=== PATIENT | female | born 1950 | race Hispanic/Latino ===

== ENCOUNTER 2020-12-23 22:35 | Observation (INO) | payer MEDICARE ==
[2020-12-23 23:44] LABS: Basophils # (Auto) 0.1 K/mm3 (0.0-0.1); Basophils % (Auto) 1.2 % (0.0-1.8); Eosinophils # (Auto) 0.1 K/mm3 (0.0-0.4); Eosinophils % (Auto) 1.9 % (0.0-4.3); Hematocrit 35.6 % (30.3-42.9); Hemoglobin 11.7 gm/dl (10.1-14.3); Lymphocytes # (Auto) 1.4 K/mm3 (1.2-5.4); Lymphocytes % (Auto) 19.4 % (13.4-35.0); Mean Corpuscular HGB Conc 33 % (30-34); Mean Corpuscular Volume 90 fl (79-97); Monocytes # (Auto) 0.5 K/mm3 (0.0-0.8); Platelet Count 315 K/mm3 (140-440); Red Blood Count 3.96 M/mm3 (3.65-5.03); Red Cell Distribution Width 13.8 % (13.2-15.2)
[2020-12-23 23:56] LABS: INR 0.99 (0.87-1.13)
[2020-12-23 23:57] LABS: Partial Thromboplastin Time 24.7 Sec. (24.2-36.6)
[2020-12-24 00:06] LABS: Alanine Aminotransferase 14 units/L (7-56); Albumin 3.8 g/dL (3.9-5); BUN/Creatinine Ratio 21; Blood Urea Nitrogen 19 mg/dL (7-17); Calcium 8.1 mg/dL (8.4-10.2); Hemolysis Index 1
[2020-12-24 00:08] LABS: Bilirubin,Direct < 0.2 mg/dL (0-0.2)
[2020-12-24] MEDS ORDERED: INSULIN REGULAR, HUMAN 100 UNITS/1 ML IV ONE (00:13)
[2020-12-24] MEDS ORDERED: ONDANSETRON 4 MG/2 ML INJ IV PRN (00:29)
[2020-12-24] MEDS ORDERED: DEXTROSE 50% IN WATER (25GM) 50 ML SYRINGE IV PRN (00:29)
[2020-12-24] MEDS ORDERED: traMADol 50 MG TAB PO PRN (00:29)
[2020-12-24] MEDS ORDERED: ACETAMINOPHEN 325 MG TAB PO PRN ×2 (00:29)
[2020-12-24] MEDS ORDERED: ALBUTEROL 2.5 MG/3 ML NEBU IH PRN (00:29)
[2020-12-24] MEDS ORDERED: NITROGLYCERIN 0.4 MG TAB SUBL SL PRN (00:29)
[2020-12-24] MEDS ORDERED: MORPHINE 2 MG/1 ML INJ IV PRN (00:29)
[2020-12-24] MEDS ORDERED: hydrALAZINE 20 MG/1 ML INJ IV PRN (00:33)
[2020-12-24] MEDS ORDERED: ASPIRIN 81 MG TAB CHEW PO ONE (00:41)
[2020-12-24] MEDS ORDERED: CLOPIDOGREL 75 MG TAB PO ONE (00:42)
[2020-12-24] MEDS ORDERED: FUROSEMIDE 40 MG/4 ML INJ IV ONE ×2 (00:44→15:47)
[2020-12-24] MEDS: HEPARIN 5,000 UNIT/1 ML VIAL SUB-Q SCH ×3 (05:40→22:38)
[2020-12-24 06:10] LABS: Basophils # (Auto) 0.1 K/mm3 (0.0-0.1); Basophils % (Auto) 1.1 % (0.0-1.8); Eosinophils # (Auto) 0.3 K/mm3 (0.0-0.4); Eosinophils % (Auto) 3.8 % (0.0-4.3); Hematocrit 32.6 % (30.3-42.9); Hemoglobin 11.2 gm/dl (10.1-14.3); Lymphocytes # (Auto) 2.5 K/mm3 (1.2-5.4); Lymphocytes % (Auto) 32.3 % (13.4-35.0); Mean Corpuscular HGB Conc 35 % (30-34); Mean Corpuscular Volume 89 fl (79-97); Monocytes # (Auto) 0.7 K/mm3 (0.0-0.8); Monocytes % (Auto) 9.5 % (0.0-7.3); Platelet Count 253 K/mm3 (140-440); Red Blood Count 3.66 M/mm3 (3.65-5.03); Red Cell Distribution Width 13.5 % (13.2-15.2)
[2020-12-24 06:27] LABS: BUN/Creatinine Ratio 21; Blood Urea Nitrogen 19 mg/dL (7-17); Calcium 8.1 mg/dL (8.4-10.2); Hemolysis Index 14
[2020-12-24] MEDS: INSULIN LISPRO 100 UNIT/ML SUB-Q SCH ×4 (08:10→22:39)
[2020-12-24] MEDS: FAMOTIDINE 20 MG TAB PO SCH ×2 (09:51→22:38)
[2020-12-24] MEDS: hydrALAZINE 25 MG TAB PO SCH ×2 (14:40→22:38)
[2020-12-24] MEDS ORDERED: FUROSEMIDE 20 MG/2 ML INJ IV ONE (16:00)
[2020-12-24] MEDS ORDERED: POTASSIUM CHLORIDE ER 20 MEQ TAB PO ONE (16:32)
[2020-12-25] MEDS: LEVOTHYROXINE 50 MCG TAB PO SCH (06:00)
[2020-12-25] MEDS: hydrALAZINE 25 MG TAB PO SCH ×3 (06:00→22:46)
[2020-12-25] MEDS: HEPARIN 5,000 UNIT/1 ML VIAL SUB-Q SCH ×3 (06:00→22:47)
[2020-12-25 06:21] LABS: Basophils # (Auto) 0.1 K/mm3 (0.0-0.1); Basophils % (Auto) 1.4 % (0.0-1.8); Eosinophils # (Auto) 0.5 K/mm3 (0.0-0.4); Eosinophils % (Auto) 5.6 % (0.0-4.3); Hematocrit 37.7 % (30.3-42.9); Hemoglobin 12.7 gm/dl (10.1-14.3); Lymphocytes # (Auto) 2.5 K/mm3 (1.2-5.4); Lymphocytes % (Auto) 30.3 % (13.4-35.0); Mean Corpuscular HGB Conc 34 % (30-34); Mean Corpuscular Volume 91 fl (79-97); Monocytes # (Auto) 0.6 K/mm3 (0.0-0.8); Monocytes % (Auto) 6.8 % (0.0-7.3); Platelet Count 304 K/mm3 (140-440); Red Blood Count 4.16 M/mm3 (3.65-5.03); Red Cell Distribution Width 13.7 % (13.2-15.2)
[2020-12-25 06:45] LABS: Calcium 8.7 mg/dL (8.4-10.2)
[2020-12-25] MEDS ORDERED: INSULIN GLARGINE 100 UNITS/ML SUB-Q ONE (08:10)
[2020-12-25] MEDS: INSULIN LISPRO 100 UNIT/ML SUB-Q SCH ×4 (08:57→22:47)
[2020-12-25] MEDS ORDERED: METOPROLOL SUCCINATE XL 25 MG TAB PO SCH (10:00)
[2020-12-25] MEDS ORDERED: ASPIRIN EC 325 MG TAB PO SCH (10:00)
[2020-12-25] MEDS: ASPIRIN 81 MG TAB CHEW PO SCH (11:32)
[2020-12-25] MEDS: amLODIPine 5 MG TAB PO SCH (11:32)
[2020-12-25] MEDS: FAMOTIDINE 20 MG TAB PO SCH ×2 (11:35→22:46)
[2020-12-25] MEDS: CLOPIDOGREL 75 MG TAB PO SCH (11:36)
[2020-12-25] MEDS: NICOTINE 21 MG/24 HR PATCH TD SCH (14:39)
[2020-12-25] MEDS ORDERED: INSULIN GLARGINE 100 UNITS/ML SUB-Q SCH (22:00)
[2020-12-26] MEDS: HEPARIN 5,000 UNIT/1 ML VIAL SUB-Q SCH ×3 (06:15→22:58)
[2020-12-26] MEDS: hydrALAZINE 25 MG TAB PO SCH ×3 (06:16→23:00)
[2020-12-26] MEDS: LEVOTHYROXINE 50 MCG TAB PO SCH (06:16)
[2020-12-26] MEDS ORDERED: REGADENOSON 0.4 MG/5 ML INJ IV ONE (08:24)
[2020-12-26] MEDS: INSULIN LISPRO 100 UNIT/ML SUB-Q SCH ×4 (08:57→22:59)
[2020-12-26] MEDS: INSULIN GLARGINE 100 UNITS/ML SUB-Q SCH ×3 (09:45→22:59)
[2020-12-26] MEDS: busPIRone 5 MG TAB PO SCH ×3 (09:57→23:05)
[2020-12-26] MEDS: GABAPENTIN 300 MG CAP PO SCH ×3 (09:57→23:05)
[2020-12-26] MEDS ORDERED: METOPROLOL SUCCINATE XL 25 MG TAB PO SCH (10:00)
[2020-12-26] MEDS: NICOTINE 21 MG/24 HR PATCH TD SCH (12:47)
[2020-12-26] MEDS: CLOPIDOGREL 75 MG TAB PO SCH (15:39)
[2020-12-26] MEDS: METOPROLOL SUCCINATE XL 50 MG TAB PO SCH (15:39)
[2020-12-26] MEDS: ASPIRIN 81 MG TAB CHEW PO SCH (15:39)
[2020-12-26] MEDS: amLODIPine 5 MG TAB PO SCH (15:40)
[2020-12-26] MEDS: FAMOTIDINE 20 MG TAB PO SCH ×2 (15:41→23:00)
[2020-12-26] MEDS ORDERED: traZODone 50 MG TAB PO SCH (22:00)
[2020-12-27] MEDS: HEPARIN 5,000 UNIT/1 ML VIAL SUB-Q SCH ×2 (05:05→13:14)
[2020-12-27] MEDS: hydrALAZINE 25 MG TAB PO SCH ×2 (05:05→13:14)
[2020-12-27] MEDS: LEVOTHYROXINE 50 MCG TAB PO SCH (05:06)
[2020-12-27] MEDS: INSULIN LISPRO 100 UNIT/ML SUB-Q SCH ×2 (08:19→12:42)
[2020-12-27] MEDS: GABAPENTIN 300 MG CAP PO SCH ×3 (08:28→13:14)
[2020-12-27] MEDS: busPIRone 5 MG TAB PO SCH ×3 (08:28→13:15)
[2020-12-27] MEDS: NICOTINE 21 MG/24 HR PATCH TD SCH (11:12)
[2020-12-27] MEDS: CLOPIDOGREL 75 MG TAB PO SCH (11:12)
[2020-12-27] MEDS: ASPIRIN 81 MG TAB CHEW PO SCH (11:12)
[2020-12-27] MEDS: FAMOTIDINE 20 MG TAB PO SCH (11:12)
[2020-12-27] MEDS: amLODIPine 5 MG TAB PO SCH (11:13)
[2020-12-27] MEDS: INSULIN GLARGINE 100 UNITS/ML SUB-Q SCH (11:14)
[2020-12-27] MEDS: METOPROLOL SUCCINATE XL 50 MG TAB PO SCH (13:13)
[2020-12-27 13:17] VITALS: BP 120/59
== END 2020-12-27 13:22 | disposition home or self-care (01) ==
LOC: ED 22:35 → 4A 12-24 00:32
PROVIDERS: ADMIT Hospitalist; ATTEND Internal Medicine
DX: I24.9 Acute ischemic heart disease, unspecified (principal); I25.10 Atherosclerotic heart disease of native coronary artery without angina pectoris; E11.9 Type 2 diabetes mellitus without complications; E11.65 Type 2 diabetes mellitus with hyperglycemia; F41.9 Anxiety disorder, unspecified; G62.9 Polyneuropathy, unspecified; K21.9 Gastro-esophageal reflux disease without esophagitis; M25.59 Pain in other specified joint; R53.81 Other malaise; R77.8 Other specified abnormalities of plasma proteins; Z85.850 Personal history of malignant neoplasm of thyroid; Z79.82 Long term (current) use of aspirin; Z79.02 Long term (current) use of antithrombotics/antiplatelets; Z95.1 Presence of aortocoronary bypass graft; Z59.0 Homelessness
CPT/HCPCS: 36415; 71045; 73521; 78452; 80048; 80076; 82962; 83036; 83880; 84443; 84484; 85025; 85610; 85730; 87641; 93005; 93017; 93306; 96372; 96374; 96375; 96376; 97110; 97161; 97165; 97530; 99285; A9270; A9502; G0378; J0360; J1644; J1940; J2785; J1815

== ENCOUNTER 2020-12-28 00:54 | Emergency (ER) | payer MEDICARE ==
--- NOTE | 2020-12-28 01:15 | Emergency Department Report ---
ED Fall HPI - General Stated Complaint: HEMATOMA Time Seen by Provider: 12/28/20 01:00 - History of Present Illness Initial Comments: Chief complaint: "I keep getting dizzy. I hit my head." HPI: Is a 70-year-old female with history of coronary artery disease status post cardiac stents, anxiety, hypertension, thyroid cancer in remission who presents with dizziness for the past several months. She fell and struck her head on the bedpost. She also has hematoma and skin tear on right upper extremity. She takes clopidogrel. She was recently discharged today from this hospital after evaluation for chest pain. According to electronic medical record review she had normal perfusion myocardial scan performed on 12/26/2020. Patient had 2 coronary stents placed 2 weeks ago at [facility]. Patient explains that she has had dizziness for several months. Previous physician explained that her medications may be causing the dizziness. MD Complaint: fall -: Sudden, This evening Fall From: standing When Fall Occurred: [address] Fall Occurred: home Loss of Consciousness: none, yes Symptoms Prior to Fall: dizziness Severity: mild Context: tripped/slipped Associated Symptoms: other (Mild headache) - Related Data Previous Rx's Medication Instructions Recorded Last Taken Type Aspirin [Adult Aspirin] 81 mg PO QDAY #30 12/26/20 Unknown Rx AtorvaSTATin [Lipitor] 40 mg PO QHS #30 12/26/20 Unknown Rx Clopidogrel [Plavix] 75 mg PO QDAY #30 12/26/20 Unknown Rx Diabetic Supplies,Miscell [Cequr 1 each MC BID #1 miscell 12/26/20 Unknown Rx Simplicity [employer] Supervisor] Gabapentin 600 mg PO TID #90 cap 12/26/20 Unknown Rx Insulin NPH/Regular [Novolin 70/30] 100 unit SQ BIDDIAB #1 vial 12/26/20 Unknown Rx Levothyroxine [Synthroid] 50 mcg PO QDAY #30 12/26/20 Unknown Rx Metoprolol [Lopressor TAB] 25 mg PO QDAY #30 12/26/20 Unknown Rx Nicotine [Habitrol] 21 mg TD QDAY #14 patch 12/26/20 Unknown Rx amLODIPine 5 mg PO DAILY #30 12/26/20 Unknown Rx busPIRone [Buspar] 5 mg PO TID #90 12/26/20 Unknown Rx hydrALAZINE [Apresoline TAB] 25 mg PO TID #90 12/26/20 Unknown Rx traZODone [Desyrel] 150 mg PO QHS #90 12/26/20 Unknown Rx Allergies Allergy/AdvReac Type Severity Reaction Status Date / Time codeine Allergy Unknown Verified 12/23/20 22:44 Penicillins Allergy Unknown Verified 12/23/20 22:44 ED Review of Systems ROS: Stated complaint: HEMATOMA Other details as noted in HPI Comment: All other systems reviewed and negative Constitutional: denies: fever, malaise Respiratory: denies: cough, shortness of breath Cardiovascular: denies: chest pain Gastrointestinal: denies: abdominal pain, nausea, vomiting Neurological: headache. denies: numbness, paresthesias, abnormal gait ED Past Medical Hx - Past Medical History Previous Medical History?: Yes Hx Hypertension: Yes Hx Heart Attack/AMI: (stent x2) Hx Congestive Heart Failure: No Hx Diabetes: Yes Hx Asthma: Yes Hx COPD: Yes Additional medical history: Coronary artery disease, thyroid cancer - Surgical History Past Surgical History?: Yes Hx Coronary Stent: Yes - Social History Smoking Status: Never Smoker Substance Use Type: None - Medications Home Medications: Home Medications Medication Instructions Recorded Confirmed Last Taken Type Aspirin [Adult Aspirin] 81 mg PO QDAY #30 12/26/20 Unknown Rx AtorvaSTATin [Lipitor] 40 mg PO QHS #30 12/26/20 Unknown Rx Clopidogrel [Plavix] 75 mg PO QDAY #30 12/26/20 Unknown Rx Diabetic Supplies,Miscell [Cequr 1 each MC BID #1 miscell 12/26/20 Unknown Rx [employer] Supervisor] Gabapentin 600 mg PO TID #90 cap 12/26/20 Unknown Rx Insulin NPH/Regular [Novolin 70/30] 100 unit SQ BIDDIAB #1 vial 12/26/20 Unknown Rx Levothyroxine [Synthroid] 50 mcg PO QDAY #30 12/26/20 Unknown Rx Metoprolol [Lopressor TAB] 25 mg PO QDAY #30 12/26/20 Unknown Rx Nicotine [Habitrol] 21 mg TD QDAY #14 patch 12/26/20 Unknown Rx amLODIPine 5 mg PO DAILY #30 12/26/20 Unknown Rx busPIRone [Buspar] 5 mg PO TID #90 12/26/20 Unknown Rx hydrALAZINE [Apresoline TAB] 25 mg PO TID #90 12/26/20 Unknown Rx traZODone [Desyrel] 150 mg PO QHS #90 12/26/20 Unknown Rx ED Physical Exam - General Limitations: No Limitations General appearance: alert, in no apparent distress - Head Head exam: Present: atraumatic, normocephalic, other (No hematoma no laceration) - Eye Eye exam: Present: normal appearance - ENT ENT exam: Present: mucous membranes moist - Neck Neck exam: Present: normal inspection, full ROM - Respiratory Respiratory exam: Present: normal lung sounds bilaterally. Absent: respiratory distress, wheezes, rales, rhonchi - Cardiovascular Cardiovascular Exam: Present: regular rate, normal rhythm, normal heart sounds. Absent: systolic murmur, diastolic murmur, rubs, gallop - GI/Abdominal GI/Abdominal exam: Present: soft, normal bowel sounds. Absent: distended, tenderness, guarding, rebound - Extremities Exam Extremities exam: Present: other (Right elbow: Skin avulsion no active bleeding, right hand hematoma at dorsal aspect) - Neurological Exam Neurological exam: Present: alert, oriented X3, normal gait - Psychiatric Psychiatric exam: Present: normal mood, flat affect - Skin Skin exam: Present: warm, dry, intact, normal color. Absent: rash ED Medical Decision Making - Radiology Data Radiology results: report reviewed Patient Name: FABIENNE ARMENDARIZ Gender: Female Date of : 1950 Referring Provider: JONELLE MARI Organization: [facility] Accession Number: [id number] Requested Date: December 28, 2020 01:31 Report Status: Final Requested Procedure: 1 Procedure Description: CT head/brain wo con Modality: CT Findings Reporting MD: Noris Canales Dictation Time: December 28, 2020 00:40 Furniture Decals Inspector: Not available Journal Box Inspector Date: CT head/brain wo con INDICATION / CLINICAL INFORMATION: Head trauma, elderly, anticoagulation. TECHNIQUE: Axial CT imaging of the brain was obtained without contrast. Coronal and sagittal reformatted imaging obtained and reviewed. All CT scans at this location are performed using CT dose reduction for ALARA by means of automated exposure control. COMPARISON: None available. FINDINGS: No intracranial hemorrhage, mass, or midline shift is noted. No extra-axial fluid collection or suggestion of acute territorial infarction. Ventricular system and basilar cisterns are unremarkable. There is evidence for old lacunar infarction within the left posterior limb of the internal capsule and in the head of the left caudate lobe.. There is moderate hypoattenuation throughout the cerebral white matter bilaterally consistent with microvascular angiopathy. Visualized paranasal sinuses show mild mucosal thickening within the bilateral ethmoid air cells. The remainder the sinuses are clear. No calvarial fracture noted. IMPRESSION: 1. No acute intracranial abnormality. 2. Age-related changes. 3. Small lacunar infarcts within the left basal ganglia are old. 4. Mucosal thickening within the ethmoid air cells bilaterally. Signer Name: Noris Canales MD Signed: 12/28/2020 12:40 AM Workstation Name: [id number] - Medical Decision Making One. Closed head injury on dual antiplatelet therapy including clopidogrel. CT head indicated due to age and medication. CT head ruled out acute traumatic injury. Two. Skin avulsion improperly treated by EMS with bandage. Three. Right hand hematoma no indication of fracture Four. History of dizziness. Has steady gait. No evidence of acute process. Patient is discharged back to her current place of residence. She will be staying at the [facility] until next month. She plans to move to [place] with her fianc. Critical care attestation.: If time is entered above; I have spent that time in minutes in the direct care of this critically ill patient, excluding procedure time. ED Disposition Clinical Impression: Closed head injury, Avulsion of skin of elbow, Contusion of right hand Disposition: DC-01 TO HOME OR SELFCARE Is pt being admited?: No Does the pt Need Aspirin: No Condition: Stable
--- NOTE | 2020-12-28 01:44 | Cat Scan Report ---
CT head/brain wo con INDICATION / CLINICAL INFORMATION: Head trauma, elderly, anticoagulation. TECHNIQUE: Axial CT imaging of the brain was obtained without contrast. Coronal and sagittal reformatted imaging obtained and reviewed. All CT scans at this location are performed using CT dose reduction for ALAR A by means of automated exposure control. COMPARISON: None available. FINDINGS: No intracranial hemorrhage, mass, or midline shift is noted. No extra-axial fluid collection or sugge stion of acute territorial infarction. Ventricular system and basilar cisterns are unremarkable. Ther e is evidence for old lacunar infarction within the left posterior limb of the internal capsule and i n the head of the left caudate lobe.. There is moderate hypoattenuation throughout the cerebral white matter bilaterally consistent with microvascular angiopathy. Visualized paranasal sinuses show mild mucosal thickening within the bilateral ethmoid air cells. The remainder the sinuses are clear. No calvarial fracture noted. IMPRESSION: 1. No acute intracranial abnormality. 2. Age-related changes. 3. Small lacunar infarcts within the left basal ganglia are old. 4. Mucosal thickening within the ethmoid air cells bilaterally. Signer Name: Noris Canales MD Signed: 12/28/2020 1:40 AM Workstation Name: [id number]
[2020-12-28] MEDS ORDERED: ACETAMINOPHEN 500 MG TAB PO ONE (02:02)
[2020-12-28 03:37] VITALS: BP 160/92
== END 2020-12-28 03:37 | disposition home or self-care (01) ==
LOC: ED 00:54
DX: S09.90XA Unspecified injury of head, initial encounter (principal); S60.221A Contusion of right hand, initial encounter; I10 Essential (primary) hypertension; E11.9 Type 2 diabetes mellitus without complications; J44.9 Chronic obstructive pulmonary disease, unspecified; Z98.890 Other specified postprocedural states; Z79.899 Other long term (current) drug therapy; Z79.4 Long term (current) use of insulin; Z88.0 Allergy status to penicillin; Z88.8 Allergy status to other drugs, medicaments and biological substances; W18.09XA Striking against other object with subsequent fall, initial encounter; Y93.89 Activity, other specified; Y92.009 Unspecified place in unspecified non-institutional (private) residence as the place of occurrence of the external cause; Y99.8 Other external cause status
CPT/HCPCS: 70450

== ENCOUNTER 2021-01-05 16:59 | Emergency (ER) | payer MEDICARE ==
[2021-01-05] MEDS ORDERED: IPRATROPIUM/ALBUTEROL SULFATE 3 ML AMPUL.NEB IH ONE (17:05)
--- NOTE | 2021-01-05 17:11 | Emergency Department Report ---
HPI - General Time Seen by Provider: 01/05/21 17:03 - HPI HPI: This is a 70-year-old female presents to the emergency department via EMS from a nearby street with a complaint of shortness of breath. The patient was walking towards a convenient store when she began having shortness of breath that worsened with exertion. She sat down to rest and someone called for EMS. When EMS arrived the patient said that she wanted to be brought to her home because otherwise she would not have a way to get home. An Accu-Chek was done and the patient was found to have a blood sugar of about 270. Otherwise the vitals reported by EMS appear reassuring including being afebrile. The patient has a past medical history of COPD, but is not oxygen dependent, hypertension, diabetes, previous thyroid cancer, and coronary artery disease with a recent cardiac stent placed about 1 month ago. She does not have a primary care physician. 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 She denies any tobacco or illicit drug use. No recent travel or sick contacts at home. ED Past Medical Hx - Past Medical History Hx Hypertension: Yes Hx Heart Attack/AMI: (stent x2) Hx Congestive Heart Failure: No Hx Diabetes: Yes Hx Asthma: Yes Hx COPD: Yes Additional medical history: Coronary artery disease, thyroid cancer - Surgical History Hx Coronary Stent: Yes - Social History Smoking Status: Never Smoker Substance Use Type: None - Medications Home Medications: Home Medications Medication Instructions Recorded Confirmed Last Taken Type Aspirin [Adult Aspirin] 81 mg PO QDAY #30 12/26/20 Unknown Rx AtorvaSTATin [Lipitor] 40 mg PO QHS #30 12/26/20 Unknown Rx Clopidogrel [Plavix] 75 mg PO QDAY #30 12/26/20 Unknown Rx Diabetic Supplies,Miscell [Cequr 1 each MC BID #1 miscell 12/26/20 Unknown Rx Simplicity Construction 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] Gabapentin 600 mg PO TID #90 cap 12/26/20 Unknown Rx Insulin NPH/Regular [Novolin 70/30] 100 unit SQ BIDDIAB #1 vial 12/26/20 Unknown Rx Levothyroxine [Synthroid] 50 mcg PO QDAY #30 12/26/20 Unknown Rx Metoprolol [Lopressor TAB] 25 mg PO QDAY #30 12/26/20 Unknown Rx Nicotine [Habitrol] 21 mg TD QDAY #14 patch 12/26/20 Unknown Rx amLODIPine 5 mg PO DAILY #30 12/26/20 Unknown Rx busPIRone [Buspar] 5 mg PO TID #90 12/26/20 Unknown Rx hydrALAZINE [Apresoline TAB] 25 mg PO TID #90 12/26/20 Unknown Rx traZODone [Desyrel] 150 mg PO QHS #90 12/26/20 Unknown Rx Albuterol Mdi (or & Nicu Only) 2 puff IH QID PRN #8.5 gram 01/05/21 Unknown Rx [ProAir HFA Inhaler] ED Review of Systems ROS: Stated complaint: SOB WITH EXERTION Other details as noted in HPI Comment: All other systems reviewed and negative Constitutional: denies: chills, fever Eyes: denies: eye pain, vision change ENT: denies: ear pain, throat pain Respiratory: shortness of breath, SOB with exertion Cardiovascular: denies: palpitations, edema Gastrointestinal: denies: abdominal pain, vomiting Genitourinary: denies: dysuria, discharge Musculoskeletal: denies: back pain, arthralgia Skin: denies: rash, lesions Neurological: denies: headache, weakness Physical Exam - Physical Exam Physical Exam: GENERAL: The patient is well-developed well-nourished. HENT: Normocephalic. Atraumatic. Patient has moist mucous membranes. EYES: Extraocular motions are intact. NECK: Supple. Trachea is midline. CHEST/LUNGS: Clear to auscultation. No tachypnea or accessory muscle use. There is no respiratory distress noted. HEART/CARDIOVASCULAR: Regular. There is no tachycardia. There is no murmur. ABDOMEN: Abdomen is soft, nontender. Patient has normal bowel sounds. There is no abdominal distention. SKIN: Skin is warm and dry. NEURO: The patient is awake, alert, and oriented. The patient is cooperative. The patient has no focal neurologic deficits. Normal speech. MUSCULOSKELETAL: There is no tenderness or deformity. There is no limitation range of motion. ED Medical Decision Making - Lab Data Result diagrams: 01/05/21 17:17 01/05/21 17:17 - EKG Data -: EKG Interpreted by Me EKG shows normal: sinus rhythm, axis (Left axis deviation), intervals (Prolonged SC interval), QRS complexes (Q waves to the anterior leads, LVH, left anterior fascicular block), ST-T waves Rate: normal - EKG Data When compared to previous EKG there are: no significant change Interpretation: unchanged when compared t (12/23/20) - Radiology Data Radiology results: report reviewed, image reviewed interpreted by me: Chest x-ray does not show any acute process. There are no pleural effusions, obvious pneumonia and there is no pneumothorax. VQ scan is low probability for a pulmonary embolism. - Medical Decision Making This patient presents to the emergency department with a complaint of some shortness of breath that worsens with exertion that started just prior to presentation. On examination she has normal heart and lung sounds auscultation. She does not appear in any respiratory or acute distress. Chest x-ray does not show any pneumonia, pleural effusions, pneumothorax, focal consolidation, widened mediastinum, or any other acute process. EKG does not have any morphology consistent with ST elevation myocardial infarction or any dysrhythmia. It is unchanged from her previous EKG about 2 weeks ago. During her last admission the patient also had a negative stress test. The patient's labs show mild renal insufficiency with a GFR of 41. First troponin negative. No leukocytosis. Slight elevation in the D-dimer level. The patient is due to have a ventilation/perfusion scan to rule out a PE. The patient will also have a second troponin drawn. The patient's blood sugar came back at about 370. She was given a dose of IV insulin and some mild IV fluid resuscitation. There is no elevation in the anion gap and she does not appear to be in diabetic ketoacidosis. This case will be signed out to my colleague, Dr. Hermosillo, to follow-up results of the VQ scan, the second troponin, improvement in the hyperglycemia, and make sure that the patient is able to ambulate without any significant oxygen desaturation or increased work of breathing. Critical Care Time: No Critical care attestation.: If time is entered above; I have spent that time in minutes in the direct care of this critically ill patient, excluding procedure time. ED Disposition Clinical Impression: Hyperglycemia, Shortness of breath Disposition: DC-01 TO HOME OR SELFCARE Is pt being admited?: No Condition: Stable Instructions: Shortness of Breath, Adult, [id number], Hyperglycemia Additional Instructions: I have given you a referral for a few different local primary care physicians, as well as a primary care clinic. Please follow-up with a primary care physician in the next few days. Take your diabetes medications as previously prescribed. Try to stay away from foods that are high in sugar, carbohydrates and starches. Keep a blood sugar log. Return to the emergency department with any worsening of your symptoms, new or concerning symptoms not addressed during this current emergency department visit, or with any acute distress. Prescriptions: Albuterol Mdi (or & Nicu Only) [ProAir HFA Inhaler] 2 puff IH QID PRN #8.5 gram PRN Reason: Shortness Of Breath Referrals: PRIMARY CAREMD [Primary Care Provider] - 2-3 Days LETTY ZHAO MD [Staff Physician] - 2-3 Days ALISON KAISER MD [Staff Physician] - 2-3 Days [facility] [Provider Group] - 2-3 Days Time of Disposition: 19:37
[2021-01-05 17:32] LABS: Basophils # (Auto) 0.1 K/mm3 (0.0-0.1); Basophils % (Auto) 0.8 % (0.0-1.8); Eosinophils # (Auto) 0.3 K/mm3 (0.0-0.4); Eosinophils % (Auto) 4.1 % (0.0-4.3); Hematocrit 37.6 % (30.3-42.9); Hemoglobin 12.8 gm/dl (10.1-14.3); Lymphocytes # (Auto) 1.4 K/mm3 (1.2-5.4); Lymphocytes % (Auto) 17.2 % (13.4-35.0); Mean Corpuscular HGB Conc 34 % (30-34); Mean Corpuscular Volume 91 fl (79-97); Monocytes # (Auto) 0.7 K/mm3 (0.0-0.8); Monocytes % (Auto) 8.6 % (0.0-7.3); Platelet Count 308 K/mm3 (140-440); Red Blood Count 4.15 M/mm3 (3.65-5.03)
[2021-01-05 17:34] VITALS: BP 143/80
[2021-01-05 17:42] LABS: INR 0.94 (0.87-1.13)
[2021-01-05 17:57] LABS: Albumin 3.6 g/dL (3.9-5); Calcium 8.4 mg/dL (8.4-10.2)
[2021-01-05] MEDS ORDERED: SODIUM CHLORIDE 0.9% 500 ML 500 ML IV ONE (18:03)
[2021-01-05] MEDS ORDERED: INSULIN REGULAR, HUMAN 100 UNITS/1 ML IV ONE (18:03)
--- NOTE | 2021-01-05 18:18 | XRay Report ---
CHEST 1 VIEW INDICATION / CLINICAL INFORMATION: SOB. Dyspnea FINDINGS: SUPPORT DEVICES: None. HEART / MEDIASTINUM: No significant abnormality. LUNGS / PLEURA: No significant pulmonary or pleural abnormality. No pneumothorax. ADDITIONAL FINDINGS: No significant additional findings. IMPRESSION: 1. No acute findings. Signer Name: Sha Flood MD Signed: 01/05/2021 6:14 PM Workstation Name: [id number]
--- NOTE | 2021-01-05 20:13 | Nuclear Medicine Report ---
NUCLEAR MEDICINE PERFUSION LUNG SCAN INDICATION / CLINICAL INFORMATION: Shortness of breath and elevated d-dimer. TECHNIQUE: 5.0 mCi of Tc-99m MAA were given by IV. COMPARISON: Chest radiograph dated today at 5:11 PM. FINDINGS: PERFUSION: Small perfusion defect in the lingula with associated subsegmental parenchymal disease on the current chest radiograph. No other perfusion abnormality. ADDITIONAL FINDINGS: None. IMPRESSION: Low probability for pulmonary embolism. Signer Name: Ede Montes MD Signed: 01/05/2021 8:08 PM Workstation Name: [id number]
--- NOTE | 2021-01-06 19:43 | Electrocardiograph Report ---
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 Electronically Signed On 01-06-2021 19:43:02 EDT by Dante Sapp
== END 2021-01-05 22:00 | disposition home or self-care (01) ==
LOC: ED 16:59
DX: E11.65 Type 2 diabetes mellitus with hyperglycemia (principal); R06.02 Shortness of breath; I10 Essential (primary) hypertension; J44.9 Chronic obstructive pulmonary disease, unspecified; Z98.890 Other specified postprocedural states; Z79.4 Long term (current) use of insulin; Z79.899 Other long term (current) drug therapy; Z88.0 Allergy status to penicillin; Z88.8 Allergy status to other drugs, medicaments and biological substances
CPT/HCPCS: 36415; 71045; 78580; 80053; 82962; 83880; 84484; 85025; 85379; 85610; 93005; 96374; 99284; A9540; J7040; J1815

== ENCOUNTER 2021-01-11 20:08 | Emergency (ER) | payer MEDICARE ==
--- NOTE | 2021-01-12 01:27 | XRay Report ---
CHEST 2 VIEWS INDICATION / CLINICAL INFORMATION: Chest Pain with SOB. COMPARISON: None available. FINDINGS: SUPPORT DEVICES: None. HEART / MEDIASTINUM: No significant abnormality. LUNGS / PLEURA: Mild atelectasis in the left lower lung No pneumothorax. ADDITIONAL FINDINGS: No significant additional findings. IMPRESSION: Mild atelectasis in left lower lung. Signer Name: Lenard Oden MD Signed: 01/12/2021 1:22 AM Workstation Name: [id number]
[2021-01-12] MEDS ORDERED: ALBUTEROL 8.5 GM MDI INHALATION IH PRN (01:52)
[2021-01-12] MEDS ORDERED: CLOPIDOGREL 75 MG TAB PO STA (01:52)
[2021-01-12] MEDS ORDERED: ASPIRIN EC 81 MG TAB PO STA (01:52)
[2021-01-12] MEDS ORDERED: ACETAMINOPHEN 325 MG TAB PO ONE (01:53)
[2021-01-12] MEDS ORDERED: FAMOTIDINE 20 MG TAB PO ONE (01:53)
--- NOTE | 2021-01-12 02:00 | Emergency Department Report ---
ED General Adult HPI - General Chief complaint: Chest Pain Stated complaint: CHEST PAIN PUI?: No Time Seen by Provider: 01/12/21 01:46 Source: patient, EMS ( EMS documentation not available at time of chart dictation ), RN notes reviewed, old records reviewed Mode of arrival: Wheelchair Limitations: No Limitations - History of Present Illness Initial comments: The patient is a 70-year-old female. She recently relocated here from [facility]. She has a past medical history of heart disease with stent, thyroid cancer, partial thyroidectomy, mobility issues, currently with a wheelchair, and is currently undomiciled living in a [facility] house. She was recently admitted to this hospital for chest pain, had a nuclear stress test which was negative for ischemic findings, echocardiogram which was unremarkable, and a nuclear medicine study which was low probability for pulmonary embolism. She has had multiple repeat ER visits for multiple issues over the past few weeks. She is also had a fairly extensive evaluation and intervention courtesy of the case management team. Today, the patient presents to the ER with a complaint of chest pain that is central and left-sided, that moves to her left arm. There is no vomiting. There is no diaphoresis. There is chronic shortness of breath. There is no fever. No ocular crusting. Questionable loss of taste and smell. No abdominal pain. No urinary symptoms. No focal extremity weakness/numbness. No anxiety. No homicidality or suicidality. During the history and physical examination, I am chaperoned by Salome Alvarez The patient tells me that she is not here because of her underlying social issues. Her pain started approximately 7 hours ago. Of note, this is the patient's fifth visit to this emergency room since recently relocating to this area, from [facility]. She was admitted on December 24, had a cardiac nuclear stress test and echocardiogram which were fairly unremarkable, seen in consultation with cardiology, who did not recommend ischemic work-up after the aforementioned. She has also had a nuclear medicine study, which has been low probability for pulmonary embolism. The patient has also been seen multiple times by case management to set her up for outpatient living arrangements. Recent visits include December 24, December 28, January 05, January 09, and most recently yesterday, January 11, into today. -: Gradual Location: chest Severity scale (0 -10): 8 Consistency: intermittent Improves with: none Worsens with: none - Related Data Previous Rx's Medication Instructions Recorded Last Taken Type Aspirin [Adult Aspirin] 81 mg PO QDAY #30 12/26/20 Unknown Rx AtorvaSTATin [Lipitor] 40 mg PO QHS #30 12/26/20 Unknown Rx Clopidogrel [Plavix] 75 mg PO QDAY #30 12/26/20 Unknown Rx Diabetic Supplies,Miscell [Cequr 1 each MC BID #1 miscell 12/26/20 Unknown Rx Simplicity Childhood Development Teacher] Gabapentin 600 mg PO TID #90 cap 12/26/20 Unknown Rx Insulin NPH/Regular [Novolin 70/30] 100 unit SQ BIDDIAB #1 vial 12/26/20 Unknown Rx Levothyroxine [Synthroid] 50 mcg PO QDAY #30 12/26/20 Unknown Rx Metoprolol [Lopressor TAB] 25 mg PO QDAY #30 12/26/20 Unknown Rx Nicotine [Habitrol] 21 mg TD QDAY #14 patch 12/26/20 Unknown Rx amLODIPine 5 mg PO DAILY #30 12/26/20 Unknown Rx busPIRone [Buspar] 5 mg PO TID #90 12/26/20 Unknown Rx hydrALAZINE [Apresoline TAB] 25 mg PO TID #90 12/26/20 Unknown Rx traZODone [Desyrel] 150 mg PO QHS #90 12/26/20 Unknown Rx Albuterol Mdi (or & Nicu Only) 2 puff IH QID PRN #8.5 gram 01/05/21 Unknown Rx [ProAir HFA Inhaler] Allergies Allergy/AdvReac Type Severity Reaction Status Date / Time codeine Allergy Unknown Verified 12/23/20 22:44 Penicillins Allergy Unknown Verified 12/23/20 22:44 ED Review of Systems ROS: Stated complaint: CHEST PAIN Other details as noted in HPI Constitutional: denies: fever Eyes: denies: eye discharge ENT: denies: epistaxis Respiratory: denies: cough Cardiovascular: chest pain Gastrointestinal: nausea. denies: abdominal pain, vomiting Musculoskeletal: myalgia Neurological: weakness Psychiatric: denies: homicidal thoughts, suicidal thoughts 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 - Social History Smoking Status: Never Smoker - Medications Home Medications: Home Medications Medication Instructions Recorded Confirmed Last Taken Type Aspirin [Adult Aspirin] 81 mg PO QDAY #30 12/26/20 Unknown Rx AtorvaSTATin [Lipitor] 40 mg PO QHS #30 12/26/20 Unknown Rx Clopidogrel [Plavix] 75 mg PO QDAY #30 12/26/20 Unknown Rx Diabetic Supplies,Miscell [Cequr 1 each MC BID #1 miscell 12/26/20 Unknown Rx Sim[employer] Childhood Development Teacher] Gabapentin 600 mg PO TID #90 cap 12/26/20 Unknown Rx Insulin NPH/Regular [Novolin 70/30] 100 unit SQ BIDDIAB #1 vial 12/26/20 Unknown Rx Levothyroxine [Synthroid] 50 mcg PO QDAY #30 12/26/20 Unknown Rx Metoprolol [Lopressor TAB] 25 mg PO QDAY #30 12/26/20 Unknown Rx Nicotine [Habitrol] 21 mg TD QDAY #14 patch 12/26/20 Unknown Rx amLODIPine 5 mg PO DAILY #30 12/26/20 Unknown Rx busPIRone [Buspar] 5 mg PO TID #90 12/26/20 Unknown Rx hydrALAZINE [Apresoline TAB] 25 mg PO TID #90 12/26/20 Unknown Rx traZODone [Desyrel] 150 mg PO QHS #90 12/26/20 Unknown Rx Albuterol Mdi (or & Nicu Only) 2 puff IH QID PRN #8.5 gram 01/05/21 Unknown Rx [ProAir HFA Inhaler] ED Physical Exam - General Limitations: No Limitations General appearance: alert, in no apparent distress - Head Head exam: Present: atraumatic, normocephalic - Eye Eye exam: Present: normal appearance, EOMI. Absent: nystagmus - ENT ENT exam: Present: normal exam, normal orophraynx, mucous membranes moist, normal external ear exam - Neck Neck exam: Present: normal inspection, full ROM. Absent: tenderness, meningismus - Respiratory Respiratory exam: Present: normal lung sounds bilaterally. Absent: respiratory distress, wheezes, rales, rhonchi, stridor, decreased breath sounds - Cardiovascular Cardiovascular Exam: Present: regular rate, normal rhythm, normal heart sounds. Absent: bradycardia, tachycardia, irregular rhythm, systolic murmur, diastolic murmur, rubs, gallop - GI/Abdominal GI/Abdominal exam: Present: soft, normal bowel sounds. Absent: distended, tenderness, guarding, rebound, rigid, pulsatile mass - Extremities Exam Extremities exam: Present: normal inspection, full ROM, other (2+ pulses noted in the bilateral upper and lower extremities. There is no palpable cord. negative Homans sign. Muscular compartments are soft. The pelvis is stable.). Absent: calf tenderness - Back Exam Back exam: Present: normal inspection, full ROM. Absent: tenderness, CVA tenderness (R), CVA tenderness (L), paraspinal tenderness, vertebral tenderness - Neurological Exam Neurological exam: Present: alert, oriented X3, other (No facial droop. Tongue midline. Extraocular movements intact bilaterally. Facial sensation intact to light touch in V1, V2, V3 distribution bilaterally. 5 and a 5 strength in 4 extremities. Sensation intact to light touch in 4 extremities.). Absent: motor sensory deficit - Psychiatric Psychiatric exam: Present: normal affect, normal mood. Absent: homicidal ideation, suicidal ideation - Skin Skin exam: Present: warm, dry, intact, normal color. Absent: rash ED Course Vital Signs 01/12/21 01/12/21 01/12/21 01:18 02:58 03:26 Temperature 99.4 F Pulse Rate 77 68 Respiratory 20 16 16 Rate Blood Pressure 167/89 175/86 [Right] O2 Sat by Pulse 98 99 Oximetry - Reevaluation(s) Reevaluation #1: 01/12/21 02:06 Differential diagnosis, including but not limited to: Chronic chest pain, c hronic coronary artery disease, chronic stable angina, secondary gain, GERD, gastritis, hiatal hernia, reflux Assessment and plan: 70-year-old female, who is afebrile, with reassuring vital signs, presenting on her fifth hospital visit within the past month, with recurrent complaint of chest pain. EKG unchanged from prior. Recently had a low probability nuclear medicine study for pulmonary embolism, and she is not currently tachycardic, tachypneic or hypoxic, and I find her to be low risk by Wells criteria. Her cardiovascular risk factor profile are reviewed and appreciated, however, recently seen by cardiology, has recently had multiple negative troponins, and unremarkable nuclear cardiac stress test. While the patient tells me that she is not here for the purposes of seeking intermediate, I do suspect that the patient is not being honest with me, and much of the motivation behind her presentation is for the purposes of secondary gain. However, she is not homicidal, not suicidal, she exhibits decision-making capacity, she is calm and cooperative, does not meet criteria for 1013 hold or involuntary hold. On my initial evaluation, she is saturating 100% on room air, she is quite engaged with her cellular phone, noted to be texting. She does not appear to be in any acute distress at this time. We will treat symptoms, obtain EKG x2, troponin x2, continue current outpatient medications. Patient may follow-up with her outpatient air cargo specialist for further evaluation and management if laboratory studies otherwise unremarkable, which we anticipate. The patient has recently been risk stratified for pulmonary embolism as well as for coronary artery disease, and she does not appear to be clinically or acutely decompensated at this time. 01/12/21 02:43 Patient watching TV. Her second EKG is unchanged from prior. Her initial laboratory studies are unremarkable. She is resting comfortably, not actively vomiting, not sweating, does not appear to be in any acute distress. 01/12/21 04:53 EKG unchanged x2. Troponin negative x2. Patient in no acute distress. Suitable for discharge with outpatient follow-up. ED Medical Decision Making - Lab Data Result diagrams: 01/12/21 01:39 01/12/21 01:39 Vital Signs 01/12/21 01:18 Temperature 99.4 F Pulse Rate 77 Respiratory 20 Rate Blood Pressure 167/89 [Right] O2 Sat by Pulse 98 Oximetry - EKG Data -: EKG Interpreted by Me EKG shows normal: sinus rhythm Rate: normal - EKG Data Interpretation: unchanged when compared t 01/12/21 02:03 EKG interpreted at 01: 35 Then, 78 bpm. First-degree AV block, left axis deviation, left anterior fascicular block, and poor R wave progression. There is motion artifact. This is an abnormal EKG. This is not a STEMI. This appears to be unchanged from prior EKG from 01/05/2021 - Radiology Data Radiology results: pending, report reviewed, image reviewed CHEST 2 VIEWS INDICATION / CLINICAL INFORMATION: Chest Pain with SOB. COMPARISON: None available. FINDINGS: SUPPORT DEVICES: None. HEART / MEDIASTINUM: No significant abnormality. LUNGS / PLEURA: Mild atelectasis in the left lower lung No pneumothorax. ADDITIONAL FINDINGS: No significant additional findings. IMPRESSION: Mild atelectasis in left lower lung. Signer Name: Lenard Oden MD Signed: 01/12/2021 12:22 AM Workstation Name: [id number] CHEST 1 VIEW 01/08/2021 10:49 PM INDICATION / CLINICAL INFORMATION: weakness, dizziness. COMPARISON: 01/05/2021 FINDINGS: SUPPORT DEVICES: None. HEART / MEDIASTINUM: No significant abnormality. LUNGS / PLEURA: Mild atelectasis in the left lower lung No pneumothorax. ADDITIONAL FINDINGS: No significant additional findings. IMPRESSION: 1. No acute findings. Signer Name: Lenard Oden MD Signed: 01/08/2021 10:06 PM NUCLEAR MEDICINE PERFUSION LUNG SCAN INDICATION / CLINICAL INFORMATION: Shortness of breath and elevated d-dimer. TECHNIQUE: 5.0 mCi of Tc-99m MAA were given by IV. COMPARISON: Chest radiograph dated today at 5:11 PM. FINDINGS: PERFUSION: Small perfusion defect in the lingula with associated subsegmental parenchymal disease on the current chest radiograph. No other perfusion abnormality. ADDITIONAL FINDINGS: None. IMPRESSION: Low probability for pulmonary embolism. Signer Name: Ede Montes MD Signed: 01/05/2021 7:08 PM Workstation Name: [id number] Critical care attestation.: If time is entered above; I have spent that time in minutes in the direct care of this critically ill patient, excluding procedure time. ED Disposition Clinical Impression: Chest pain Disposition: DC-01 TO HOME OR SELFCARE Is pt being admited?: No Does the pt Need Aspirin: No Condition: Good Instructions: Nonspecific Chest Pain, Adult Additional Instructions: Please continue current outpatient medications. Please follow-up with a primary care doctor or air cargo specialist within the next 3 to 5 days. Please return to the emergency room right away with new pain, worsened pain, migration of pain, projectile vomiting, change in mental status, confusion, inability to tolerate liquid feeds, new, worsened or different symptoms not present on the initial emergency room evaluation. Referrals: TRIXIE BRIGGS MD [Staff Physician] - 3-5 Days ALISON KAISER MD [Staff Physician] - 3-5 Days
[2021-01-12 02:08] LABS: Basophils # (Auto) 0.1 K/mm3 (0.0-0.1); Basophils % (Auto) 0.7 % (0.0-1.8); Eosinophils # (Auto) 0.4 K/mm3 (0.0-0.4); Eosinophils % (Auto) 3.3 % (0.0-4.3); Hematocrit 40.4 % (30.3-42.9); Hemoglobin 13.6 gm/dl (10.1-14.3); Lymphocytes # (Auto) 2.9 K/mm3 (1.2-5.4); Lymphocytes % (Auto) 26.2 % (13.4-35.0); Mean Corpuscular HGB Conc 34 % (30-34); Mean Corpuscular Volume 90 fl (79-97); Monocytes # (Auto) 0.9 K/mm3 (0.0-0.8); Monocytes % (Auto) 8.4 % (0.0-7.3); Platelet Count 266 K/mm3 (140-440); Red Blood Count 4.51 M/mm3 (3.65-5.03); Red Cell Distribution Width 13.9 % (13.2-15.2)
[2021-01-12 02:32] LABS: Alanine Aminotransferase 8 units/L (7-56); Albumin 4.2 g/dL (3.9-5); BUN/Creatinine Ratio 18; Blood Urea Nitrogen 21 mg/dL (7-17); Hemolysis Index 3
[2021-01-12] MEDS ORDERED: LEVOTHYROXINE 50 MCG TAB PO SCH (06:00)
[2021-01-12] MEDS ORDERED: GABAPENTIN 300 MG CAP PO SCH (08:00)
[2021-01-12] MEDS ORDERED: GABAPENTIN 300 MG PO SCH (08:00)
[2021-01-12] MEDS ORDERED: hydrALAZINE 25 MG TAB PO SCH (08:00)
[2021-01-12] MEDS ORDERED: INSULIN NPH SQ SCH (08:00)
[2021-01-12 09:00] VITALS: BP 133/66
[2021-01-12] MEDS ORDERED: NICOTINE 21 MG/24 HR PATCH TD SCH (10:00)
[2021-01-12] MEDS ORDERED: [UNRECOGNIZED DRUG - OTHER] MC SCH (10:00)
[2021-01-12] MEDS ORDERED: METOPROLOL TARTRATE 25 MG TAB PO SCH (10:00)
[2021-01-12] MEDS ORDERED: amLODIPine 5 MG TAB PO SCH (10:00)
[2021-01-12] MEDS ORDERED: LEVOTHYROXINE 50 MCG PO SCH (10:00)
--- NOTE | 2021-01-12 14:22 | Electrocardiograph Report ---
[facility] Test Date: 2021-01-12 Test Time: 01:35:40 Pat Name: FABIENNE ARMENDARIZ Department: Room: Gender: F Senior Lead Software Engineer: VOLODYMYR : 1950 Requested By: MARIA DE JESUS JOYCE Order Number: [id number] Reading MD: Marisa Paredes Measurements Intervals [place] Rate: 78 P: -37 NC: 231 QRS: -33 QRSD: 90 T: 70 QT: 413 QTc: 470 Interpretive Statements Sinus rhythm Prolonged NC interval LVH with secondary repolarization abnormality Anterior infarct, old Compared to ECG 01/08/2021 22:31:39 No significant change Electronically Signed On 01-12-2021 14:22:00 EDT by Marisa Paredes
--- NOTE | 2021-01-12 14:23 | Electrocardiograph Report ---
[facility] Test Date: 2021-01-12 Test Time: 02:38:36 Pat Name: FABIENNE ARMENDARIZ Department: Room: Gender: F Celluloid Trimmer: BAUDILIO : 1950 Requested By: MARIA DE JESUS JOYCE Order Number: [id number] Reading MD: Marisa Paredes Measurements Intervals [place] Rate: 69 P: 0 [place]: 200 QRS: -32 QRSD: 102 T: 46 QT: 456 QTc: 488 Interpretive Statements Sinus rhythm Probable left atrial enlargement Left ventricular hypertrophy Poor R wave progress Compared to ECG 01/08/2021 22:31:39 No significant change Electronically Signed On 01-12-2021 14:22:41 EDT by Marisa Paredes
[2021-01-12] MEDS ORDERED: TRAZODONE 50 MG PO SCH (22:00)
[2021-01-12] MEDS ORDERED: traZODone 50 MG TAB PO SCH (22:00)
== END 2021-01-12 08:58 | disposition home or self-care (01) ==
LOC: ED 20:08
DX: R07.89 Other chest pain (principal); M79.602 Pain in left arm; I10 Essential (primary) hypertension; E11.9 Type 2 diabetes mellitus without complications; J44.9 Chronic obstructive pulmonary disease, unspecified; Z98.890 Other specified postprocedural states; Z79.4 Long term (current) use of insulin; Z79.899 Other long term (current) drug therapy; Z88.0 Allergy status to penicillin; Z88.8 Allergy status to other drugs, medicaments and biological substances
CPT/HCPCS: 36415; 71046; 80053; 84484; 85025; 93005

== ENCOUNTER 2021-01-15 20:44 | Emergency (ER) | payer MEDICARE ==
--- NOTE | 2021-01-16 01:33 | Emergency Department Report ---
ED General Adult HPI - General Chief complaint: Hyperglycemia Stated complaint: HIGH BLOOD SUGAR Time Seen by Provider: 01/16/21 01:21 Source: patient, EMS Mode of arrival: Wheelchair Limitations: No Limitations - History of Present Illness Initial comments: Patient is 70 years old female with history of coronary artery disease, hypertension and diabetes. Patient presented to the ER stated that her blood sugar was high. Patient stated that he was checked approximately 6 hours ago and it was more than 500. Patient stated that she did not took her insulin because she does not have anything to eat. Patient stated that she is living in a boardinghouse and did not have any food to eat. Patient stated that she asked her son to borrow her $40 to get some food but he refused. She stated that she is waiting for her check to come on Saturday so she can buy food. Patient currently denying any chest pain, shortness of breath, abdominal pain, nausea or vomiting or diarrhea. No fevers or chills. - Related Data Previous Rx's Medication Instructions Recorded Last Taken Type Aspirin [Adult Aspirin] 81 mg PO QDAY #30 12/26/20 Unknown Rx AtorvaSTATin [Lipitor] 40 mg PO QHS #30 12/26/20 Unknown Rx Clopidogrel [Plavix] 75 mg PO QDAY #30 12/26/20 Unknown Rx Diabetic Supplies,Miscell [Cequr 1 each MC BID #1 miscell 12/26/20 Unknown Rx Simplicity Homebirth Midwife] Gabapentin 600 mg PO TID #90 cap 12/26/20 Unknown Rx Insulin NPH/Regular [Novolin 70/30] 100 unit SQ BIDDIAB #1 vial 12/26/20 Unknown Rx Levothyroxine [Synthroid] 50 mcg PO QDAY #30 12/26/20 Unknown Rx Metoprolol [Lopressor TAB] 25 mg PO QDAY #30 12/26/20 Unknown Rx Nicotine [Habitrol] 21 mg TD QDAY #14 patch 12/26/20 Unknown Rx amLODIPine 5 mg PO DAILY #30 12/26/20 Unknown Rx busPIRone [Buspar] 5 mg PO TID #90 12/26/20 Unknown Rx hydrALAZINE [Apresoline TAB] 25 mg PO TID #90 12/26/20 Unknown Rx traZODone [Desyrel] 150 mg PO QHS #90 12/26/20 Unknown Rx Albuterol Mdi (or & Nicu Only) 2 puff IH QID PRN #8.5 gram 01/05/21 Unknown Rx [ProAir HFA Inhaler] Allergies Allergy/AdvReac Type Severity Reaction Status Date / Time codeine Allergy Unknown Verified 01/12/21 07:38 Penicillins Allergy Unknown Verified 01/12/21 07:38 ED Review of Systems ROS: Stated complaint: HIGH BLOOD SUGAR Other details as noted in HPI Comment: All other systems reviewed and negative Constitutional: denies: chills, fever Respiratory: denies: cough, shortness of breath, SOB with exertion Cardiovascular: denies: chest pain Gastrointestinal: denies: abdominal pain, nausea, vomiting Musculoskeletal: denies: back pain Neurological: denies: headache, weakness, numbness, paresthesias, confusion ED Past Medical Hx - Past Medical History Previous Medical History?: Yes Hx Hypertension: Yes Hx Heart Attack/AMI: (stent x2) Hx Congestive Heart Failure: No Hx Diabetes: Yes Hx Asthma: Yes Hx COPD: Yes Additional medical history: Coronary artery disease, thyroid cancer - Surgical History Past Surgical History?: No Hx Coronary Stent: Yes (Stents x 2) Additional Surgical History: Partial Thyroid Removal due to Cancer - Social History Smoking Status: Never Smoker - Medications Home Medications: Home Medications Medication Instructions Recorded Confirmed Last Taken Type Aspirin [Adult Aspirin] 81 mg PO QDAY #30 12/26/20 Unknown Rx AtorvaSTATin [Lipitor] 40 mg PO QHS #30 12/26/20 Unknown Rx Clopidogrel [Plavix] 75 mg PO QDAY #30 12/26/20 Unknown Rx Diabetic Supplies,Miscell [Cequr 1 each MC BID #1 miscell 12/26/20 Unknown Rx Simplicity Homebirth Midwife] Gabapentin 600 mg PO TID #90 cap 12/26/20 Unknown Rx Insulin NPH/Regular [Novolin 70/30] 100 unit SQ BIDDIAB #1 vial 12/26/20 Unknown Rx Levothyroxine [Synthroid] 50 mcg PO QDAY #30 12/26/20 Unknown Rx Metoprolol [Lopressor TAB] 25 mg PO QDAY #30 12/26/20 Unknown Rx Nicotine [Habitrol] 21 mg TD QDAY #14 patch 12/26/20 Unknown Rx amLODIPine 5 mg PO DAILY #30 12/26/20 Unknown Rx busPIRone [Buspar] 5 mg PO TID #90 12/26/20 Unknown Rx hydrALAZINE [Apresoline TAB] 25 mg PO TID #90 12/26/20 Unknown Rx traZODone [Desyrel] 150 mg PO QHS #90 12/26/20 Unknown Rx Albuterol Mdi (or & Nicu Only) 2 puff IH QID PRN #8.5 gram 01/05/21 Unknown Rx [ProAir HFA Inhaler] ED Physical Exam - General Limitations: No Limitations General appearance: alert, in no apparent distress - Head Head exam: Present: atraumatic, normocephalic, normal inspection - Eye Eye exam: Present: normal appearance - Neck Neck exam: Present: normal inspection, full ROM. Absent: tenderness, meningismus - Respiratory Respiratory exam: Present: normal lung sounds bilaterally - Cardiovascular Cardiovascular Exam: Present: regular rate, normal rhythm, normal heart sounds - GI/Abdominal GI/Abdominal exam: Present: soft, normal bowel sounds. Absent: distended, tenderness, guarding, rebound, rigid, organomegaly, mass, bruit, pulsatile mass, hernia - Extremities Exam Extremities exam: Present: normal inspection, full ROM, normal capillary refill - Neurological Exam Neurological exam: Present: alert, oriented X3, CN II-XII intact. Absent: motor sensory deficit - Psychiatric Psychiatric exam: Present: normal mood. Absent: homicidal ideation, suicidal ideation - Skin Skin exam: Present: warm, dry, intact ED Course Vital Signs 01/15/21 01/16/21 01/16/21 21:12 02:24 04:00 Temperature 97.0 F L Pulse Rate 90 79 89 Respiratory 17 14 17 Rate Blood Pressure 175/77 Blood Pressure 175/76 150/72 [Left] O2 Sat by Pulse 97 100 98 Oximetry ED Medical Decision Making - Medical Decision Making Patient is 70 years old female with history of coronary artery disease, hypertension and diabetes. Patient presented to the ER stated that her blood sugar was high. Patient stated that he was checked approximately 6 hours ago and it was more than 500. Patient stated that she did not took her insulin because she does not have anything to eat. Patient stated that she is living in a boardinghouse and did not have any food to eat. Patient stated that she asked her son to borrow her $40 to get some food but he refused. She stated that she is waiting for her check to come on Saturday so she can buy food. Patient currently denying any chest pain, shortness of breath, abdominal pain, nausea or vomiting or diarrhea. No fevers or chills. Patient remained stable in the ER. Patient received insulin 7units blood glucose now is 230. I order sliding scale. Patient is a case management. Critical care attestation.: If time is entered above; I have spent that time in minutes in the direct care of this critically ill patient, excluding procedure time. ED Disposition Clinical Impression: Acute hyperglycemia, Lack of food in environment Disposition: DC-01 TO HOME OR SELFCARE Is pt being admited?: No Condition: Stable Instructions: Hyperglycemia, [id number] Referrals: PRIMARY CARE, [Primary Care Provider] - 3-5 Days
[2021-01-16] MEDS ORDERED: INSULIN REGULAR, HUMAN 100 UNITS/1 ML SUB-Q ONE (01:42)
[2021-01-16] MEDS ORDERED: DEXTROSE 50% IN WATER (25GM) 50 ML SYRINGE IV PRN (05:35)
[2021-01-16] MEDS ORDERED: INSULIN REGULAR, HUMAN 100 UNITS/1 ML SUB-Q SCH (07:30)
[2021-01-16 08:16] VITALS: BP 170/72
--- NOTE | 2021-01-16 10:22 | Event Note ---
Date: 01/16/21 Patient presented for hyperglycemia and lack of food. Patient's blood sugar is controlled. Case management has seen the patient and provided resources.
== END 2021-01-16 11:00 | disposition home or self-care (01) ==
LOC: ED 20:44
DX: E11.65 Type 2 diabetes mellitus with hyperglycemia (principal); I25.10 Atherosclerotic heart disease of native coronary artery without angina pectoris; I10 Essential (primary) hypertension; I25.2 Old myocardial infarction; J44.9 Chronic obstructive pulmonary disease, unspecified; Z59.4 Lack of adequate food; Z98.890 Other specified postprocedural states; Z79.899 Other long term (current) drug therapy; Z88.6 Allergy status to analgesic agent; Z88.0 Allergy status to penicillin
CPT/HCPCS: 71046; 82962; 94644; 96372; J1815

== ENCOUNTER 2021-01-22 08:20 | Emergency (ER) | payer MEDICARE ==
--- NOTE | 2021-01-22 08:36 | Emergency Department Report ---
HPI - General Chief Complaint: Fall Time Seen by Provider: 01/22/21 08:26 - HPI HPI: This is a 70-year-old female presents to the emergency department via EMS from home with complaint of a headache, back pain, right forearm pain after a fall yesterday around 1 PM. The patient says that she was trying to step up onto a porch when she fell backwards onto cement. She hit her head and her back. She denies any problems with bowel or bladder, numbness or paresthesias, focal weakness, vision change, slurred speech or any other neurological deficits. Patient has a past medical history of coronary artery disease with coronary stents, hypertension, diabetes, and previous thyroid cancer. She did not take anything or receive anything for symptoms prior to presentation. 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 - Social History Smoking Status: Never Smoker - Medications Home Medications: Home Medications Medication Instructions Recorded Confirmed Last Taken Type Aspirin [Adult Aspirin] 81 mg PO QDAY #30 12/26/20 Unknown Rx AtorvaSTATin [Lipitor] 40 mg PO QHS #30 12/26/20 Unknown Rx Clopidogrel [Plavix] 75 mg PO QDAY #30 12/26/20 Unknown Rx Diabetic Supplies,Miscell [Cequr 1 each MC BID #1 miscell 12/26/20 Unknown Rx Simplicity Exchange Teller] Gabapentin 600 mg PO TID #90 cap 12/26/20 Unknown Rx Insulin NPH/Regular [Novolin 70/30] 100 unit SQ BIDDIAB #1 vial 12/26/20 Unknown Rx Levothyroxine [Synthroid] 50 mcg PO QDAY #30 12/26/20 Unknown Rx Metoprolol [Lopressor TAB] 25 mg PO QDAY #30 12/26/20 Unknown Rx Nicotine [Habitrol] 21 mg TD QDAY #14 patch 12/26/20 Unknown Rx amLODIPine 5 mg PO DAILY #30 12/26/20 Unknown Rx busPIRone [Buspar] 5 mg PO TID #90 12/26/20 Unknown Rx hydrALAZINE [Apresoline TAB] 25 mg PO TID #90 12/26/20 Unknown Rx traZODone [Desyrel] 150 mg PO QHS #90 12/26/20 Unknown Rx Albuterol Mdi (or & Nicu Only) 2 puff IH QID PRN #8.5 gram 01/05/21 Unknown Rx [ProAir HFA Inhaler] ED Review of Systems ROS: Stated complaint: FALL Other details as noted in HPI Comment: All other systems reviewed and negative Constitutional: denies: chills, fever Eyes: denies: eye pain, vision change ENT: denies: ear pain, throat pain Respiratory: denies: cough, shortness of breath Cardiovascular: denies: chest pain, palpitations Gastrointestinal: denies: abdominal pain, vomiting Genitourinary: denies: dysuria, discharge Musculoskeletal: back pain, arthralgia, myalgia Skin: denies: rash, lesions Neurological: headache. denies: weakness, numbness, paresthesias Physical Exam - Physical Exam Physical Exam: GENERAL: The patient is well-developed well-nourished. HENT: Normocephalic. Atraumatic. Patient has moist mucous membranes. EYES: Extraocular motions are intact. NECK: Supple. Trachea is midline. There is both midline and bilateral paraspinal tenderness to palpation. CHEST/LUNGS: Clear to auscultation. There is no respiratory distress noted. HEART/CARDIOVASCULAR: Regular. There is no tachycardia. There is no murmur. ABDOMEN: Abdomen is soft, nontender. Patient has normal bowel sounds. There is no abdominal distention. SKIN: Skin is warm and dry. There is a skin tear to the distal dorsal right forearm. NEURO: The patient is awake, alert, and oriented. The patient is cooperative. The patient has no focal neurologic deficits. Normal speech. Cranial nerves II through XII grossly intact. MUSCULOSKELETAL: There is no tenderness or deformity. There is no limitation range of motion. BACK: There is both midline and bilateral paraspinal thoracic and lumbar tenderness to palpation. ED Medical Decision Making - EKG Data -: EKG Interpreted by Me EKG shows normal: sinus rhythm, axis (Left axis deviation), intervals (Prolonged WI interval), QRS complexes (Q waves to the anteroseptal and inferior leads, LVH), ST-T waves Rate: normal - EKG Data When compared to previous EKG there are: no significant change Interpretation: unchanged when compared t (01/12/21) - Radiology Data Radiology results: report reviewed, image reviewed interpreted by me: X-ray of the cervical, lumbar and thoracic spine do not show any fracture, subluxation, or any acute process. X-ray of the right forearm does not show any fracture, dislocation, or any acute process. X-ray of the pelvis does not show any fracture, dislocation, or any acute process. CT HEAD WITHOUT CONTRAST INDICATION / CLINICAL INFORMATION: Trauma, fall no LOC. TECHNIQUE: All CT scans at this location are performed using CT dose reduction for ALARA by means of automated exposure control. COMPARISON: CT dated 01/08/21 FINDINGS: HEMORRHAGE: None. EXTRA-AXIAL SPACES: Normal in size and morphology for the patient's age. VENTRICULAR SYSTEM: Normal in size and morphology for the patient's age. CEREBRAL PARENCHYMA: Scattered white matter hypodensities likely represent microangiopathy, unchanged. MIDLINE SHIFT / HERNIATION: None. CEREBELLUM / BRAINSTEM: No significant abnormality. ORBITS: Normal as visualized. SOFT TISSUES: Mild soft tissue swelling of the posterior left scalp. SKULL: No significant abnormality. PARANASAL SINUSES / MASTOID AIR CELLS: Normal as visualized. ADDITIONAL FINDINGS: None. IMPRESSION: 1. No acute intracranial abnormality. 2. Mild posterior left scalp soft tissue swelling. - Medical Decision Making This patient presents to the emergency department after having a fall while trying to step up on a curb. The patient fell backwards onto her back and hit her head. No loss of consciousness. On examination there is no focal, motor or sensory deficits and her cranial nerves are intact. The patient had a CT scan of the head without contrast that did not show any skull fracture, hemorrhage, or any other acute process. Patient had x-rays done of the cervical, thoracic and lumbar spine, pelvis, and the right forearm, and none of these imaging studies showed any fracture, dislocation, subluxation, or any acute processes. Patient has a history of diabetes and an Accu-Chek was done. Blood sugar came back at about 320. Low suspicion for diabetic ketoacidosis and the patient says that she has medication at home to take. Vital signs have been reassuring throughout her ED course including being afebrile. Patient be discharged home to follow-up with primary care and has also been given a referral for a local neurosurgeon, Dr. Moon, to follow-up regarding her back and her neck pains. She will return to the emergency department with any worsening of her symptoms or with any acute distress. Critical Care Time: No Critical care attestation.: If time is entered above; I have spent that time in minutes in the direct care of this critically ill patient, excluding procedure time. ED Disposition Clinical Impression: Hyperglycemia Fall Qualifiers: Encounter type: initial encounter Qualified Code(s): W19.XXXA - Unspecified fall, initial encounter Contusion of scalp Qualifiers: Encounter type: initial encounter Qualified Code(s): S00.03XA - Contusion of scalp, initial encounter Closed head injury Qualifiers: Encounter type: initial encounter Qualified Code(s): S09.90XA - Unspecified injury of head, initial encounter Skin tear of forearm without complication Qualifiers: Encounter type: initial encounter Laterality: right Qualified Code(s): S51.811A - Laceration without foreign body of right forearm, initial encounter Back pain Qualifiers: Back pain location: back pain in unspecified location Chronicity: unspecified Back pain laterality: bilateral Qualified Code(s): M54.9 - Dorsalgia, unspecified Disposition: DC-01 TO HOME OR SELFCARE Is pt being admited?: No Condition: Stable Instructions: Head Injury, Adult, Facial or Scalp Contusion, Acute Back Pain, Adult, Hyperglycemia, Fall Prevention in the Home, Adult Additional Instructions: Please follow-up with a primary care physician in the next few days. I have given you a referral for a local primary care physician, Dr. Oro, and a primary care clinic, [facility]. I have given you a referral for a local neurosurgeon, Dr. Moon, to follow-up regarding your neck and/or back pain after your fall. Take all medications as prescribed, especially your diabetes medications. Try to stay away from foods that are high in sugar, carbohydrates and starches. Keep a blood sugar log. Return to the emergency department with any worsening of your symptoms, new or concerning symptoms not addressed during this current emergency department visit, or with any acute distress. Referrals: MATI MOON II, MD [Staff Physician] - 2-3 Days ALISON ORO MD [Staff Physician] - 2-3 Days [facility] [Provider Group] - 2-3 Days Time of Disposition: 10:14
[2021-01-22] MEDS ORDERED: TETANUS,DIPH,PERTUSS(ACELL) VACCINE 0.5 ML SYRINGE IM ONE (10:08)
[2021-01-22] MEDS ORDERED: ACETAMINOPHEN 325 MG TAB PO ONE (10:09)
[2021-01-22 10:16] VITALS: BP 161/78
--- NOTE | 2021-01-26 10:59 | Electrocardiograph Report ---
[facility] Test Date: 2021-01-22 Test Time: 09:16:32 Pat Name: FABIENNE ARMENDARIZ Department: Room: Gender: F Sequins Slinger: VICTOR MANUEL : 1950 Requested By: CARYN TERRELL Order Number: [id number] Reading MD: Dante Sapp Measurements Intervals [place] Rate: 69 P: -7 MI: 245 QRS: -45 QRSD: 90 T: 40 QT: 436 QTc: 467 Interpretive Statements Sinus rhythm Prolonged MI interval Left anterior fascicular block Left ventricular hypertrophy Anterior infarct, old Compared to ECG 01/12/2021 02:38:36 First degree AV block now present No significant change noted. Electronically Signed On 01-26-2021 10:59:06 EDT by Dante Sapp
== END 2021-01-22 13:30 | disposition home or self-care (01) ==
LOC: ED 08:20
DX: S51.811A Laceration without foreign body of right forearm, initial encounter (principal); S09.90XA Unspecified injury of head, initial encounter; S00.03XA Contusion of scalp, initial encounter; E11.65 Type 2 diabetes mellitus with hyperglycemia; M54.9 Dorsalgia, unspecified; I10 Essential (primary) hypertension; I25.10 Atherosclerotic heart disease of native coronary artery without angina pectoris; J44.9 Chronic obstructive pulmonary disease, unspecified; Z98.890 Other specified postprocedural states; Z79.899 Other long term (current) drug therapy; Z88.6 Allergy status to analgesic agent; Z88.0 Allergy status to penicillin; W18.39XA Other fall on same level, initial encounter; Y93.89 Activity, other specified; Y92.89 Other specified places as the place of occurrence of the external cause; Y99.8 Other external cause status
CPT/HCPCS: 70450; 72040; 72070; 72100; 72170; 82962; 90471; 90715; 93005

== ENCOUNTER 2021-01-25 09:57 | Emergency (ER) | payer MEDICARE ==
[2021-01-25 10:55] VITALS: BP 128/108
[2021-01-25] MEDS ORDERED: HYDROcodone/ACETAMINOPHEN 5-325 MG TAB PO ONE (12:02)
--- NOTE | 2021-01-25 12:05 | XRay Report ---
BILATERAL HIPS WITH PELVIS 3 VIEWS INDICATION: hip pain after fall. COMPARISON: None. IMPRESSION: No acute osseous or soft tissue abnormality. Mild osteoarthritic changes are noted at the SI joints and hips bilaterally. Signer Name: Edu Antunez Jr, MD Signed: 01/25/2021 12:00 PM Workstation Name: [id number]
--- NOTE | 2021-01-25 12:06 | Emergency Department Report ---
HPI - General Chief Complaint: Fall Time Seen by Provider: 01/25/21 11:40 - HPI HPI: Room 34 Patient is a 70-year-old female present with a chief complaint of left hip pain after fall. Patient states yesterday while washing dishes when she lost her bal ance and fell backwards striking her left hip. Patient complains of pain left hip with movement. Patient denies loss of consciousness. 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 - Social History Smoking Status: Never Smoker Substance Use Type: None - Medications Home Medications: Home Medications Medication Instructions Recorded Confirmed Last Taken Type Aspirin [Adult Aspirin] 81 mg PO QDAY #30 12/26/20 Unknown Rx AtorvaSTATin [Lipitor] 40 mg PO QHS #30 12/26/20 Unknown Rx Clopidogrel [Plavix] 75 mg PO QDAY #30 12/26/20 Unknown Rx Diabetic Supplies,Miscell [Cequr 1 each MC BID #1 miscell 12/26/20 Unknown Rx Simplicity Pet Walker] Gabapentin 600 mg PO TID #90 cap 12/26/20 Unknown Rx Insulin NPH/Regular [Novolin 70/30] 100 unit SQ BIDDIAB #1 vial 12/26/20 Unknown Rx Levothyroxine [Synthroid] 50 mcg PO QDAY #30 12/26/20 Unknown Rx Metoprolol [Lopressor TAB] 25 mg PO QDAY #30 12/26/20 Unknown Rx Nicotine [Habitrol] 21 mg TD QDAY #14 patch 12/26/20 Unknown Rx amLODIPine 5 mg PO DAILY #30 12/26/20 Unknown Rx busPIRone [Buspar] 5 mg PO TID #90 12/26/20 Unknown Rx hydrALAZINE [Apresoline TAB] 25 mg PO TID #90 12/26/20 Unknown Rx traZODone [Desyrel] 150 mg PO QHS #90 12/26/20 Unknown Rx Albuterol Mdi (or & Nicu Only) 2 puff IH QID PRN #8.5 gram 01/05/21 Unknown Rx [ProAir HFA Inhaler] HYDROcodone/APAP 5-325 [[place] 1 - 2 each PO Q6HR PRN #10 tablet 01/25/21 Unknown Rx 5/325] Ibuprofen [Motrin 800 MG tab] 800 mg PO Q8HR PRN #20 tablet 01/25/21 Unknown Rx ED Review of Systems ROS: Stated complaint: LEFT HIP PAIN Other details as noted in HPI Constitutional: no symptoms reported Eyes: denies: eye pain ENT: denies: throat pain Respiratory: no symptoms reported Cardiovascular: denies: chest pain Endocrine: no symptoms reported Gastrointestinal: denies: abdominal pain Genitourinary: denies: dysuria Musculoskeletal: arthralgia. denies: back pain Neurological: denies: headache Physical Exam - Physical Exam Vital Signs: Vital Signs 01/25/21 10:50 Temperature 97.6 F Pulse Rate 71 Respiratory 16 Rate Blood Pressure 128/108 O2 Sat by Pulse 98 Oximetry Physical Exam: GENERAL: The patient is well-developed well-nourished female lying on stretcher not appearing to be in acute distress. [] HEENT: Normocephalic. Atraumatic. Extraocular motions are intact. Patient has moist mucous membranes. NECK: Supple. Trachea midline CHEST/LUNGS: There is no respiratory distress noted. HEART/CARDIOVASCULAR: Regular. There is no tachycardia. 2+ left DP SKIN: There is no diaphoresis. NEURO: The patient is awake, alert, and oriented. The patient is cooperative. The patient has no focal neurologic deficits. The patient has normal speech. GCS 15 MUSCULOSKELETAL: There is tenderness to palpation of the left hip ED Course Vital Signs 01/25/21 10:50 Temperature 97.6 F Pulse Rate 71 Respiratory 16 Rate Blood Pressure 128/108 O2 Sat by Pulse 98 Oximetry ED Medical Decision Making - Lab Data Result diagrams: 01/25/21 12:05 01/25/21 12:05 Laboratory Tests 01/25/21 01/25/21 12:05 12:05 WBC 7.9 RBC 4.30 Hgb 13.3 Hct 37.9 MCV 88 MCH 31 MCHC 35 H RDW 13.9 Plt Count 221 Lymph % (Auto) 16.2 [place] % (Auto) 6.4 Eos % (Auto) 3.4 Baso % (Auto) 0.8 Lymph # (Auto) 1.3 [place] # (Auto) 0.5 Eos # (Auto) 0.3 Baso # (Auto) 0.1 Seg Neutrophils % 73.2 H Seg Neutrophils # 5.8 Sodium 137 Potassium 4.4 Chloride 98.8 Carbon Dioxide 29 Anion Gap 14 BUN 18 H Creatinine 1.1 Estimated GFR 49 BUN/Creatinine Ratio 16 Glucose 347 H Calcium 9.2 - Radiology Data Radiology results: report reviewed (Left hip x-ray, CT left hip), image reviewed (Left hip x-ray, CT left hip) interpreted by me: Left hip x-ray-no acute fracture, no dislocation [facility] [address] [id number] Cat Scan Report Signed Patient: FABIENNE ARMENDARIZ MR#: [id number] 6 : 1950 Acct:[id number] Age/Sex: 70 / F ADM Date: 01/25/21 Loc: ED Attending Dr: Ordering Physician: ILEANA DENIS MD Date of Service: 01/25/21 Procedure(s): CT lower extremity LT wo con Accession Number(s): [id number] cc: ILEANA DENIS MD CT lower extremity LT wo con INDICATION: Left hip pain after fall. TECHNIQUE: All CT scans at this location are performed using CT dose reduction for ALARA by means of automated exposure control. COMPARISON: Left hip x-ray 01/25/2021 FINDINGS: Moderate chondrocalcinosis is seen within the left hip with moderate CPPD arthropathy. No fracture or dislocation is seen within the left hip or hemipelvis. Chondrocalcinosis is seen within both proximal hamstring tendons. IMPRESSION: 1. Moderate CPPD arthropathy left hip. No fracture Signer Name: Jem Khanna MD Signed: 01/25/2021 12:41 PM Workstation Name: [id number] Transcribed By: TL Dictated By: Jem Khanna MD Electronically Authenticated By: Jem Khanna MD Signed Date/Time: 01/25/21 1241 DD/ 1239 TD/TT: Print Cancel - Differential Diagnosis Hip contusion, hip fracture, rami fracture, Critical care attestation.: If time is entered above; I have spent that time in minutes in the direct care of this critically ill patient, excluding procedure time. ED Disposition Clinical Impression: Contusion of left hip Disposition: DC-01 TO HOME OR SELFCARE Is pt being admited?: No Does the pt Need Aspirin: No Condition: Stable Instructions: Contusion, [id number] Additional Instructions: Return to the emergency department should you develop worsening symptoms, inab ility to tolerate food or liquids, high fever or any other concerns Prescriptions: Ibuprofen [Motrin 800 MG tab] 800 mg PO Q8HR PRN #20 tablet PRN Reason: Pain, Moderate (4-6) HYDROcodone/APAP 5-325 [[place] 5/325] 1 - 2 each PO Q6HR PRN #10 tablet PRN Reason: Pain Referrals: PRIMARY CAREMD [Primary Care Provider] - 3-5 Days MELLISSA BRITT MD [Staff Physician] - 3-5 Days (Dr. Britt is an orthopedic surgeon. Please follow-up with him for further evaluation) Time of Disposition: 12:56
[2021-01-25 12:23] LABS: Basophils # (Auto) 0.1 K/mm3 (0.0-0.1); Basophils % (Auto) 0.8 % (0.0-1.8); Eosinophils # (Auto) 0.3 K/mm3 (0.0-0.4); Eosinophils % (Auto) 3.4 % (0.0-4.3); Hematocrit 37.9 % (30.3-42.9); Hemoglobin 13.3 gm/dl (10.1-14.3); Lymphocytes # (Auto) 1.3 K/mm3 (1.2-5.4); Lymphocytes % (Auto) 16.2 % (13.4-35.0); Mean Corpuscular HGB Conc 35 % (30-34); Mean Corpuscular Volume 88 fl (79-97); Monocytes # (Auto) 0.5 K/mm3 (0.0-0.8); Monocytes % (Auto) 6.4 % (0.0-7.3); Platelet Count 221 K/mm3 (140-440); Red Cell Distribution Width 13.9 % (13.2-15.2)
[2021-01-25 12:44] LABS: Calcium 9.2 mg/dL (8.4-10.2)
--- NOTE | 2021-01-25 12:45 | Cat Scan Report ---
CT lower extremity LT wo con INDICATION: Left hip pain after fall. TECHNIQUE: All CT scans at this location are performed using CT dose reduction for ALARA by means of automated e xposure control. COMPARISON: Left hip x-ray 01/25/2021 FINDINGS: Moderate chondrocalcinosis is seen within the left hip with moderate CPPD arthropathy. No fracture or dislocation is seen within the left hip or hemipelvis. Chondrocalcinosis is seen within both proximal hamstring tendons. IMPRESSION: 1. Moderate CPPD arthropathy left hip. No fracture Signer Name: Jem Khanna MD Signed: 01/25/2021 12:41 PM Workstation Name: [id number]
== END 2021-01-25 14:18 | disposition home or self-care (01) ==
LOC: ED 09:57
DX: S70.02XA Contusion of left hip, initial encounter (principal); I10 Essential (primary) hypertension; I25.2 Old myocardial infarction; E11.9 Type 2 diabetes mellitus without complications; J44.9 Chronic obstructive pulmonary disease, unspecified; Z98.890 Other specified postprocedural states; Z79.4 Long term (current) use of insulin; Z79.899 Other long term (current) drug therapy; Z88.0 Allergy status to penicillin; Z88.8 Allergy status to other drugs, medicaments and biological substances; W01.0XXA Fall on same level from slipping, tripping and stumbling without subsequent striking against object, initial encounter; Y93.89 Activity, other specified; Y92.89 Other specified places as the place of occurrence of the external cause; Y99.8 Other external cause status
CPT/HCPCS: 36415; 73521; 80048; 85025

== ENCOUNTER 2021-01-27 15:30 | Emergency (ER) | payer MEDICARE ==
[2021-01-27 16:47] LABS: Basophils % (Auto) 0.5 % (0.0-1.8); Eosinophils # (Auto) 0.2 K/mm3 (0.0-0.4); Eosinophils % (Auto) 3.3 % (0.0-4.3); Hematocrit 38.5 % (30.3-42.9); Hemoglobin 12.9 gm/dl (10.1-14.3); Lymphocytes # (Auto) 1.5 K/mm3 (1.2-5.4); Lymphocytes % (Auto) 20.4 % (13.4-35.0); Mean Corpuscular HGB Conc 33 % (30-34); Mean Corpuscular Volume 89 fl (79-97); Monocytes # (Auto) 0.5 K/mm3 (0.0-0.8); Monocytes % (Auto) 6.5 % (0.0-7.3); Platelet Count 246 K/mm3 (140-440); Red Blood Count 4.33 M/mm3 (3.65-5.03); Red Cell Distribution Width 13.8 % (13.2-15.2)
[2021-01-27 16:59] LABS: Albumin 3.4 g/dL (3.9-5); Calcium 8.6 mg/dL (8.4-10.2)
[2021-01-27] MEDS ORDERED: MORPHINE 4 MG/1 ML INJ IV ONE (17:23)
[2021-01-27] MEDS ORDERED: ONDANSETRON 4 MG/2 ML INJ IV ONE (17:23)
--- NOTE | 2021-01-27 17:34 | Emergency Department Report ---
ED General Adult HPI - General Chief complaint: Abdominal Pain Stated complaint: ABDOMINAL PAIN Time Seen by Provider: 01/27/21 17:11 Source: patient Mode of arrival: Wheelchair Limitations: No Limitations - History of Present Illness Initial comments: Patient presents to the emergency department the chief complaint of left lower quadrant and left flank pain that started 3 days ago. Patient states she has a history of kidney stones and this feels very similar to prior episodes. Patient states she has a history of a lithotripsy approximately 15 years ago. Patient also states she has had appendectomy hysterectomy. Patient also complains that she has not had a real bowel movement in 3 weeks. Patient does endorse passing gas. She denies any vomiting. -: Sudden, days(s) (3) Location: abdomen Radiation: non-radiation Severity scale (0 -10): 5 Quality: aching Consistency: constant Improves with: none Worsens with: none Associated Symptoms: denies other symptoms Treatments Prior to Arrival: none - Related Data Previous Rx's Medication Instructions Recorded Last Taken Type Aspirin [Adult Aspirin] 81 mg PO QDAY #30 12/26/20 Unknown Rx AtorvaSTATin [Lipitor] 40 mg PO QHS #30 12/26/20 Unknown Rx Clopidogrel [Plavix] 75 mg PO QDAY #30 12/26/20 Unknown Rx Diabetic Supplies,Miscell [Cequr 1 each MC BID #1 miscell 12/26/20 Unknown Rx Sim[employer]] Gabapentin 600 mg PO TID #90 cap 12/26/20 Unknown Rx Insulin NPH/Regular [Novolin 70/30] 100 unit SQ BIDDIAB #1 vial 12/26/20 Unknown Rx Levothyroxine [Synthroid] 50 mcg PO QDAY #30 12/26/20 Unknown Rx Metoprolol [Lopressor TAB] 25 mg PO QDAY #30 12/26/20 Unknown Rx Nicotine [Habitrol] 21 mg TD QDAY #14 patch 12/26/20 Unknown Rx amLODIPine 5 mg PO DAILY #30 12/26/20 Unknown Rx busPIRone [Buspar] 5 mg PO TID #90 12/26/20 Unknown Rx hydrALAZINE [Apresoline TAB] 25 mg PO TID #90 12/26/20 Unknown Rx traZODone [Desyrel] 150 mg PO QHS #90 12/26/20 Unknown Rx Albuterol Mdi (or & Nicu Only) 2 puff IH QID PRN #8.5 gram 01/05/21 Unknown Rx [ProAir HFA Inhaler] HYDROcodone/APAP 5-325 [[place] 1 - 2 each PO Q6HR PRN #10 tablet 01/25/21 Unknown Rx 5/325] Ibuprofen [Motrin 800 MG tab] 800 mg PO Q8HR PRN #20 tablet 01/25/21 Unknown Rx HYDROcodone/APAP 7.5-325 [[place] 1 each PO Q6HR PRN #15 tablet 01/27/21 Unknown Rx 7.5/325] Ondansetron [Zofran Odt] 4 mg PO Q6HR PRN #20 tab.rapdis 01/27/21 Unknown Rx Sennosides/Docusate Sodium [Senna 1 each PO QHS #12 tablet 01/27/21 Unknown Rx Plus 8.6-50 mg Tablet] Allergies Allergy/AdvReac Type Severity Reaction Status Date / Time codeine Allergy Unknown Verified 01/27/21 15:36 Penicillins Allergy Unknown Verified 01/27/21 15:36 ED Review of Systems ROS: Stated complaint: ABDOMINAL PAIN Other details as noted in HPI Comment: All other systems reviewed and negative Constitutional: denies: chills, fever Eyes: denies: eye pain, eye discharge, vision change ENT: denies: ear pain, throat pain Respiratory: denies: cough, shortness of breath, wheezing Cardiovascular: denies: chest pain, palpitations Endocrine: no symptoms reported Gastrointestinal: abdominal pain. denies: nausea, diarrhea Genitourinary: denies: urgency, dysuria, discharge Musculoskeletal: denies: back pain, joint swelling, arthralgia Skin: denies: rash, lesions Neurological: denies: headache, weakness, paresthesias Psychiatric: denies: anxiety, depression Hematological/Lymphatic: denies: easy bleeding, easy bruising ED Past Medical Hx - Past Medical History Hx Hypertension: Yes Hx Heart Attack/AMI: (stent x2) Hx Congestive Heart Failure: No Hx Diabetes: Yes Hx Asthma: Yes Hx COPD: Yes Additional medical history: Coronary artery disease, thyroid cancer - Surgical History Hx Coronary Stent: Yes (Stents x 2) Additional Surgical History: Partial Thyroid Removal due to Cancer - Social History Smoking Status: Never Smoker Substance Use Type: None - Medications Home Medications: Home Medications Medication Instructions Recorded Confirmed Last Taken Type Aspirin [Adult Aspirin] 81 mg PO QDAY #30 12/26/20 Unknown Rx AtorvaSTATin [Lipitor] 40 mg PO QHS #30 12/26/20 Unknown Rx Clopidogrel [Plavix] 75 mg PO QDAY #30 12/26/20 Unknown Rx Diabetic Supplies,Miscell [Cequr 1 each MC BID #1 miscell 12/26/20 Unknown Rx [employer]] Gabapentin 600 mg PO TID #90 cap 12/26/20 Unknown Rx Insulin NPH/Regular [Novolin 70/30] 100 unit SQ BIDDIAB #1 vial 12/26/20 Unknown Rx Levothyroxine [Synthroid] 50 mcg PO QDAY #30 12/26/20 Unknown Rx Metoprolol [Lopressor TAB] 25 mg PO QDAY #30 12/26/20 Unknown Rx Nicotine [Habitrol] 21 mg TD QDAY #14 patch 12/26/20 Unknown Rx amLODIPine 5 mg PO DAILY #30 12/26/20 Unknown Rx busPIRone [Buspar] 5 mg PO TID #90 12/26/20 Unknown Rx hydrALAZINE [Apresoline TAB] 25 mg PO TID #90 12/26/20 Unknown Rx traZODone [Desyrel] 150 mg PO QHS #90 12/26/20 Unknown Rx Albuterol Mdi (or & Nicu Only) 2 puff IH QID PRN #8.5 gram 01/05/21 Unknown Rx [ProAir HFA Inhaler] HYDROcodone/APAP 5-325 [[place] 1 - 2 each PO Q6HR PRN #10 tablet 01/25/21 Unknown Rx 5/325] Ibuprofen [Motrin 800 MG tab] 800 mg PO Q8HR PRN #20 tablet 01/25/21 Unknown Rx HYDROcodone/APAP 7.5-325 [[place] 1 each PO Q6HR PRN #15 tablet 01/27/21 Unknown Rx 7.5/325] Ondansetron [Zofran Odt] 4 mg PO Q6HR PRN #20 tab.rapdis 01/27/21 Unknown Rx Sennosides/Docusate Sodium [Senna 1 each PO QHS #12 tablet 01/27/21 Unknown Rx Plus 8.6-50 mg Tablet] ED Physical Exam - General Limitations: No Limitations General appearance: alert, in no apparent distress - Head Head exam: Present: atraumatic, normocephalic - Eye Eye exam: Present: normal appearance, PERRL, EOMI - ENT ENT exam: Present: mucous membranes moist - Neck Neck exam: Present: normal inspection - Respiratory Respiratory exam: Present: normal lung sounds bilaterally. Absent: respiratory distress - Cardiovascular Cardiovascular Exam: Present: regular rate, normal rhythm. Absent: systolic murmur, diastolic murmur, rubs, gallop - GI/Abdominal GI/Abdominal exam: Present: soft, normal bowel sounds. Absent: distended, tenderness - Extremities Exam Extremities exam: Present: normal inspection - Back Exam Back exam: Present: normal inspection - Neurological Exam Neurological exam: Present: alert, oriented X3, CN II-XII intact. Absent: motor sensory deficit - Psychiatric Psychiatric exam: Present: normal affect, normal mood - Skin Skin exam: Present: warm, dry, intact, normal color. Absent: rash ED Course Vital Signs 01/27/21 01/27/21 01/27/21 15:40 17:57 19:30 Pulse Rate 77 76 84 Respiratory 15 12 Rate Blood Pressure 152/72 [Left] O2 Sat by Pulse 99 96 98 Oximetry 01/27/21 21:00 Pulse Rate 87 Respiratory 16 Rate Blood Pressure 120/61 [Left] O2 Sat by Pulse 98 Oximetry ED Medical Decision Making - Lab Data Result diagrams: 01/27/21 15:48 01/27/21 15:48 Lab Results 01/27/21 01/27/21 01/27/21 Range/Units 15:48 15:48 15:48 WBC 7.5 (4.5-11.0) K/mm3 RBC 4.33 (3.65-5.03) M/mm3 Hgb 12.9 (10.1-14.3) gm/dl Hct 38.5 (30.3-42.9) % MCV 89 (79-97) fl MCH 30 (28-32) pg MCHC 33 (30-34) % RDW 13.8 (13.2-15.2) % Plt Count 246 (140-440) K/mm3 Lymph % (Auto) 20.4 (13.4-35.0) % Will % (Auto) 6.5 (0.0-7.3) % Eos % (Auto) 3.3 (0.0-4.3) % Baso % (Auto) 0.5 (0.0-1.8) % Lymph # (Auto) 1.5 (1.2-5.4) K/mm3 Will # (Auto) 0.5 (0.0-0.8) K/mm3 Eos # (Auto) 0.2 (0.0-0.4) K/mm3 Baso # (Auto) 0.0 (0.0-0.1) K/mm3 Seg Neutrophils % 69.3 (40.0-70.0) % Seg Neutrophils # 5.2 (1.8-7.7) K/mm3 Sodium 134 L (137-145) mmol/L Potassium 4.9 (3.6-5.0) mmol/L Chloride 97.2 L (98-107) mmol/L Carbon Dioxide 26 (22-30) mmol/L Anion Gap 16 mmol/L BUN 16 (7-17) mg/dL Creatinine 1.2 (0.6-1.2) mg/dL Estimated GFR 45 ml/min BUN/Creatinine Ratio 13 % Glucose 461 H (65-100) mg/dL POC Glucose (70-105) mg/dL Calcium 8.6 (8.4-10.2) mg/dL Total Bilirubin 0.30 (0.1-1.2) mg/dL AST 10 (5-40) units/L ALT 5 L (7-56) units/L Alkaline Phosphatase 108 (35-129) units/L Total Protein 6.1 L (6.3-8.2) g/dL Albumin 3.4 L (3.9-5) g/dL Albumin/Globulin Ratio 1.3 % Lipase 23 (13-60) units/L Urine Color (Yellow) Urine Turbidity (Clear) Urine pH (5.0-7.0) Ur Specific [place] (1.003-1.030) Urine Protein (Negative) mg/dL Urine Glucose (UA) (Negative) mg/dL Urine Ketones (Negative) mg/dL Urine Blood (Negative) Urine Nitrite (Negative) Urine Bilirubin (Negative) Urine Urobilinogen (<2.0) mg/dL Ur Leukocyte Esterase (Negative) Urine WBC (Auto) (0.0-6.0) /HPF Urine RBC (Auto) (0.0-6.0) /HPF U Epithel Cells (Auto) (0-13.0) /HPF Urine Bacteria (Auto) (Negative) /HPF Urine Mucus /HPF Urine Yeast (Budding) /HPF 01/27/21 01/27/21 01/27/21 Range/Units 19:49 21:08 Unknown WBC (4.5-11.0) K/mm3 RBC (3.65-5.03) M/mm3 Hgb (10.1-14.3) gm/dl Hct (30.3-42.9) % MCV (79-97) fl MCH (28-32) pg MCHC (30-34) % RDW (13.2-15.2) % Plt Count (140-440) K/mm3 Lymph % (Auto) (13.4-35.0) % Will % (Auto) (0.0-7.3) % Eos % (Auto) (0.0-4.3) % Baso % (Auto) (0.0-1.8) % Lymph # (Auto) (1.2-5.4) K/mm3 Will # (Auto) (0.0-0.8) K/mm3 Eos # (Auto) (0.0-0.4) K/mm3 Baso # (Auto) (0.0-0.1) K/mm3 Seg Neutrophils % (40.0-70.0) % Seg Neutrophils # (1.8-7.7) K/mm3 Sodium (137-145) mmol/L Potassium (3.6-5.0) mmol/L Chloride (98-107) mmol/L Carbon Dioxide (22-30) mmol/L Anion Gap mmol/L BUN (7-17) mg/dL Creatinine (0.6-1.2) mg/dL Estimated GFR ml/min BUN/Creatinine Ratio % Glucose (65-100) mg/dL POC Glucose 495 H 300 H (70-105) mg/dL Calcium (8.4-10.2) mg/dL Total Bilirubin (0.1-1.2) mg/dL AST (5-40) units/L ALT (7-56) units/L Alkaline Phosphatase (35-129) units/L Total Protein (6.3-8.2) g/dL Albumin (3.9-5) g/dL Albumin/Globulin Ratio % Lipase (13-60) units/L Urine Color Yellow (Yellow) Urine Turbidity Slightly-cloudy (Clear) Urine pH 5.0 (5.0-7.0) Ur Specific [place] 1.021 (1.003-1.030) Urine Protein 100 mg/dl (Negative) mg/dL Urine Glucose (UA) >=500 (Negative) mg/dL Urine Ketones Neg (Negative) mg/dL Urine Blood Sm (Negative) Urine Nitrite Pos (Negative) Urine Bilirubin Neg (Negative) Urine Urobilinogen < 2.0 (<2.0) mg/dL Ur Leukocyte Esterase Mod (Negative) Urine WBC (Auto) 170.0 H (0.0-6.0) /HPF Urine RBC (Auto) 6.0 (0.0-6.0) /HPF U Epithel Cells (Auto) 2.0 (0-13.0) /HPF Urine Bacteria (Auto) 1+ (Negative) /HPF Urine Mucus Few /HPF Urine Yeast (Budding) Few /HPF - Radiology Data Radiology results: report reviewed - Medical Decision Making Patient given IV insulin for her elevated glucose levels Discussed results with patient Critical Care Time: Yes Critical care time in (mins) excluding proc time.: 35 Critical care attestation.: If time is entered above; I have spent that time in minutes in the direct care of this critically ill patient, excluding procedure time. ED Disposition Clinical Impression: Hyperglycemia, Hyperglycemia due to diabetes mellitus, Ureterolithiasis Disposition: DC-01 TO HOME OR SELFCARE Is pt being admited?: No Does the pt Need Aspirin: No Condition: Stable Instructions: Abdominal Pain (ED), Diabetes Mellitus Type 2 in Adults (ED), Hyperglycemia, Type 2 Diabetes Mellitus, Self Care, Adult, [id number], Type 2 Diabetes Mellitus, Self Care, Adult Additional Instructions: return if worse Prescriptions: Sennosides/Docusate Sodium [Senna Plus 8.6-50 mg Tablet] 1 each PO QHS #12 tablet HYDROcodone/APAP 7.5-325 [[place] 7.5/325] 1 each PO Q6HR PRN #15 tablet PRN Reason: Pain Ondansetron [Zofran Odt] 4 mg PO Q6HR PRN #20 tab.rapdis PRN Reason: Nausea Referrals: PRIMARY CARE, [Primary Care Provider] - 3-5 Days HERACLIO HARRIS MD [Staff Physician] - 3-5 Days Time of Disposition: 21:55
[2021-01-27 18:53] LABS: Bacteria,Urine 1+ /HPF (Negative); Bilirubin,Urine NEG (Negative); Blood,Urine SM (Negative); Color,Urine Yellow (Yellow); Mucus,Urine FEW /HPF; Urobilinogen,Urine < 2.0 mg/dL (<2.0)
--- NOTE | 2021-01-27 18:55 | Cat Scan Report ---
CT OF THE ABDOMEN AND PELVIS WITHOUT CONTRAST INDICATION / CLINICAL INFORMATION: Left flank pain and history of stones. TECHNIQUE: All CT scans at this location are performed using CT dose reduction for ALARA by means of automated exposure control. COMPARISON: None available. FINDINGS: ABDOMEN: There is a 2 mm nonobstructive calculus in the right mid kidney. No other renal calculi are seen. There is no evidence of hydronephrosis, perinephric soft tissue stranding or renal mass. The gallbladder is surgically absent. There are multiple small calcified granulomata scattered throug hout the liver and spleen. The bile ducts, pancreas, adrenal glands and bowel demonstrate no signific ant abnormality. No adenopathy is present. The lung bases are unremarkable. There is moderate coronar y artery calcification. PELVIS: The distal ureters and urinary bladder are normal. The uterus is not identified. There is no evidence of adnexal mass or free fluid. The appendix is not seen and there is no evidence of divertic ulitis. I do not identify a hernia. There is mild spondylosis. IMPRESSION: 1. Tiny nonobstructive right renal calculus. No evidence of ureteral calculus or hydronephrosis. 2. No acute intra-abdominal disease is identified. Signer Name: Ede Montes MD Signed: 01/27/2021 6:50 PM Workstation Name: [id number]
[2021-01-27] MEDS ORDERED: INSULIN REGULAR, HUMAN 100 UNITS/1 ML IV ONE (19:59)
[2021-01-27] MEDS ORDERED: HYDROcodone/ACETAMINOPHEN 10-325MG TAB PO ONE (21:09)
[2021-01-27 21:21] VITALS: BP 120/61
== END 2021-01-27 22:17 | disposition home or self-care (01) ==
LOC: ED 15:30
DX: E11.65 Type 2 diabetes mellitus with hyperglycemia (principal); N20.1 Calculus of ureter; I10 Essential (primary) hypertension; J44.9 Chronic obstructive pulmonary disease, unspecified; Z98.890 Other specified postprocedural states; Z79.1 Long term (current) use of non-steroidal anti-inflammatories (NSAID); Z79.899 Other long term (current) drug therapy; Z88.0 Allergy status to penicillin; Z88.8 Allergy status to other drugs, medicaments and biological substances
CPT/HCPCS: 36415; 74176; 80053; 81001; 82962; 83690; 85025; 96374; 96375; 99284; J2270; J2405; J1815

== ENCOUNTER 2021-01-29 12:47 | Emergency (ER) | payer MEDICARE ==
[2021-01-29 13:15] VITALS: BP 159/79
[2021-01-29] MEDS ORDERED: MORPHINE 4 MG/1 ML INJ IV ONE (14:38)
[2021-01-29] MEDS ORDERED: ONDANSETRON 4 MG/2 ML INJ IV ONE (14:38)
[2021-01-29] MEDS ORDERED: SODIUM CHLORIDE 0.9% 1000 ML 1,000 ML IV ONE (14:38)
[2021-01-29 15:34] LABS: Basophils # (Auto) 0.1 K/mm3 (0.0-0.1); Eosinophils # (Auto) 0.1 K/mm3 (0.0-0.4); Eosinophils % (Auto) 2.2 % (0.0-4.3); Hemoglobin 13.3 gm/dl (10.1-14.3); Lymphocytes # (Auto) 1.4 K/mm3 (1.2-5.4); Lymphocytes % (Auto) 20.6 % (13.4-35.0); Mean Corpuscular HGB Conc 33 % (30-34); Mean Corpuscular Volume 89 fl (79-97); Monocytes # (Auto) 0.4 K/mm3 (0.0-0.8); Monocytes % (Auto) 6.3 % (0.0-7.3); Platelet Count 271 K/mm3 (140-440); Red Blood Count 4.48 M/mm3 (3.65-5.03); Red Cell Distribution Width 13.6 % (13.2-15.2)
[2021-01-29 15:53] LABS: Albumin 3.7 g/dL (3.9-5)
[2021-01-29] MEDS ORDERED: INSULIN REGULAR, HUMAN 100 UNITS/1 ML IV ONE (16:21)
[2021-01-29 16:46] LABS: Bacteria,Urine 1+ /HPF (Negative); Bilirubin,Urine NEG (Negative); Blood,Urine SM (Negative); Color,Urine Yellow (Yellow); Urobilinogen,Urine < 2.0 mg/dL (<2.0)
--- NOTE | 2021-01-29 17:21 | Emergency Department Report ---
ED Female HPI - General Chief complaint: Urogenital-Female Stated complaint: KIDNEY STONES/SEEN HERE YESTERDAY Time Seen by Provider: 01/29/21 14:22 Source: patient Mode of arrival: Wheelchair Limitations: No Limitations - History of Present Illness Initial comments: This is a 70-year-old female nontoxic, well nourished in appearance, no acute signs of distress presents to the ED with c/o of left flank pain x2 days. Patient stated she was seen yesterday and was diagnosed with kidney stone and UTI. Patient stated did not take her antibiotics or medication because she was not able to fill them. Patient otherwise denies any other symptoms or co nditions. Denies any bladder or bowel instability. Patient denies any urinary symptoms. Denies any fever, chills, nausea, vomiting, headache, stiff neck, chest pain or shortness of breath. Patient denies any numbness or tingling. Patient stated allergies to codeine and penicillin. -: days(s) Severity: mild Severity scale (0 -10): 8 Quality: aching Consistency: constant Improves with: none Worsens with: urination Associated Symptoms: other (Left flank pain). denies: vaginal discharge, vagin al bleeding, abdominal pain, nausea/vomiting, fever/chills, headaches, loss of appetite, dysuria, hematuria, rash, seizure, shortness of breath, syncope, weakness - Related Data Previous Rx's Medication Instructions Recorded Last Taken Type Aspirin [Adult Aspirin] 81 mg PO QDAY #30 12/26/20 Unknown Rx AtorvaSTATin [Lipitor] 40 mg PO QHS #30 12/26/20 Unknown Rx Clopidogrel [Plavix] 75 mg PO QDAY #30 12/26/20 Unknown Rx Diabetic Supplies,Miscell [Cequr 1 each MC BID #1 miscell 12/26/20 Unknown Rx Simplicity President] Gabapentin 600 mg PO TID #90 cap 12/26/20 Unknown Rx Insulin NPH/Regular [Novolin 70/30] 100 unit SQ BIDDIAB #1 vial 12/26/20 Unknown Rx Levothyroxine [Synthroid] 50 mcg PO QDAY #30 12/26/20 Unknown Rx Metoprolol [Lopressor TAB] 25 mg PO QDAY #30 12/26/20 Unknown Rx Nicotine [Habitrol] 21 mg TD QDAY #14 patch 12/26/20 Unknown Rx amLODIPine 5 mg PO DAILY #30 12/26/20 Unknown Rx busPIRone [Buspar] 5 mg PO TID #90 12/26/20 Unknown Rx hydrALAZINE [Apresoline TAB] 25 mg PO TID #90 12/26/20 Unknown Rx traZODone [Desyrel] 150 mg PO QHS #90 12/26/20 Unknown Rx Albuterol Mdi (or & Nicu Only) 2 puff IH QID PRN #8.5 gram 01/05/21 Unknown Rx [ProAir HFA Inhaler] HYDROcodone/APAP 5-325 [[place] 1 - 2 each PO Q6HR PRN #10 tablet 01/25/21 Unknown Rx 5/325] Ibuprofen [Motrin 800 MG tab] 800 mg PO Q8HR PRN #20 tablet 01/25/21 Unknown Rx HYDROcodone/APAP 7.5-325 [[place] 1 each PO Q6HR PRN #15 tablet 01/27/21 Unknown Rx 7.5/325] Ondansetron [Zofran Odt] 4 mg PO Q6HR PRN #20 tab.rapdis 01/27/21 Unknown Rx Sennosides/Docusate Sodium [Senna 1 each PO QHS #12 tablet 01/27/21 Unknown Rx Plus 8.6-50 mg Tablet] Ciprofloxacin HCl 500 mg PO Q12H #14 tablet 01/29/21 Unknown Rx Allergies Allergy/AdvReac Type Severity Reaction Status Date / Time codeine Allergy Unknown Verified 01/29/21 13:10 Penicillins Allergy Unknown Verified 01/29/21 13:10 ED Review of Systems ROS: Stated complaint: KIDNEY STONES/SEEN HERE YESTERDAY Other details as noted in HPI Comment: All other systems reviewed and negative Constitutional: denies: chills, fever Eyes: denies: eye pain, eye discharge, vision change ENT: denies: ear pain, throat pain Respiratory: denies: cough, shortness of breath, wheezing Cardiovascular: denies: chest pain, palpitations Endocrine: no symptoms reported Gastrointestinal: denies: abdominal pain, nausea, diarrhea Genitourinary: denies: urgency, dysuria, discharge Musculoskeletal: denies: back pain, joint swelling, arthralgia Skin: denies: rash, lesions Neurological: denies: headache, weakness, paresthesias Psychiatric: denies: anxiety, depression Hematological/Lymphatic: denies: easy bleeding, easy bruising ED Past Medical Hx - Past Medical History Hx Hypertension: Yes Hx Heart Attack/AMI: (stent x2) Hx Congestive Heart Failure: No Hx Diabetes: Yes Hx Asthma: Yes Hx COPD: Yes Additional medical history: Coronary artery disease, thyroid cancer - Surgical History Hx Coronary Stent: Yes (Stents x 2) Additional Surgical History: Partial Thyroid Removal due to Cancer - Social History Smoking Status: Never Smoker Substance Use Type: None - Medications Home Medications: Home Medications Medication Instructions Recorded Confirmed Last Taken Type Aspirin [Adult Aspirin] 81 mg PO QDAY #30 12/26/20 Unknown Rx AtorvaSTATin [Lipitor] 40 mg PO QHS #30 12/26/20 Unknown Rx Clopidogrel [Plavix] 75 mg PO QDAY #30 12/26/20 Unknown Rx Diabetic Supplies,Miscell [Cequr 1 each MC BID #1 miscell 12/26/20 Unknown Rx Simplicity President] Gabapentin 600 mg PO TID #90 cap 12/26/20 Unknown Rx Insulin NPH/Regular [Novolin 70/30] 100 unit SQ BIDDIAB #1 vial 12/26/20 Unknown Rx Levothyroxine [Synthroid] 50 mcg PO QDAY #30 12/26/20 Unknown Rx Metoprolol [Lopressor TAB] 25 mg PO QDAY #30 12/26/20 Unknown Rx Nicotine [Habitrol] 21 mg TD QDAY #14 patch 12/26/20 Unknown Rx amLODIPine 5 mg PO DAILY #30 12/26/20 Unknown Rx busPIRone [Buspar] 5 mg PO TID #90 12/26/20 Unknown Rx hydrALAZINE [Apresoline TAB] 25 mg PO TID #90 12/26/20 Unknown Rx traZODone [Desyrel] 150 mg PO QHS #90 12/26/20 Unknown Rx Albuterol Mdi (or & Nicu Only) 2 puff IH QID PRN #8.5 gram 01/05/21 Unknown Rx [ProAir HFA Inhaler] HYDROcodone/APAP 5-325 [[place] 1 - 2 each PO Q6HR PRN #10 tablet 01/25/21 Unknown Rx 5/325] Ibuprofen [Motrin 800 MG tab] 800 mg PO Q8HR PRN #20 tablet 01/25/21 Unknown Rx HYDROcodone/APAP 7.5-325 [[place] 1 each PO Q6HR PRN #15 tablet 01/27/21 Unknown Rx 7.5/325] Ondansetron [Zofran Odt] 4 mg PO Q6HR PRN #20 tab.rapdis 01/27/21 Unknown Rx Sennosides/Docusate Sodium [Senna 1 each PO QHS #12 tablet 01/27/21 Unknown Rx Plus 8.6-50 mg Tablet] Ciprofloxacin HCl 500 mg PO Q12H #14 tablet 01/29/21 Unknown Rx ED Physical Exam - General Limitations: No Limitations General appearance: alert, in no apparent distress - Head Head exam: Present: atraumatic, normocephalic - Eye Eye exam: Present: normal appearance - Neck Neck exam: Present: normal inspection, full ROM. Absent: lymphadenopathy - Respiratory Respiratory exam: Present: normal lung sounds bilaterally. Absent: respiratory distress, wheezes, rales, rhonchi, stridor, chest wall tenderness, accessory muscle use, decreased breath sounds, prolonged expiratory - Cardiovascular Cardiovascular Exam: Present: regular rate, normal rhythm, normal heart sounds. Absent: bradycardia, tachycardia, irregular rhythm, systolic murmur, diastolic murmur, rubs, gallop - GI/Abdominal GI/Abdominal exam: Present: soft, normal bowel sounds. Absent: distended, tenderness, guarding, rebound, rigid, diminished bowel sounds - Extremities Exam Extremities exam: Present: normal inspection, full ROM - Back Exam Back exam: Present: normal inspection, full ROM. Absent: tenderness, CVA tenderness (R), CVA tenderness (L), muscle spasm, paraspinal tenderness, vertebral tenderness, rash noted - Neurological Exam Neurological exam: Present: alert, oriented X3, normal gait - Psychiatric Psychiatric exam: Present: normal affect, normal mood - Skin Skin exam: Present: warm, dry, intact, normal color. Absent: rash ED Course Vital Signs 01/29/21 13:14 Temperature 97.3 F L Pulse Rate 72 Respiratory 20 Rate Blood Pressure 159/79 O2 Sat by Pulse 99 Oximetry - Reevaluation(s) Reevaluation #1: 01/29/21 17:23 Patient is speaking in full sentences with no signs of distress noted. ED Medical Decision Making - Lab Data Result diagrams: 01/29/21 14:48 01/29/21 14:48 Lab Results 01/29/21 01/29/21 01/29/21 Range/Units 14:48 14:48 14:48 WBC 6.8 (4.5-11.0) K/mm3 RBC 4.48 (3.65-5.03) M/mm3 Hgb 13.3 (10.1-14.3) gm/dl Hct 40.0 (30.3-42.9) % MCV 89 (79-97) fl MCH 30 (28-32) pg MCHC 33 (30-34) % RDW 13.6 (13.2-15.2) % Plt Count 271 (140-440) K/mm3 Lymph % (Auto) 20.6 (13.4-35.0) % [place] % (Auto) 6.3 (0.0-7.3) % Eos % (Auto) 2.2 (0.0-4.3) % Baso % (Auto) 1.0 (0.0-1.8) % Lymph # (Auto) 1.4 (1.2-5.4) K/mm3 [place] # (Auto) 0.4 (0.0-0.8) K/mm3 Eos # (Auto) 0.1 (0.0-0.4) K/mm3 Baso # (Auto) 0.1 (0.0-0.1) K/mm3 Seg Neutrophils % 69.9 (40.0-70.0) % Seg Neutrophils # 4.8 (1.8-7.7) K/mm3 VBG pH 7.437 H (7.320-7.420) Sodium 137 (137-145) mmol/L Potassium 5.0 (3.6-5.0) mmol/L Chloride 99.9 (98-107) mmol/L Carbon Dioxide 25 (22-30) mmol/L Anion Gap 17 mmol/L BUN 19 H (7-17) mg/dL Creatinine 1.1 (0.6-1.2) mg/dL Estimated GFR 49 ml/min BUN/Creatinine Ratio 17 % Glucose 354 H (65-100) mg/dL Calcium 9.0 (8.4-10.2) mg/dL Total Bilirubin 0.40 (0.1-1.2) mg/dL AST 11 (5-40) units/L ALT 5 L (7-56) units/L Alkaline Phosphatase 119 (35-129) units/L Total Protein 5.7 L (6.3-8.2) g/dL Albumin 3.7 L (3.9-5) g/dL Albumin/Globulin Ratio 1.9 % Urine Color (Yellow) Urine Turbidity (Clear) Urine pH (5.0-7.0) Ur Specific [place] (1.003-1.030) Urine Protein (Negative) mg/dL Urine Glucose (UA) (Negative) mg/dL Urine Ketones (Negative) mg/dL Urine Blood (Negative) Urine Nitrite (Negative) Urine Bilirubin (Negative) Urine Urobilinogen (<2.0) mg/dL Ur Leukocyte Esterase (Negative) Urine WBC (Auto) (0.0-6.0) /HPF Urine RBC (Auto) (0.0-6.0) /HPF U Epithel Cells (Auto) (0-13.0) /HPF Urine Bacteria (Auto) (Negative) /HPF Urine Yeast (Budding) /HPF 01/29/21 Range/Units 16:31 WBC (4.5-11.0) K/mm3 RBC (3.65-5.03) M/mm3 Hgb (10.1-14.3) gm/dl Hct (30.3-42.9) % MCV (79-97) fl MCH (28-32) pg MCHC (30-34) % RDW (13.2-15.2) % Plt Count (140-440) K/mm3 Lymph % (Auto) (13.4-35.0) % [place] % (Auto) (0.0-7.3) % Eos % (Auto) (0.0-4.3) % Baso % (Auto) (0.0-1.8) % Lymph # (Auto) (1.2-5.4) K/mm3 [place] # (Auto) (0.0-0.8) K/mm3 Eos # (Auto) (0.0-0.4) K/mm3 Baso # (Auto) (0.0-0.1) K/mm3 Seg Neutrophils % (40.0-70.0) % Seg Neutrophils # (1.8-7.7) K/mm3 VBG pH (7.320-7.420) Sodium (137-145) mmol/L Potassium (3.6-5.0) mmol/L Chloride (98-107) mmol/L Carbon Dioxide (22-30) mmol/L Anion Gap mmol/L BUN (7-17) mg/dL Creatinine (0.6-1.2) mg/dL Estimated GFR ml/min BUN/Creatinine Ratio % Glucose (65-100) mg/dL Calcium (8.4-10.2) mg/dL Total Bilirubin (0.1-1.2) mg/dL AST (5-40) units/L ALT (7-56) units/L Alkaline Phosphatase (35-129) units/L Total Protein (6.3-8.2) g/dL Albumin (3.9-5) g/dL Albumin/Globulin Ratio % Urine Color Yellow (Yellow) Urine Turbidity Clear (Clear) Urine pH 7.0 (5.0-7.0) Ur Specific [place] 1.015 (1.003-1.030) Urine Protein 100 mg/dl (Negative) mg/dL Urine Glucose (UA) >=500 (Negative) mg/dL Urine Ketones Tr (Negative) mg/dL Urine Blood Sm (Negative) Urine Nitrite Neg (Negative) Urine Bilirubin Neg (Negative) Urine Urobilinogen < 2.0 (<2.0) mg/dL Ur Leukocyte Esterase Sm (Negative) Urine WBC (Auto) 69.0 H (0.0-6.0) /HPF Urine RBC (Auto) 5.0 (0.0-6.0) /HPF U Epithel Cells (Auto) 1.0 (0-13.0) /HPF Urine Bacteria (Auto) 1+ (Negative) /HPF Urine Yeast (Budding) Few /HPF - Radiology Data [facility] [address] [place] [address] Cat Scan Report Signed Patient: FABIENNE ARMENDARIZ MR#: [id number] 6 : 1950 Acct:[id number] Age/Sex: 70 / F ADM Date: 01/27/21 Loc: ED Attending Dr: Ordering Physician: TENISHA CAPUTO MD Date of Service: 01/27/21 Procedure(s): CT abdomen pelvis wo con Accession Number(s): [id number] cc: TENISHA CAPUTO MD CT OF THE ABDOMEN AND PELVIS WITHOUT CONTRAST INDICATION / CLINICAL INFORMATION: Left flank pain and history of stones. TECHNIQUE: All CT scans at this location are performed using CT dose reduction for ALARA by means of automated exposure control. COMPARISON: None available. FINDINGS: ABDOMEN: There is a 2 mm nonobstructive calculus in the right mid kidney. No other renal calculi are seen. There is no evidence of hydronephrosis, perinephric soft tissue stranding or renal mass. The gallbladder is surgically absent. There are multiple small calcified granulomata scattered throughout the liver and spleen. The bile ducts, pancreas, adrenal glands and bowel demonstrate no significant abnormality. No adenopathy is present. The lung bases are unremarkable. There is moderate coronary artery calcification. PELVIS: The distal ureters and urinary bladder are normal. The uterus is not identified. There is no evidence of adnexal mass or free fluid. The appendix is not seen and there is no evidence of diverticulitis. I do not identify a hernia. There is mild spondylosis. IMPRESSION: 1. Tiny nonobstructive right renal calculus. No evidence of ureteral calculus or hydronephrosis. 2. No acute intra-abdominal disease is identified. Signer Name: Ede Montes MD Signed: 01/27/2021 6:50 PM Workstation Name: [id number] Transcribed By: RT Dictated By: Ede Motnes MD Electronically A uthenticated By: Ede Montes MD Signed Date/Time: 01/27/211849 DD/ 46 TD/TT: - Medical Decision Making This is a 70-year-old female that presents with UTI with renal stone that is nonobstructing. Patient is stable and was examined by me. I reviewed patient's CT scan that was done yesterday and discharge instructions. I will add antibi otics at discharge due to nonprescribed yesterday. Patient also received IV antibiotics as initial dose in the ER. UA obtained. Patient does not have any CVA tenderness. No signs or symptoms of pyelonephritis. Patient received levofloxacin 500 mg IV in the ED. Patient is discharged with ciprofloxacin. Patient was instructed to Follow-up with a primary care doctor in 3-5 days or if symptoms worsen and continue return to emergency room as soon as possible. At time of discharge, the patient does not seem toxic or ill in appearance. No acute signs of distress noted. Patient agrees to discharge treatment plan of care. No further questions noted by the patient. Critical care attestation.: If time is entered above; I have spent that time in minutes in the direct care of this critically ill patient, excluding procedure time. ED Disposition Clinical Impression: Ureterolithiasis UTI (urinary tract infection) Qualifiers: Urinary tract infection type: acute cystitis Hematuria presence: with hematuria Qualified Code(s): N30.01 - Acute cystitis with hematuria Disposition: TO HOME OR SELFCARE Is pt being admited?: No Does the pt Need Aspirin: No Condition: Stable Instructions: Urinary Tract Infection, Adult, [id number] Additional Instructions: Follow-up with a primary care doctor in 3-5 days or if symptoms worsen and continue return to emergency room as soon as possible. Prescriptions: Ciprofloxacin HCl 500 mg PO Q12H #14 tablet Referrals: PRIMARY MD MARBELLA [Primary Care Provider] - 3-5 Days ALISON KAISER MD [Staff Physician] - 3-5 Days Time of Disposition: 17:28
== END 2021-01-29 19:03 | disposition home or self-care (01) ==
LOC: ED 12:47
DX: N20.1 Calculus of ureter (principal); N39.0 Urinary tract infection, site not specified; I10 Essential (primary) hypertension; E11.9 Type 2 diabetes mellitus without complications; J44.9 Chronic obstructive pulmonary disease, unspecified; I25.10 Atherosclerotic heart disease of native coronary artery without angina pectoris; Z88.6 Allergy status to analgesic agent; Z88.0 Allergy status to penicillin; Z79.899 Other long term (current) drug therapy; Z98.890 Other specified postprocedural states
CPT/HCPCS: 36415; 80053; 81001; 82805; 82962; 85025; 87076; 87086; 87186; 96361; 96365; 96375; 99284; J1956; J2270; J2405; J7030; J1815

== ENCOUNTER 2021-02-02 12:49 | Emergency (ER) | payer MEDICARE ==
[2021-02-02 15:12] VITALS: BP 151/81
[2021-02-02 16:37] LABS: Bacteria,Urine 1+ /HPF (Negative); Bilirubin,Urine NEG (Negative); Blood,Urine SM (Negative); Color,Urine Yellow (Yellow); Hyaline Casts,Urine 1 /LPF; Mucus,Urine FEW /HPF
[2021-02-02] MEDS ORDERED: ONDANSETRON 4 MG/2 ML INJ IV ONE (16:59)
[2021-02-02] MEDS ORDERED: SODIUM CHLORIDE 0.9% 1000 ML 1,000 ML IV ONE ×2 (16:59→18:57)
[2021-02-02] MEDS ORDERED: KETOROLAC 30 MG/1 ML INJ IV ONE (17:00)
[2021-02-02] MEDS ORDERED: HYDROcodone/ACETAMINOPHEN 5-325 MG TAB PO ONE (17:01)
[2021-02-02 17:35] LABS: Basophils # (Auto) 0.1 K/mm3 (0.0-0.1); Eosinophils # (Auto) 0.2 K/mm3 (0.0-0.4); Eosinophils % (Auto) 2.4 % (0.0-4.3); Hematocrit 41.7 % (30.3-42.9); Hemoglobin 14.3 gm/dl (10.1-14.3); Lymphocytes % (Auto) 22.9 % (13.4-35.0); Mean Corpuscular HGB Conc 34 % (30-34); Mean Corpuscular Volume 89 fl (79-97); Monocytes # (Auto) 0.5 K/mm3 (0.0-0.8); Monocytes % (Auto) 5.9 % (0.0-7.3); Platelet Count 328 K/mm3 (140-440); Red Blood Count 4.69 M/mm3 (3.65-5.03)
--- NOTE | 2021-02-02 17:37 | Emergency Department Report ---
ED Abdominal Pain HPI - General Chief Complaint: Urogenital-Female Stated Complaint: LOWER BACK PAINS Source: patient, EMS Mode of arrival: Wheelchair Limitations: No Limitations - History of Present Illness Initial Comments: Patient is a 70-year-old white female with a history of ane-nziftuw-kcwdcgsub diabetes, hypertension, kidney stones, CAD s/p PTCA stents, thyroid cancer, asthma or COPD who presents to the ED with complaint of acute onset persistent severe right flank pain that radiates to the right-sided lumbosacral area for the last 1 week. Patient states that the pain got worse 24 hours ago after she slipped and fell in the bathtub. Patient states that the pain is constant, worse with any movement and that she also developed nausea with worsening pain. Patient states that she suspects that her pain may be from chronic kidney stones that she previously had 20 years ago and which was relieved by lithotripsy procedure. Patient denies heavy lifting, vomiting, hematuria, vaginal bleeding, dysuria, urinary frequency and urgency, diarrhea, chest pain or shortness of breath, numbness and tingling or weakness of lower extremities bilaterally, syncope, seizures or change in vision. MD Complaint: abdominal pain (Right flank pain), flank pain (Right flank pain), other (Low back pain with nausea) -: Sudden, week(s) (1) Location: R flank Radiation: R flank, back (Low back) Migration to: no migration Severity: severe Severity scale (0 -10): 8 Quality: aching, sharp Consistency: constant Improves With: nothing Worsens With: nothing Context: recent injury (S/p fall 24 hours ago, with underlying severe low back pain) Associated Symptoms: denies other symptoms, nausea. denies: vomiting, diarrhea, fever, chills, constipation, melena, hematuria, anorexia, syncope - Related Data Previous Rx's Medication Instructions Recorded Last Taken Type Aspirin [Adult Aspirin] 81 mg PO QDAY #30 12/26/20 Unknown Rx AtorvaSTATin [Lipitor] 40 mg PO QHS #30 12/26/20 Unknown Rx Clopidogrel [Plavix] 75 mg PO QDAY #30 12/26/20 Unknown Rx Diabetic Supplies,Miscell [Cequr 1 each MC BID #1 miscell 12/26/20 Unknown Rx [employer]] Gabapentin 600 mg PO TID #90 cap 12/26/20 Unknown Rx Insulin NPH/Regular [Novolin 70/30] 100 unit SQ BIDDIAB #1 vial 12/26/20 Unknown Rx Levothyroxine [Synthroid] 50 mcg PO QDAY #30 12/26/20 Unknown Rx Metoprolol [Lopressor TAB] 25 mg PO QDAY #30 12/26/20 Unknown Rx Nicotine [Habitrol] 21 mg TD QDAY #14 patch 12/26/20 Unknown Rx amLODIPine 5 mg PO DAILY #30 12/26/20 Unknown Rx busPIRone [Buspar] 5 mg PO TID #90 12/26/20 Unknown Rx hydrALAZINE [Apresoline TAB] 25 mg PO TID #90 12/26/20 Unknown Rx traZODone [Desyrel] 150 mg PO QHS #90 12/26/20 Unknown Rx Albuterol Mdi (or & Nicu Only) 2 puff IH QID PRN #8.5 gram 01/05/21 Unknown Rx [ProAir HFA Inhaler] HYDROcodone/APAP 5-325 [[place] 1 - 2 each PO Q6HR PRN #10 tablet 01/25/21 Unknown Rx 5/325] Ibuprofen [Motrin 800 MG tab] 800 mg PO Q8HR PRN #20 tablet 01/25/21 Unknown Rx HYDROcodone/APAP 7.5-325 [[place] 1 each PO Q6HR PRN #15 tablet 01/27/21 Unknown Rx 7.5/325] Ondansetron [Zofran Odt] 4 mg PO Q6HR PRN #20 tab.rapdis 01/27/21 Unknown Rx Sennosides/Docusate Sodium [Senna 1 each PO QHS #12 tablet 01/27/21 Unknown Rx Plus 8.6-50 mg Tablet] Ciprofloxacin HCl 500 mg PO Q12H #14 tablet 01/29/21 Unknown Rx Baclofen 20 mg PO Q12H PRN #20 tablet 02/02/21 Unknown Rx Naproxen 500 mg PO Q12H PRN #30 tablet 02/02/21 Unknown Rx Allergies Allergy/AdvReac Type Severity Reaction Status Date / Time codeine Allergy Unknown Verified 01/29/21 13:10 Penicillins Allergy Unknown Verified 01/29/21 13:10 ED Review of Systems ROS: Stated complaint: LOWER BACK PAINS Other details as noted in HPI Constitutional: denies: chills, fever Eyes: denies: eye pain, eye discharge, vision change ENT: denies: ear pain, throat pain Respiratory: denies: cough, shortness of breath, wheezing Cardiovascular: denies: chest pain, palpitations Endocrine: no symptoms reported Gastrointestinal: abdominal pain (Right flank pain), nausea. denies: diarrhea Genitourinary: denies: urgency, dysuria, discharge Musculoskeletal: back pain (Low back pain). denies: joint swelling, arthralgia Skin: denies: rash, lesions Neurological: denies: headache, weakness, paresthesias Psychiatric: denies: anxiety, depression Hematological/Lymphatic: denies: easy bleeding, easy bruising ED Past Medical Hx - Past Medical History Previous Medical History?: Yes Hx Hypertension: Yes Hx Heart Attack/AMI: Yes (stent x2) Hx Congestive Heart Failure: No Hx Diabetes: Yes Hx Asthma: Yes Hx COPD: Yes Additional medical history: Coronary artery disease, thyroid cancer - Surgical History Past Surgical History?: Yes Hx Coronary Stent: Yes (Stents x 2) Additional Surgical History: Partial Thyroid Removal due to Cancer - Social History Smoking Status: Never Smoker Substance Use Type: None - Medications Home Medications: Home Medications Medication Instructions Recorded Confirmed Last Taken Type Aspirin [Adult Aspirin] 81 mg PO QDAY #30 12/26/20 Unknown Rx AtorvaSTATin [Lipitor] 40 mg PO QHS #30 12/26/20 Unknown Rx Clopidogrel [Plavix] 75 mg PO QDAY #30 12/26/20 Unknown Rx Diabetic Supplies,Miscell [Cequr 1 each MC BID #1 miscell 12/26/20 Unknown Rx [employer]] Gabapentin 600 mg PO TID #90 cap 12/26/20 Unknown Rx Insulin NPH/Regular [Novolin 70/30] 100 unit SQ BIDDIAB #1 vial 12/26/20 Unknown Rx Levothyroxine [Synthroid] 50 mcg PO QDAY #30 12/26/20 Unknown Rx Metoprolol [Lopressor TAB] 25 mg PO QDAY #30 12/26/20 Unknown Rx Nicotine [Habitrol] 21 mg TD QDAY #14 patch 12/26/20 Unknown Rx amLODIPine 5 mg PO DAILY #30 12/26/20 Unknown Rx busPIRone [Buspar] 5 mg PO TID #90 12/26/20 Unknown Rx hydrALAZINE [Apresoline TAB] 25 mg PO TID #90 12/26/20 Unknown Rx traZODone [Desyrel] 150 mg PO QHS #90 12/26/20 Unknown Rx Albuterol Mdi (or & Nicu Only) 2 puff IH QID PRN #8.5 gram 01/05/21 Unknown Rx [ProAir HFA Inhaler] HYDROcodone/APAP 5-325 [[place] 1 - 2 each PO Q6HR PRN #10 tablet 01/25/21 Unknown Rx 5/325] Ibuprofen [Motrin 800 MG tab] 800 mg PO Q8HR PRN #20 tablet 01/25/21 Unknown Rx HYDROcodone/APAP 7.5-325 [[place] 1 each PO Q6HR PRN #15 tablet 01/27/21 Unknown Rx 7.5/325] Ondansetron [Zofran Odt] 4 mg PO Q6HR PRN #20 tab.rapdis 01/27/21 Unknown Rx Sennosides/Docusate Sodium [Senna 1 each PO QHS #12 tablet 01/27/21 Unknown Rx Plus 8.6-50 mg Tablet] Ciprofloxacin HCl 500 mg PO Q12H #14 tablet 01/29/21 Unknown Rx Baclofen 20 mg PO Q12H PRN #20 tablet 02/02/21 Unknown Rx Naproxen 500 mg PO Q12H PRN #30 tablet 02/02/21 Unknown Rx ED Physical Exam - General Limitations: No Limitations General appearance: alert, in no apparent distress - Head Head exam: Present: atraumatic, normocephalic, normal inspection - Eye Eye exam: Present: normal appearance, PERRL, EOMI Pupils: Present: normal accommodation - ENT ENT exam: Present: normal exam, normal orophraynx, mucous membranes moist, TM's normal bilaterally, normal external ear exam - Neck Neck exam: Present: normal inspection, full ROM - Respiratory Respiratory exam: Present: normal lung sounds bilaterally. Absent: respiratory distress, wheezes, rales, rhonchi, chest wall tenderness, accessory muscle use, decreased breath sounds - Cardiovascular Cardiovascular Exam: Present: regular rate, normal rhythm, normal heart sounds. Absent: systolic murmur, diastolic murmur, rubs, gallop - GI/Abdominal GI/Abdominal exam: Present: soft, tenderness (Palpable severe right flank tenderness reproducible), normal bowel sounds. Absent: guarding, rebound, hyperactive bowel sounds, hypoactive bowel sounds, organomegaly - Extremities Exam Extremities exam: Present: normal inspection, full ROM, tenderness (Palpable right-sided lumbosacral paraspinal musculoskeletal tenderness) - Back Exam Back exam: Present: normal inspection, full ROM, tenderness, muscle spasm, paraspinal tenderness. Absent: CVA tenderness (R), CVA tenderness (L), vertebral tenderness - Neurological Exam Neurological exam: Present: alert, oriented X3, CN II-XII intact, normal gait, reflexes normal - Psychiatric Psychiatric exam: Present: normal affect, normal mood, anxious - Skin Skin exam: Present: warm, dry, intact, normal color. Absent: rash ED Course Vital Signs 02/02/21 02/02/21 02/02/21 15:01 17:41 17:44 Temperature 98.6 F Pulse Rate 77 Respiratory 18 16 16 Rate Blood Pressure 151/81 O2 Sat by Pulse 99 Oximetry ED Medical Decision Making - Lab Data Result diagrams: 02/02/21 17:14 02/02/21 17:14 - Radiology Data Radiology results: report reviewed, [place] [address] Cat Scan Report Signed Patient: FABIENNE ARMENDARIZ MR#: [id number] : 1950 Acct:[id number] Age/Sex: 70 / F ADM Date: 02/02/21 Loc: ED Attending Dr: Ordering Physician: COURTNEY LEVINE Date of Service: 02/02/21 Procedure(s): CT abdomen pelvis wo con Accession Number(s): [id number] cc: COURTNEY LEVINE CT ABDOMEN AND PELVIS WITHOUT CONTRAST INDICATION / CLINICAL INFORMATION: Right flank pain, history of kidney stones. TECHNIQUE: Axial CT images were obtained through the abdomen and pelvis without IV c ontrast. All CT scans at this location are performed using CT dose reduction for ALARA by means of automated exposure control. COMPARISON: CT abdomen and pelvis without contrast from 01/27/2021. FINDINGS: LOWER CHEST: The lung bases are clear. Extensive coronary atherosclerosis is again seen. LIVER: Calcified granulomas are again seen without other significant abnormalities. GALLBLADDER: Surgically absent. BILE DUCTS: No significant abnormality. PANCREAS: No significant abnormality. SPLEEN: Calcified granulomas are again noted without other significant abno rmalities. ADRENALS: No significant abnormality. RIGHT KIDNEY / URETER: A 1-2 mm nonobstructive right upper renal pole stone is again seen. No other significant abnormality. LEFT KIDNEY / URETER: No significant abnormality. STOMACH / SMALL BOWEL: There is nonspecific mild distention of the stomach by previously ingested material without other significant abnormalities. COLON: No significant abnormality. APPENDIX: No significant abnormality. PERITONEUM: No free fluid. No free air. No fluid collection. LYMPH NODES: No significant adenopathy. AORTA / ARTERIES: Normal caliber of the aorta with moderate generalized atherosclerosis. IVC / VEINS: No significant abnormality. URINARY BLADDER: No significant abnormality. REPRODUCTIVE ORGANS: Uterus is absent. No significant adnexal abnormality. ADDITIONAL FINDINGS: None. SKELETAL SYSTEM: No acute abnormalities or other significant interval changes. IMPRESSION: 1. No acute abnormality to explain the patient's right flank pain. 2. No significant interval changes compared to the CT from 01/27/2021. Signer Name: Joni Dalton MD Signed: 02/02/2021 5:43 PM Workstation Name: [id number] Transcribed By: [place] Dictated By: Joni Dalton MD Electronically Authenticated By: Joni Dalton MD Signed Date/Time: 02/02/211742 DD/ 36 TD/TT: - Medical Decision Making This is a 70-year-old white female with a history of ewl-sgitfyq-pwluubelc diabetes, hypertension, kidney stones, CAD s/p PTCA stents, thyroid cancer, asthma or COPD who presents to the ED with complaint of acute onset persistent severe right flank pain that radiates to the right-sided lumbosacral area for the last 1 week. Patient states that the pain got worse 24 hours ago after she slipped and fell in the bathtub. Patient states that the pain is constant, worse with any movement and that she also developed nausea with worsening pain. Patient states that she suspects that her pain may be from chronic kidney stones that she previously had 20 years ago and which was relieved by lithotripsy procedure. In the ED, patient is alert and oriented x3 and is not in any distress but appears anxious and in pain. Patient was treated for pain in the ED and also received normal saline 1 L IV bolus x1 as well as given antiemetics. Lab test results were reviewed and are all nonactionable except for hyperglycemia of 360 mg/dL. Patient received 2 L of normal saline IV bolus and on reevaluation, hyperglycemia improved to 20 mg/dL. Abdomen pelvis CT scan without contrast showed no acute abnormalities. On reevaluation, patient's pain is well controlled medications. Patient symptoms are likely due to muscle spasm low back as well as chronic low back pain due to degenerative lumbar disc disease. Patient was discharged home on medications and advised to follow-up with her primary care physician in 7 to 10 days for reevaluation or return to the ED immediately if symptoms get worse. - Differential Diagnosis Kidney stones; muscle spasm; muscle strain; pyelonephritis; UTI; Critical care attestation.: If time is entered above; I have spent that time in minutes in the direct care of this critically ill patient, excluding procedure time. ED Disposition Clinical Impression: Acute abdominal pain in right flank, Spasm of muscle of lower back, Chronic bilateral low back pain without sciatica Disposition: TO HOME OR SELFCARE Is pt being admited?: No Does the pt Need Aspirin: No Condition: Stable Instructions: Abdominal Pain, Adult, [id number] Additional Instructions: All lab test results were reviewed and are all nonactionable. Abdomen pelvis CT scan without contrast showed no acute abnormalities including kidney stones. Your symptoms are likely due to muscle spasm of your low back. Therefore take medications with food, drink plenty fluids and follow-up with your primary care physician in 5 to 7 days for reevaluation. Return to the ED immediately if symptoms get worse. Prescriptions: Baclofen 20 mg PO Q12H PRN #20 tablet PRN Reason: Muscle Spasm Naproxen 500 mg PO Q12H PRN #30 tablet PRN Reason: Pain , Severe (7-10) Referrals: [facility] [Provider Group] - 7-10 days Time of Disposition: 23:36 Print Language: YAKUT
--- NOTE | 2021-02-02 17:47 | Cat Scan Report ---
CT ABDOMEN AND PELVIS WITHOUT CONTRAST INDICATION / CLINICAL INFORMATION: Right flank pain, history of kidney stones. TECHNIQUE: Axial CT images were obtained through the abdomen and pelvis without IV contrast. All CT scans at [facility] location are performed using CT dose reduction for ALARA by means of automated exposure control. COMPARISON: CT abdomen and pelvis without contrast from 01/27/2021. FINDINGS: LOWER CHEST: The lung bases are clear. Extensive coronary atherosclerosis is again seen. LIVER: Calcified granulomas are again seen without other significant abnormalities. GALLBLADDER: Surgically absent. BILE DUCTS: No significant abnormality. PANCREAS: No significant abnormality. SPLEEN: Calcified granulomas are again noted without other significant abnormalities. ADRENALS: No significant abnormality. RIGHT KIDNEY / URETER: A 1-2 mm nonobstructive right upper renal pole stone is again seen. No other s ignificant abnormality. LEFT KIDNEY / URETER: No significant abnormality. STOMACH / SMALL BOWEL: There is nonspecific mild distention of the stomach by previously ingested mat erial without other significant abnormalities. COLON: No significant abnormality. APPENDIX: No significant abnormality. PERITONEUM: No free fluid. No free air. No fluid collection. LYMPH NODES: No significant adenopathy. AORTA / ARTERIES: Normal caliber of the aorta with moderate generalized atherosclerosis. IVC / VEINS: No significant abnormality. URINARY BLADDER: No significant abnormality. REPRODUCTIVE ORGANS: Uterus is absent. No significant adnexal abnormality. ADDITIONAL FINDINGS: None. SKELETAL SYSTEM: No acute abnormalities or other significant interval changes. IMPRESSION: 1. No acute abnormality to explain the patient's right flank pain. 2. No significant interval changes compared to the CT from 01/27/2021. Signer Name: Joni Dalton MD Signed: 02/02/2021 5:43 PM Workstation Name: [id number]
[2021-02-02 17:52] LABS: Albumin 3.9 g/dL (3.9-5); Calcium 8.7 mg/dL (8.4-10.2)
== END 2021-02-02 23:45 | disposition home or self-care (01) ==
LOC: ED 12:49
DX: M54.5 Low back pain (principal); M62.830 Muscle spasm of back; R10.9 Unspecified abdominal pain; I10 Essential (primary) hypertension; I25.2 Old myocardial infarction; E11.9 Type 2 diabetes mellitus without complications; J44.9 Chronic obstructive pulmonary disease, unspecified; Z98.890 Other specified postprocedural states; Z79.1 Long term (current) use of non-steroidal anti-inflammatories (NSAID); Z79.4 Long term (current) use of insulin; Z79.899 Other long term (current) drug therapy; Z88.0 Allergy status to penicillin; Z88.8 Allergy status to other drugs, medicaments and biological substances
CPT/HCPCS: 36415; 74176; 80053; 81001; 82962; 85025; 96361; 96374; 96375; 99284; J1885; J2405; J7030

== ENCOUNTER 2021-02-08 15:59 | Observation (INO) | payer MEDICARE ==
--- NOTE | 2021-02-08 17:08 | Event Note ---
ED Screening Note Date of service: 02/08/21 Time: 17:06 ED Screening Note: 70-year-old female patient with history of coronary artery disease presents to the emergency department via EMS with complaints of back pain for 3 weeks. Patient states she fell approximately 2 weeks ago. She is on Plavix. States she "falls often." Patient is nonambulatory at baseline due to neuropathy. Patient has been evaluated in the emergency department multiple times this month for similar symptoms. General: Awake, appropriately interactive, no acute distress. Neck: Supple. Full range of motion intact. Cardiovascular: Normal peripheral perfusion. Pulmonary: No respiratory distress. Patient is speaking normally without use of accessory muscles. Skin: Multiple ecchymotic areas noted to the upper extremities. Neurological: No facial asymmetry. Speech is clear. Follows commands. Patient is alert and oriented. Musculoskeletal: Moves all four extremities spontaneously with normal range of motion. Psych: Cooperative. Appropriate mood and affect. Exam limited in triage. Labs ordered. Decision to obtain repeat imaging deferred to additional ED providers following full history and comprehensive physical assessment. I have greeted and performed a focused rapid initial assessment of this patient. A comprehensive ED assessment and evaluation of the patient, analysis of all test results, and completion of the medical decision-making process will be conducted by additional ED providers. This initial assessment/diagnostic orders/clinical plan/treatment(s) is/are subject to change based on patients health status, clinical progression and re-assessment. Further treatment and workup at subsequent clinical provider's discretion. Patient/guardian urged not to elope from the ED as their condition may be serious if not clinically assessed and managed.
[2021-02-08 18:46] LABS: Basophils # (Auto) 0.1 K/mm3 (0.0-0.1); Basophils % (Auto) 0.8 % (0.0-1.8); Eosinophils # (Auto) 0.2 K/mm3 (0.0-0.4); Eosinophils % (Auto) 2.7 % (0.0-4.3); Hematocrit 39.9 % (30.3-42.9); Hemoglobin 12.9 gm/dl (10.1-14.3); Lymphocytes # (Auto) 1.6 K/mm3 (1.2-5.4); Lymphocytes % (Auto) 23.7 % (13.4-35.0); Mean Corpuscular HGB Conc 32 % (30-34); Mean Corpuscular Volume 92 fl (79-97); Monocytes # (Auto) 0.4 K/mm3 (0.0-0.8); Monocytes % (Auto) 5.7 % (0.0-7.3); Platelet Count 278 K/mm3 (140-440); Red Blood Count 4.36 M/mm3 (3.65-5.03); Red Cell Distribution Width 14.2 % (13.2-15.2)
[2021-02-08 19:02] LABS: INR 0.85 (0.87-1.13)
[2021-02-08 19:03] LABS: Partial Thromboplastin Time 24.1 Sec. (24.2-36.6)
[2021-02-08 19:05] LABS: Albumin 3.5 g/dL (3.9-5)
[2021-02-08] MEDS ORDERED: ACETAMINOPHEN 325 MG TAB PO ONE (19:17)
[2021-02-08] MEDS ORDERED: diazePAM 5 MG TAB PO ONE (19:17)
[2021-02-08] MEDS ORDERED: SODIUM CHLORIDE 0.9% 1000 ML 1,000 ML IV ONE ×2 (19:18→22:35)
--- NOTE | 2021-02-08 19:19 | Emergency Department Report ---
ED Back Pain/Injury HPI - General Chief Complaint: Back Pain/Injury Stated Complaint: BACK PAIN Time Seen by Provider: 02/08/21 18:46 Source: patient Limitations: Physical Limitation - History of Present Illness Initial Comments: 70-year-old female with a past medical history of noninsulin dependent diabetic, hypertension, kidney stones, CAD status post stent placement, asthma/COPD and thyroid disease presents to the ER today with complaints of right lower back pain which she has been having for the past 3 to 4 weeks. She states has been a constant pain that waxes and wanes. She states that it is nonradiating but she sometimes have pain in her right groin with it. She states that she fell a few weeks ago but was seen here and had xrays of her spine. She has not fallen since then. She has a history of peripheral neuropathy secondary to diabetes, but since having the back pain she reports no worsening numbness tingling in her extremities. She states that she has a history of recurrent falls secondary to her neuropathy and uses a wheelchair to move around. He reports no worsening weakness in her lower legs. She has a history of chronic urinary incontinence w hich has not gotten worse since her pain no has she had any bowel incontinence constipation or urinary retention. Patient states that she has been taking Tylenol with no relief. Patient [place] that [place] and has no one to take her to her doctors visits. She is also has a history of anxiety and she is been out of her BuSpar for 1 week and she has no refills at the pharmacy but she also reports that she has nobody to take her to the pharmacy to get her prescriptions. She reports no chest pain, shortness of breath, fever, chills or any other symptoms at this time. OFF NOTE: This is patient 6th visit to this ER in January for different complaints including right flank pain, back pain, hip pain and abdominal pain and discharge home. Patient had x-ray of her lumbar spine January 22, 2021 which showed mild facet arthrosis, L4-L5, L5-S1 but otherwise nothing acute. She also has had 2 [address]s one done on 01/27/2021 and 02/02/2021 which showed intrarenal stone but otherwise nothing acute. MD Complaint: back pain -: week(s) (3-4) - Related Data Previous Rx's Medication Instructions Recorded Last Taken Type Diabetic Supplies,Miscell [Cequr 1 each MC BID #1 miscell 12/26/20 Unknown Rx [employer]] Gabapentin 600 mg PO TID #90 cap 12/26/20 Unknown Rx traZODone [Desyrel] 150 mg PO QHS #90 12/26/20 Unknown Rx Albuterol Mdi (or & Nicu Only) 2 puff IH QID PRN #8.5 gram 01/05/21 Unknown Rx [ProAir HFA Inhaler] Sennosides/Docusate Sodium [Senna 1 each PO QHS #12 tablet 01/27/21 Unknown Rx Plus 8.6-50 mg Tablet] Aspirin [Adult Aspirin] 81 mg PO QDAY #30 02/09/21 Unknown Rx AtorvaSTATin [Lipitor] 40 mg PO QHS #30 02/09/21 Unknown Rx Baclofen [Lioresal] 20 mg PO Q12HR PRN #10 tablet 02/09/21 Unknown Rx Ciprofloxacin HCl 500 mg PO Q12H #14 tablet 02/09/21 Unknown Rx Clopidogrel [Plavix] 75 mg PO QDAY #30 02/09/21 Unknown Rx Insulin NPH/Regular [Novolin 70/30] 20 unit SUB-Q BIDAC #10 ml 02/09/21 Unknown Rx Insulin Regular, Human [HumuLIN R] 0 unit SQ AC #1 vial 02/09/21 Unknown Rx Levothyroxine [Synthroid] 50 mcg PO QDAY #30 02/09/21 Unknown Rx Metoprolol [Lopressor TAB] 25 mg PO QDAY #30 02/09/21 Unknown Rx Nicotine [Habitrol] 21 mg TD QDAY #14 patch 02/09/21 Unknown Rx amLODIPine 10 mg PO DAILY #30 tablet 02/09/21 Unknown Rx busPIRone [Buspar] 5 mg PO TID #90 02/09/21 Unknown Rx hydrALAZINE [Apresoline TAB] 25 mg PO TID #90 02/09/21 Unknown Rx Allergies Allergy/AdvReac Type Severity Reaction Status Date / Time codeine Allergy Unknown Verified 02/08/21 17:00 Penicillins Allergy Unknown Verified 02/08/21 17:00 ED Review of Systems ROS: Stated complaint: BACK PAIN Other details as noted in HPI Comment: All other systems reviewed and negative Constitutional: denies: chills, fever Eyes: denies: eye pain, eye discharge, vision change ENT: denies: ear pain, throat pain, dental pain, hearing loss, congestion Respiratory: denies: cough, shortness of breath, SOB with exertion, SOB at rest, wheezing Cardiovascular: denies: chest pain, palpitations, edema, syncope, paroxysmal nocturnal dyspnea Gastrointestinal: denies: abdominal pain, nausea, vomiting, diarrhea, constipation, hematemesis, melena, hematochezia Genitourinary: denies: urgency, dysuria, frequency, hematuria, discharge, abnormal menses, dyspareunia Musculoskeletal: back pain. denies: joint swelling, arthralgia, myalgia Skin: denies: rash, lesions Neurological: numbness (Lower extremity, secondary to a peripheral neuropathy), paresthesias (chronic, can [place] to her peripheral neuropathy) Psychiatric: denies: anxiety, depression, auditory hallucinations, visual hallucinations, homicidal thoughts, suicidal thoughts Hematological/Lymphatic: denies: easy bleeding, easy bruising ED Past Medical Hx - Past Medical History Hx Hypertension: Yes Hx Heart Attack/AMI: Yes (stent x2) Hx Congestive Heart Failure: No Hx Diabetes: Yes Hx Asthma: Yes Hx COPD: Yes Additional medical history: Coronary artery disease, thyroid cancer - Surgical History Hx Coronary Stent: Yes (Stents x 2) Additional Surgical History: Partial Thyroid Removal due to Cancer - Social History Smoking Status: Never Smoker Substance Use Type: None - Medications Home Medications: Home Medications Medication Instructions Recorded Confirmed Last Taken Type Diabetic Supplies,Miscell [Cequr 1 each MC BID #1 miscell 12/26/20 02/09/21 Unknown Rx [employer]] Gabapentin 600 mg PO TID #90 cap 12/26/20 02/09/21 Unknown Rx traZODone [Desyrel] 150 mg PO QHS #90 12/26/20 02/09/21 Unknown Rx Albuterol Mdi (or & Nicu Only) 2 puff IH QID PRN #8.5 gram 01/05/21 02/09/21 Unknown Rx [ProAir HFA Inhaler] Sennosides/Docusate Sodium [Senna 1 each PO QHS #12 tablet 01/27/21 02/09/21 Unknown Rx Plus 8.6-50 mg Tablet] Aspirin [Adult Aspirin] 81 mg PO QDAY #30 02/09/21 Unknown Rx AtorvaSTATin [Lipitor] 40 mg PO QHS #30 02/09/21 Unknown Rx Baclofen [Lioresal] 20 mg PO Q12HR PRN #10 tablet 02/09/21 Unknown Rx Ciprofloxacin HCl 500 mg PO Q12H #14 tablet 02/09/21 Unknown Rx Clopidogrel [Plavix] 75 mg PO QDAY #30 02/09/21 Unknown Rx Insulin NPH/Regular [Novolin 70/30] 20 unit SUB-Q BIDAC #10 ml 02/09/21 Unknown Rx Insulin Regular, Human [HumuLIN R] 0 unit SQ AC #1 vial 02/09/21 Unknown Rx Levothyroxine [Synthroid] 50 mcg PO QDAY #30 02/09/21 Unknown Rx Metoprolol [Lopressor TAB] 25 mg PO QDAY #30 02/09/21 Unknown Rx Nicotine [Habitrol] 21 mg TD QDAY #14 patch 02/09/21 Unknown Rx amLODIPine 10 mg PO DAILY #30 tablet 02/09/21 Unknown Rx busPIRone [Buspar] 5 mg PO TID #90 02/09/21 Unknown Rx hydrALAZINE [Apresoline TAB] 25 mg PO TID #90 02/09/21 Unknown Rx ED Physical Exam - General Limitations: Physical Limitation General appearance: alert, in no apparent distress, anxious, other (Patient anxious and crying) - Head Head exam: Present: atraumatic, normocephalic, normal inspection - Eye Eye exam: Present: normal appearance, PERRL, EOMI Pupils: Present: normal accommodation - ENT ENT exam: Present: normal exam, mucous membranes moist - Neck Neck exam: Present: normal inspection - Respiratory Respiratory exam: Present: normal lung sounds bilaterally. Absent: respiratory distress, wheezes, rales, rhonchi - Cardiovascular Cardiovascular Exam: Present: regular rate, normal rhythm, normal heart sounds - GI/Abdominal GI/Abdominal exam: Present: soft. Absent: distended, tenderness, guarding, rebound - Back Exam Back exam: Present: normal inspection, paraspinal tenderness (right lumbar) - Neurological Exam Neurological exam: Present: alert, oriented X3, CN II-XII intact - Expanded Neurological Exam Expanded Patient oriented to: Present: person, place, time Motor strength exam: RLE: 5, LLE: 5 Best Eye Response (Los): (4) open spontaneously Best Motor Response (Los): (6) obeys commands Best Verbal Response (Los): (5) oriented Los Total: 15 - Psychiatric Psychiatric exam: Present: anxious, other (Patient is tearful) - Skin Skin exam: Present: intact ED Course Vital Signs 02/08/21 02/08/21 17:03 18:28 Temperature 97.8 F Pulse Rate 75 89 Respiratory 22 19 Rate Blood Pressure 153/100 134/71 [Right] O2 Sat by Pulse 98 99 Oximetry ED Medical Decision Making - Lab Data Result diagrams: 02/09/21 09:13 02/09/21 09:13 - Medical Decision Making 2230: Review all labs -- CBC unremarkable. BS was 532 but now down to 390 1:01 liter of IV fluid and 7 units of insulin. Her urinalysis does not appear to be concerning for UTI at this time. She did have positive urine culture for ecoli which from her 01/29 visit but pt admits that she didn't get the cipro she was prescribed filled. Discussed case with Dr Alfaro who also saw and evaluated patient. See his note for details. We did revieiw pt labs from today as well as previous labs and there is concerning that pt is having hyperglycemia with worsening metabolic acidosis and therefore will discuss with hospitalist for admission. Isaac Ph ordered and pending as well as repeat BMP. 224: Discussed case with hospitalist, Dr Ledbetter, he has agreed to see patient. He agreed with just doing another IV fluid bolus and another bolus of insulin and also recommend starting patient on Levaquin for her untreated UTI. Patient currently resting comfortably. She is not in any acute distress. She appears to have come down. The decision for admission and reason for admitting with patient. Patient expresses understanding of instructions and agree with plan. Patient stable. Critical care attestation.: If time is entered above; I have spent that time in minutes in the direct care of this critically ill patient, excluding procedure time. ED Disposition Clinical Impression: Metabolic acidosis, Hyperglycemia due to diabetes mellitus, E-coli UTI, Low back pain Disposition: OP ADMIT IP TO THIS HOSP Is pt being admited?: Yes Condition: Stable
[2021-02-08] MEDS ORDERED: INSULIN REGULAR, HUMAN 100 UNITS/1 ML IV ONE ×2 (19:20→22:35)
[2021-02-08] MEDS ORDERED: NAPROXEN 500 MG TAB PO ONE (20:00)
[2021-02-08 22:15] LABS: Bilirubin,Urine NEG (Negative); Blood,Urine SM (Negative); Color,Urine Straw (Yellow); Mucus,Urine FEW /HPF; Urobilinogen,Urine < 2.0 mg/dL (<2.0)
--- NOTE | 2021-02-08 22:36 | Event Note ---
Date: 02/08/21 Laboratory studies, vital signs, imaging studies, cultures are reviewed and appreciated. The patient is 70, and she came here a few months ago from [facility]. She states that she has a daughter and granddaughter down there. The [place]. She tells me that she left [place] because of "too much drama down there." She tells me that she is planning on going back there in a few days. She is not homicidal or suicidal. She complains of chronic back pain. She complains of chronic neuropathic pain. She tells me that she has her insulin. A case management consultation was placed. She did not fill her ciprofloxacin from a few days ago. She has no irritative or obstructive urinary symptoms, but urine cultures are reviewed. At the moment, she is resting comfortably in her wheelchair, and in no acute distress, and states "I think I let my anxiety get the best of me." Plan is to give patient additional fluids, additional insulin I have discussed this plan of care with the patient. The physician assistant store manager trainee did a very thorough examination on this patient, including a rectal examination, skin and joint examination, did not find any acutely infectious process. This is most likely secondary to underlying social issues. Patient does not meet criteria for 1013 hold or involuntary hold. We will give additional IV fluids, and check venous pH, and repeat basic metabolic panel. It does appear that patient's anion gap has been gradually increasing over the past few days. Given worsening metabolic acidosis, inability to follow-up as outpatient, persistent hyperglycemia, noncompliance with antibiotics, positive urine cultures, repeat ER visits, this patient would benefit from hospitalization for correction of metabolic derangements, and culture positive UTI. Vital Signs 02/08/21 02/08/21 17:03 18:28 Temperature 97.8 F Pulse Rate 75 89 Respiratory 22 19 Rate Blood Pressure 153/100 134/71 [Right] O2 Sat by Pulse 98 99 Oximetry Lab Results 02/08/21 02/08/21 02/08/21 Range/Units 18:23 18:23 18:23 WBC 6.7 (4.5-11.0) K/mm3 RBC 4.36 (3.65-5.03) M/mm3 Hgb 12.9 (10.1-14.3) gm/dl Hct 39.9 (30.3-42.9) % MCV 92 (79-97) fl MCH 30 (28-32) pg MCHC 32 (30-34) % RDW 14.2 (13.2-15.2) % Plt Count 278 (140-440) K/mm3 Lymph % (Auto) 23.7 (13.4-35.0) % [place] % (Auto) 5.7 (0.0-7.3) % Eos % (Auto) 2.7 (0.0-4.3) % Baso % (Auto) 0.8 (0.0-1.8) % Lymph # (Auto) 1.6 (1.2-5.4) K/mm3 [place] # (Auto) 0.4 (0.0-0.8) K/mm3 Eos # (Auto) 0.2 (0.0-0.4) K/mm3 Baso # (Auto) 0.1 (0.0-0.1) K/mm3 Seg Neutrophils % 67.1 (40.0-70.0) % Seg Neutrophils # 4.5 (1.8-7.7) K/mm3 PT 12.1 L (12.2-14.9) Sec. INR 0.85 L (0.87-1.13) APTT 24.1 L (24.2-36.6) Sec. Sodium 136 L (137-145) mmol/L Potassium 3.7 (3.6-5.0) mmol/L Chloride 98.9 (98-107) mmol/L Carbon Dioxide 21 L (22-30) mmol/L Anion Gap 20 mmol/L BUN 25 H (7-17) mg/dL Creatinine 1.0 (0.6-1.2) mg/dL Estimated GFR 55 ml/min BUN/Creatinine Ratio 25 % Glucose 532 H* (65-100) mg/dL Calcium 8.0 L (8.4-10.2) mg/dL Magnesium 1.80 (1.7-2.3) mg/dL Total Bilirubin 0.20 (0.1-1.2) mg/dL AST 13 (5-40) units/L ALT 7 (7-56) units/L Alkaline Phosphatase 163 H (35-129) units/L Total Protein 6.0 L (6.3-8.2) g/dL Albumin 3.5 L (3.9-5) g/dL Albumin/Globulin Ratio 1.4 % Lipase (13-60) units/L Urine Color (Yellow) Urine Turbidity (Clear) Urine pH (5.0-7.0) Ur Specific [place] (1.003-1.030) Urine Protein (Negative) mg/dL Urine Glucose (UA) (Negative) mg/dL Urine Ketones (Negative) mg/dL Urine Blood (Negative) Urine Nitrite (Negative) Urine Bilirubin (Negative) Urine Urobilinogen (<2.0) mg/dL Ur Leukocyte Esterase (Negative) Urine WBC (Auto) (0.0-6.0) /HPF Urine RBC (Auto) (0.0-6.0) /HPF U Epithel Cells (Auto) (0-13.0) /HPF Urine Mucus /HPF 02/08/21 02/08/21 Range/Units 18:23 Unknown WBC (4.5-11.0) K/mm3 RBC (3.65-5.03) M/mm3 Hgb (10.1-14.3) gm/dl Hct (30.3-42.9) % MCV (79-97) fl MCH (28-32) pg MCHC (30-34) % RDW (13.2-15.2) % Plt Count (140-440) K/mm3 Lymph % (Auto) (13.4-35.0) % [place] % (Auto) (0.0-7.3) % Eos % (Auto) (0.0-4.3) % Baso % (Auto) (0.0-1.8) % Lymph # (Auto) (1.2-5.4) K/mm3 [place] # (Auto) (0.0-0.8) K/mm3 Eos # (Auto) (0.0-0.4) K/mm3 Baso # (Auto) (0.0-0.1) K/mm3 Seg Neutrophils % (40.0-70.0) % Seg Neutrophils # (1.8-7.7) K/mm3 PT (12.2-14.9) Sec. INR (0.87-1.13) APTT (24.2-36.6) Sec. Sodium (137-145) mmol/L Potassium (3.6-5.0) mmol/L Chloride (98-107) mmol/L Carbon Dioxide (22-30) mmol/L Anion Gap mmol/L BUN (7-17) mg/dL Creatinine (0.6-1.2) mg/dL Estimated GFR ml/min BUN/Creatinine Ratio % Glucose (65-100) mg/dL Calcium (8.4-10.2) mg/dL Magnesium (1.7-2.3) mg/dL Total Bilirubin (0.1-1.2) mg/dL AST (5-40) units/L ALT (7-56) units/L Alkaline Phosphatase (35-129) units/L Total Protein (6.3-8.2) g/dL Albumin (3.9-5) g/dL Albumin/Globulin Ratio % Lipase 43 (13-60) units/L Urine Color Straw (Yellow) Urine Turbidity Clear (Clear) Urine pH 5.0 (5.0-7.0) Ur Specific [place] 1.021 (1.003-1.030) Urine Protein 30 mg/dl (Negative) mg/dL Urine Glucose (UA) >=500 (Negative) mg/dL Urine Ketones Neg (Negative) mg/dL Urine Blood Sm (Negative) Urine Nitrite Neg (Negative) Urine Bilirubin Neg (Negative) Urine Urobilinogen < 2.0 (<2.0) mg/dL Ur Leukocyte Esterase Tr (Negative) Urine WBC (Auto) 5.0 (0.0-6.0) /HPF Urine RBC (Auto) 1.0 (0.0-6.0) /HPF U Epithel Cells (Auto) 2.0 (0-13.0) /HPF Urine Mucus Few /HPF
[2021-02-08] MEDS ORDERED: ACETAMINOPHEN 325 MG TAB PO PRN ×2 (22:47→22:55)
[2021-02-08] MEDS ORDERED: DEXTROSE 50% IN WATER (25GM) 50 ML SYRINGE IV PRN (22:47)
[2021-02-08] MEDS ORDERED: MAGNESIUM HYDROXIDE (MOM) ORAL LIQD UDC PO PRN (22:47)
[2021-02-08] MEDS ORDERED: ONDANSETRON 4 MG/2 ML INJ IV PRN ×2 (22:47→22:55)
[2021-02-08] MEDS ORDERED: MORPHINE 2 MG/1 ML INJ IV PRN (22:55)
[2021-02-08] MEDS ORDERED: MORPHINE 4 MG/1 ML INJ IV PRN (22:55)
[2021-02-08] MEDS ORDERED: SODIUM CHLORIDE 0.9% 1000 ML 1,000 ML IV SCH (23:00)
--- NOTE | 2021-02-08 23:01 | History and Physical Report ---
History of Present Illness Date of examination: 02/08/21 Date of admission: 02/08/2021 Chief complaint: Lower back pain History of present illness: 70-year-old white female with known history of diabetes mellitus, hypertension, coronary artery disease status post stent placement recently, asthma/COPD, history of chronic back pain presenting to the emergency room today with right lower back pain which has been ongoing for the past 3 to 4 weeks. Pain has been waxing and waning and is nonradiating. Patient denies any fever or chills, no chest pain or shortness of breath, no nausea vomiting, no abdominal pain. Patient was recently seen here in this hospital and he had UTI with urine cultures done and was prescribed some antibiotics but indicates she has not been able to fill the antibiotics. Work-up in the emergency room today reveals hyperglycemia with blood glucose in the 500s with anion gap of 20. Patient was given some IV fluid and also given some insulin in the emergency room. Patient is being admitted with hypoglycemia and intractable back pain. Past History Past Medical History: CAD, COPD, diabetes, hypertension, other (Asthma, thyroid cancer) Past Surgical History: PTCA (X2), Other (Partial thyroid removal due to cancer) Social history: no significant social history, full code Family history: no significant family history Medications and Allergies Allergies Allergy/AdvReac Type Severity Reaction Status Date / Time codeine Allergy Unknown Verified 02/08/21 17:00 Penicillins Allergy Unknown Verified 02/08/21 17:00 Home Medications Medication Instructions Recorded Confirmed Last Taken Type Aspirin [Adult Aspirin] 81 mg PO QDAY #30 12/26/20 Unknown Rx AtorvaSTATin [Lipitor] 40 mg PO QHS #30 12/26/20 Unknown Rx Clopidogrel [Plavix] 75 mg PO QDAY #30 12/26/20 Unknown Rx Diabetic Supplies,Miscell [Cequr 1 each MC BID #1 miscell 12/26/20 Unknown Rx Simplicity [employer]er] Gabapentin 600 mg PO TID #90 cap 12/26/20 Unknown Rx Insulin NPH/Regular [Novolin 70/30] 100 unit SQ BIDDIAB #1 vial 12/26/20 Unknown Rx Levothyroxine [Synthroid] 50 mcg PO QDAY #30 12/26/20 Unknown Rx Metoprolol [Lopressor TAB] 25 mg PO QDAY #30 12/26/20 Unknown Rx Nicotine [Habitrol] 21 mg TD QDAY #14 patch 12/26/20 Unknown Rx amLODIPine 5 mg PO DAILY #30 12/26/20 Unknown Rx busPIRone [Buspar] 5 mg PO TID #90 12/26/20 Unknown Rx hydrALAZINE [Apresoline TAB] 25 mg PO TID #90 12/26/20 Unknown Rx traZODone [Desyrel] 150 mg PO QHS #90 12/26/20 Unknown Rx Albuterol Mdi (or & Nicu Only) 2 puff IH QID PRN #8.5 gram 01/05/21 Unknown Rx [ProAir HFA Inhaler] HYDROcodone/APAP 5-325 [[place] 1 - 2 each PO Q6HR PRN #10 tablet 01/25/21 Unknown Rx 5/325] Ibuprofen [Motrin 800 MG tab] 800 mg PO Q8HR PRN #20 tablet 01/25/21 Unknown Rx HYDROcodone/APAP 7.5-325 [[place] 1 each PO Q6HR PRN #15 tablet 01/27/21 Unknown Rx 7.5/325] Ondansetron [Zofran Odt] 4 mg PO Q6HR PRN #20 tab.rapdis 01/27/21 Unknown Rx Sennosides/Docusate Sodium [Senna 1 each PO QHS #12 tablet 01/27/21 Unknown Rx Plus 8.6-50 mg Tablet] Ciprofloxacin HCl 500 mg PO Q12H #14 tablet 01/29/21 Unknown Rx Baclofen 20 mg PO Q12H PRN #20 tablet 02/02/21 Unknown Rx Naproxen 500 mg PO Q12H PRN #30 tablet 02/02/21 Unknown Rx Active Meds: Active Medications Acetaminophen (Acetaminophen 325 Mg Tab) 650 mg PO Q4H PRN PRN Reason: Pain MILD(1-3)/Fever >100.5/MELCHOR Acetaminophen (Acetaminophen 325 Mg Tab) 650 mg PO Q4H PRN PRN Reason: Pain MILD(1-3)/Fever >100.5/MELCHOR Dextrose (Dextrose 50% In Water (25gm) 50 Ml Syringe) 50 ml IV Q30MIN PRN; Protocol PRN Reason: Hypoglycemia Sodium Chloride (Nacl 0.9% 1000 Ml) 1,000 mls @ 999 mls/hr IV BOLUS ONE Stop: 02/08/21 23:35 Levofloxacin/Dextrose (Levaquin 500mg/100ml) 500 mg in 100 mls @ 100 mls/hr IV ONCE ONE; Protocol Stop: 02/08/21 23:46 Sodium Chloride (Nacl 0.9% 1000 Ml) 1,000 mls @ 125 mls/hr IV DIRECT ROSALEE Insulin Human Lispro (Insulin Lispro 100 Unit/Ml) 0 unit SUB-Q ACHS ROSALEE; Protocol Magnesium Hydroxide (Magnesium Hydroxide (Mom) Oral Liqd Udc) 30 ml PO Q4H PRN PRN Reason: Constipation Morphine Sulfate (Morphine 2 Mg/1 Ml Inj) 2 mg IV Q4H PRN PRN Reason: Pain, Moderate (4-6) Morphine Sulfate (Morphine 4 Mg/1 Ml Inj) 4 mg IV Q4H PRN PRN Reason: Pain , Severe (7-10) Ondansetron HCl (Ondansetron 4 Mg/2 Ml Inj) 4 mg IV Q8H PRN PRN Reason: Nausea And Vomiting Ondansetron HCl (Ondansetron 4 Mg/2 Ml Inj) 4 mg IV Q8H PRN PRN Reason: Nausea And Vomiting Sodium Chloride (Sodium Chloride 0.9% 10 Ml Flush Syringe) 10 ml IV BID ROSALEE Sodium Chloride (Sodium Chloride 0.9% 10 Ml Flush Syringe) 10 ml IV PRN PRN PRN Reason: LINE FLUSH Sodium Chloride (Sodium Chloride 0.9% 10 Ml Flush Syringe) 10 ml IV BID ROSALEE Sodium Chloride (Sodium Chloride 0.9% 10 Ml Flush Syringe) 10 ml IV PRN PRN PRN Reason: LINE FLUSH Review of Systems Constitutional: no fever, no chills Ears, nose, mouth and throat: no nasal congestion, no sore throat Cardiovascular: no chest pain, no palpitations Respiratory: no cough, no shortness of breath Gastrointestinal: no abdominal pain, no nausea, no vomiting, no diarrhea Genitourinary Female: no pelvic pain, no flank pain, no dysuria, no hematuria Musculoskeletal: low back pain, no neck pain Integumentary: no rash, no pruritis Neurological: no headaches, no confusion Psychiatric: no anxiety, no depression Endocrine: no polyphagia, no polydipsia, no polyuria, no nocturia Exam - Constitutional Vitals: Temp Pulse Resp BP Pulse Ox 97.8 F 89 19 134/71 99 02/08/21 17:03 02/08/21 18:28 02/08/21 18:28 02/08/21 18:28 02/08/21 18:28 General appearance: Present: no acute distress, well-nourished - EENT Eyes: Present: PERRL, EOM intact. Absent: scleral icterus ENT: hearing intact, clear oral mucosa, dentition normal - Neck Neck: Present: supple, normal ROM - Respiratory Respiratory effort: normal Respiratory: right: diminished - Cardiovascular Rhythm: regular Heart Sounds: Present: S1 & S2. Absent: systolic murmur, diastolic murmur - Extremities Extremities: no ischemia, pulses intact, pulses symmetrical, No edema, normal temperature, normal color, Full ROM Peripheral Pulses: within normal limits - Abdominal General gastrointestinal: Present: soft, non-tender, non-distended, normal bowel sounds. Absent: mass - Integumentary Integumentary: Present: clear, warm, dry - Musculoskeletal Musculoskeletal: strength equal bilaterally - Psychiatric Psychiatric: appropriate mood/affect, intact judgment & insight, memory intact - Neurologic Neurologic: CNII-XII intact, no focal deficits, moves all extremities Results - Labs CBC & Chem 7: 02/08/21 18:23 02/08/21 18:23 Labs: Abnormal lab results 02/08/21 02/08/21 Range/Units 18:23 18:23 PT 12.1 L (12.2-14.9) Sec. INR 0.85 L (0.87-1.13) APTT 24.1 L (24.2-36.6) Sec. Sodium 136 L (137-145) mmol/L Carbon Dioxide 21 L (22-30) mmol/L BUN 25 H (7-17) mg/dL Glucose 532 H* (65-100) mg/dL Calcium 8.0 L (8.4-10.2) mg/dL Alkaline Phosphatase 163 H (35-129) units/L Total Protein 6.0 L (6.3-8.2) g/dL Albumin 3.5 L (3.9-5) g/dL Assessment and Plan - Patient Problems (1) Hyperglycemia due to diabetes mellitus Current Visit: Yes Status: Acute Plan to address problem: Patient placed on sliding scale insulin and IV fluid. We will monitor Accu-Cheks closely. (2) Low back pain Current Visit: Yes Status: Acute Plan to address problem: Patient placed on analgesic medication as needed. (3) Metabolic acidosis Current Visit: Yes Status: Acute Plan to address problem: Possibly secondary to the diabetes mellitus. We will continue on insulin and IV fluid and monitor chemistry. (4) UTI (urinary tract infection) Current Visit: No Status: Acute Qualifiers: Urinary tract infection type: acute cystitis Hematuria presence: with hematuria Qualified Code(s): N30.01 - Acute cystitis with hematuria Plan to address problem: Recent urine culture grew E. coli. We will place on empiric IV antibiotics. (5) DVT prophylaxis Current Visit: No Status: Acute Plan to address problem: Patient placed on subcutaneous heparin.
[2021-02-09 01:03] LABS: BUN/Creatinine Ratio 23
[2021-02-09 02:46] LABS: Blood Urea Nitrogen 23 mg/dL (7-17)
[2021-02-09] MEDS ORDERED: NON-FORMULARY EACH (Baclofen [Baclofen] 20 MG Tablet) PO PRN (06:43)
[2021-02-09] MEDS ORDERED: hydrALAZINE 25 MG TAB PO SCH (08:00)
[2021-02-09] MEDS ORDERED: BACLOFEN 10 MG TAB PO PRN (08:00)
[2021-02-09] MEDS ORDERED: INSULIN NPH/REGULAR 70/30 INJ SUB-Q SCH (08:30)
[2021-02-09] MEDS: INSULIN LISPRO 100 UNIT/ML SUB-Q SCH ×2 (08:39→12:04)
[2021-02-09] MEDS: busPIRone 5 MG TAB PO SCH ×2 (08:39→15:19)
[2021-02-09] MEDS: GABAPENTIN 300 MG CAP PO SCH ×2 (08:39→15:18)
[2021-02-09] MEDS: hydrALAZINE 25 MG TAB PO SCH ×2 (08:49→15:18)
[2021-02-09] MEDS ORDERED: amLODIPine 10 MG TAB PO SCH (10:00)
[2021-02-09] MEDS ORDERED: ASPIRIN EC 81 MG TAB PO SCH (10:00)
[2021-02-09] MEDS ORDERED: CLOPIDOGREL 75 MG TAB PO SCH (10:00)
[2021-02-09] MEDS ORDERED: METOPROLOL TARTRATE 25 MG TAB PO SCH (10:00)
[2021-02-09] MEDS ORDERED: amLODIPine 5 MG TAB PO SCH ×2 (10:00)
[2021-02-09] MEDS ORDERED: LEVOTHYROXINE 50 MCG TAB PO SCH (10:00)
[2021-02-09 10:04] LABS: Basophils # (Auto) 0.1 K/mm3 (0.0-0.1); Eosinophils # (Auto) 0.3 K/mm3 (0.0-0.4); Eosinophils % (Auto) 5.3 % (0.0-4.3); Hematocrit 34.9 % (30.3-42.9); Hemoglobin 11.7 gm/dl (10.1-14.3); Lymphocytes # (Auto) 1.7 K/mm3 (1.2-5.4); Lymphocytes % (Auto) 32.2 % (13.4-35.0); Mean Corpuscular HGB Conc 34 % (30-34); Mean Corpuscular Volume 89 fl (79-97); Monocytes # (Auto) 0.3 K/mm3 (0.0-0.8); Monocytes % (Auto) 5.3 % (0.0-7.3); Platelet Count 238 K/mm3 (140-440); Red Blood Count 3.91 M/mm3 (3.65-5.03); Red Cell Distribution Width 13.9 % (13.2-15.2)
[2021-02-09 10:17] LABS: BUN/Creatinine Ratio 29; Blood Urea Nitrogen 23 mg/dL (7-17); Calcium 8.5 mg/dL (8.4-10.2); Hemolysis Index 7
[2021-02-09 10:26] LABS: INR 1.05 (0.87-1.13)
--- NOTE | 2021-02-09 10:38 | Discharge Summary ---
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 Pain has been waxing and waning and is nonradiating. Patient denies any fever or chills, no chest pain or shortness of breath, no nausea vomiting, no abdominal pain. Patient was recently seen here in this hospital and he had UTI with urine cultures done and was prescribed some antibiotics but indicates she has not been able to fill the antibiotics. Work-up in the emergency room today reveals hyperglycemia with blood glucose in the 500s with anion gap of 20. Patient was given some IV fluid and also given some insulin in the emergency room. Patient is being admitted with hypoglycemia and intractable back pain. Patient seen and examined this morning improved. She states she ran out of her home medicines a week ago. Case management consulted to see if any assistance is available. Blood sugar was elevated and improved resumption of insulin. Prescription will be renewed. She understands the importance of compliance with her medications no new fever or leukocytosis noted at this time. Patient is stable for discharge. (1) Hyperglycemia due to diabetes mellitus (2) Low back pain (3) Metabolic acidosis (4) UTI (urinary tract infection) (5) [facility] resident (6) uses a wheelchair unknown reason why 7] CAD Disposition: DC-01 TO HOME OR SELFCARE Final Discharge Diagnosis (Prints w/discharge instructions): Metabolic acidosis with hyperglycemia Time spent for discharge: 35 minutes Core Measure Documentation - Palliative Care Palliative Care/ Comfort Measures: Not Applicable - Core Measures Any of the following diagnoses?: none Exam - Physical Exam Narrative exam: VITAL SIGNS: Reviewed. GENERAL: The patient appears normally developed, Vital signs as documented. HEAD: No signs of head trauma. EYES: Pupils are equal. Extraocular motions intact. EARS: Hearing grossly intact. MOUTH: Oropharynx is normal. NECK: No adenopathy, no JVD. CHEST: Chest with clear breath sounds bilaterally. No wheezes, rales, or rhonchi. CARDIAC: Regular rate and rhythm. S1 and S2, without murmurs, gallops, or rubs. VASCULAR: No Edema. Peripheral pulses normal and equal in all extremities. ABDOMEN: Soft, non tender and non distended. No rebound or guarding, and no masses palpated. Bowel Sounds normal. MUSCULOSKELETAL: Good range of motion of all major joints. Extremities without clubbing, cyanosis or edema. NEUROLOGIC EXAM: Alert and oriented x 3 No focal sensory or strength deficits. Speech normal. Follows commands. PSYCHIATRIC: Mood normal. SKIN: detail exam as documented in skin assessment - Constitutional Vitals: Temp Pulse Resp BP Pulse Ox 98.2 F 63 20 176/84 96 02/09/21 03:53 02/09/21 08:49 02/09/21 03:53 02/09/21 08:49 02/09/21 03:53 Plan Activity: advance as tolerated, fall precautions Diet: low fat, diabetic Special Instructions: record daily weights, record daily BP diary, record blood sugar diary Follow up with: PRIMARY CARE, [Primary Care Provider] - 3-5 Days BELIA TOURE MD [Staff Physician] - 7 Days Prescriptions: AtorvaSTATin [Lipitor] 40 mg PO QHS #30 Aspirin [Adult Aspirin] 81 mg PO QDAY #30 amLODIPine 10 mg PO DAILY #30 tablet hydrALAZINE [Apresoline TAB] 25 mg PO TID #90 busPIRone [Buspar] 5 mg PO TID #90 Ciprofloxacin HCl 500 mg PO Q12H #14 tablet Nicotine [Habitrol] 21 mg TD QDAY #14 patch Insulin Regular, Human [HumuLIN R] 0 unit SQ AC #1 vial Baclofen [Lioresal] 20 mg PO Q12HR PRN #10 tablet PRN Reason: Muscle Spasm Metoprolol [Lopressor TAB] 25 mg PO QDAY #30 Insulin NPH/Regular [NovoLIN 70/30] 35 unit SUB-Q BIDDIAB #10 ml Clopidogrel [Plavix] 75 mg PO QDAY #30 Levothyroxine [Synthroid] 50 mcg PO QDAY #30
[2021-02-09 18:51] VITALS: BP 142/61
[2021-02-09] MEDS ORDERED: traZODone 50 MG TAB PO SCH (22:00)
[2021-02-09] MEDS ORDERED: SENNOSIDES/DOCUSATE SODIUM 8.6/50 MG TAB PO SCH (22:00)
== END 2021-02-09 19:56 | disposition home or self-care (01) ==
LOC: ED 15:59 → 3A 22:55
PROVIDERS: ADMIT Internal Medicine Geriatric Medicine; ATTEND Internal Medicine
DX: E87.2 Acidosis (principal); E11.65 Type 2 diabetes mellitus with hyperglycemia; M54.5 Low back pain; N39.0 Urinary tract infection, site not specified; I25.10 Atherosclerotic heart disease of native coronary artery without angina pectoris; J44.9 Chronic obstructive pulmonary disease, unspecified; I10 Essential (primary) hypertension; B96.29 Other Escherichia coli [E. coli] as the cause of diseases classified elsewhere; Z79.899 Other long term (current) drug therapy; Z98.890 Other specified postprocedural states; Z79.82 Long term (current) use of aspirin; Z95.1 Presence of aortocoronary bypass graft; Z79.4 Long term (current) use of insulin
CPT/HCPCS: 36415; 80048; 80053; 81001; 82805; 82962; 83690; 83735; 85025; 85610; 85730; 96361; 96365; 96375; 99284; G0378; J1956; J7030; J1815

== ENCOUNTER 2021-02-21 23:47 | Emergency (ER) | payer MEDICARE ==
[2021-02-22 08:06] LABS: Basophils # (Auto) 0.1 K/mm3 (0.0-0.1); Basophils % (Auto) 0.7 % (0.0-1.8); Eosinophils # (Auto) 0.3 K/mm3 (0.0-0.4); Hematocrit 40.8 % (30.3-42.9); Lymphocytes # (Auto) 1.9 K/mm3 (1.2-5.4); Lymphocytes % (Auto) 18.6 % (13.4-35.0); Mean Corpuscular HGB Conc 34 % (30-34); Mean Corpuscular Volume 90 fl (79-97); Monocytes # (Auto) 0.9 K/mm3 (0.0-0.8); Monocytes % (Auto) 8.8 % (0.0-7.3); Platelet Count 243 K/mm3 (140-440); Red Blood Count 4.55 M/mm3 (3.65-5.03); Red Cell Distribution Width 14.3 % (13.2-15.2)
[2021-02-22 08:46] LABS: Albumin 4.2 g/dL (3.9-5); Calcium 9.5 mg/dL (8.4-10.2)
[2021-02-22 09:56] LABS: Bilirubin,Urine NEG (Negative); Blood,Urine SM (Negative); Color,Urine Straw (Yellow); Mucus,Urine FEW /HPF; Urobilinogen,Urine < 2.0 mg/dL (<2.0)
[2021-02-22] MEDS ORDERED: INSULIN REGULAR, HUMAN 100 UNITS/1 ML IV ONE (16:52)
[2021-02-22] MEDS ORDERED: SODIUM CHLORIDE 0.9% 1000 ML 1,000 ML IV ONE (16:52)
--- NOTE | 2021-02-22 18:20 | Emergency Department Report ---
ED General Adult HPI - General Chief complaint: Hyperglycemia Stated complaint: HYPERGLYCEMIA, BILATERAL FOOT PAIN Time Seen by Provider: 02/22/21 16:42 Source: patient Mode of arrival: Ambulatory Limitations: No Limitations - History of Present Illness Initial comments: 70-year-old female, history of hypertension, presents to ED with elevated glucose. Patient states she has been unable to check her insulin because she is out of her house. Patient also complaining of some right hip pain. 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] Gabapentin 600 mg PO TID #90 cap 12/26/20 Unknown Rx traZODone [Desyrel] 150 mg PO QHS #90 12/26/20 Unknown Rx Albuterol Mdi (or & Nicu Only) 2 puff IH QID PRN #8.5 gram 01/05/21 Unknown Rx [ProAir HFA Inhaler] Sennosides/Docusate Sodium [Senna 1 each PO QHS #12 tablet 01/27/21 Unknown Rx Plus 8.6-50 mg Tablet] Aspirin [Adult Aspirin] 81 mg PO QDAY #30 02/09/21 Unknown Rx AtorvaSTATin [Lipitor] 40 mg PO QHS #30 02/09/21 Unknown Rx Baclofen [Lioresal] 20 mg PO Q12HR PRN #10 tablet 02/09/21 Unknown Rx Ciprofloxacin HCl 500 mg PO Q12H #14 tablet 02/09/21 Unknown Rx Clopidogrel [Plavix] 75 mg PO QDAY #30 02/09/21 Unknown Rx Insulin NPH/Regular [Novolin 70/30] 20 unit SUB-Q BIDAC #10 ml 02/09/21 Unknown Rx Insulin Regular, Human [HumuLIN R] 0 unit SQ AC #1 vial 02/09/21 Unknown Rx Levothyroxine [Synthroid] 50 mcg PO QDAY #30 02/09/21 Unknown Rx Metoprolol [Lopressor TAB] 25 mg PO QDAY #30 02/09/21 Unknown Rx Nicotine [Habitrol] 21 mg TD QDAY #14 patch 02/09/21 Unknown Rx amLODIPine 10 mg PO DAILY #30 tablet 02/09/21 Unknown Rx busPIRone [Buspar] 5 mg PO TID #90 02/09/21 Unknown Rx hydrALAZINE [Apresoline TAB] 25 mg PO TID #90 02/09/21 Unknown Rx Allergies Allergy/AdvReac Type Severity Reaction Status Date / Time codeine Allergy Unknown Verified 02/08/21 17:00 Penicillins Allergy Unknown Verified 02/08/21 17:00 ED Review of Systems ROS: Stated complaint: HYPERGLYCEMIA, BILATERAL FOOT PAIN Other details as noted in HPI Comment: All other systems reviewed and negative Constitutional: denies: fever Cardiovascular: denies: chest pain Gastrointestinal: denies: nausea, vomiting Genitourinary: denies: dysuria, frequency Musculoskeletal: as per HPI ED Past Medical Hx - Past Medical History Previous Medical History?: Yes Hx Hypertension: Yes Hx Heart Attack/AMI: Yes (stent x2) Hx Congestive Heart Failure: No Hx Diabetes: Yes Hx Asthma: Yes Hx COPD: Yes Additional medical history: Coronary artery disease, thyroid cancer - Surgical History Hx Coronary Stent: Yes (Stents x 2) Additional Surgical History: Partial Thyroid Removal due to Cancer - Social History Smoking Status: Never Smoker Substance Use Type: None - Medications Home Medications: Home Medications Medication Instructions Recorded Confirmed Last Taken Type Diabetic Supplies,Miscell [Cequr 1 each MC BID #1 miscell 12/26/20 02/09/21 Unknown 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] Gabapentin 600 mg PO TID #90 cap 12/26/20 02/09/21 Unknown Rx traZODone [Desyrel] 150 mg PO QHS #90 12/26/20 02/09/21 Unknown Rx Albuterol Mdi (or & Nicu Only) 2 puff IH QID PRN #8.5 gram 01/05/21 02/09/21 Unknown Rx [ProAir HFA Inhaler] Sennosides/Docusate Sodium [Senna 1 each PO QHS #12 tablet 01/27/21 02/09/21 Unknown Rx Plus 8.6-50 mg Tablet] Aspirin [Adult Aspirin] 81 mg PO QDAY #30 02/09/21 Unknown Rx AtorvaSTATin [Lipitor] 40 mg PO QHS #30 02/09/21 Unknown Rx Baclofen [Lioresal] 20 mg PO Q12HR PRN #10 tablet 02/09/21 Unknown Rx Ciprofloxacin HCl 500 mg PO Q12H #14 tablet 02/09/21 Unknown Rx Clopidogrel [Plavix] 75 mg PO QDAY #30 02/09/21 Unknown Rx Insulin NPH/Regular [Novolin 70/30] 20 unit SUB-Q BIDAC #10 ml 02/09/21 Unknown Rx Insulin Regular, Human [HumuLIN R] 0 unit SQ AC #1 vial 02/09/21 Unknown Rx Levothyroxine [Synthroid] 50 mcg PO QDAY #30 02/09/21 Unknown Rx Metoprolol [Lopressor TAB] 25 mg PO QDAY #30 02/09/21 Unknown Rx Nicotine [Habitrol] 21 mg TD QDAY #14 patch 02/09/21 Unknown Rx amLODIPine 10 mg PO DAILY #30 tablet 02/09/21 Unknown Rx busPIRone [Buspar] 5 mg PO TID #90 02/09/21 Unknown Rx hydrALAZINE [Apresoline TAB] 25 mg PO TID #90 02/09/21 Unknown Rx ED Physical Exam - General Limitations: No Limitations General appearance: alert, in no apparent distress - Head Head exam: Present: atraumatic, normocephalic - Eye Eye exam: Present: normal appearance, EOMI - ENT ENT exam: Present: mucous membranes moist - Neck Neck exam: Present: normal inspection - Respiratory Respiratory exam: Present: normal lung sounds bilaterally. Absent: respiratory distress - Cardiovascular Cardiovascular Exam: Present: regular rate, normal rhythm - GI/Abdominal GI/Abdominal exam: Present: soft. Absent: distended, tenderness - Extremities Exam Extremities exam: Present: other (No swelling to bilateral lower extremities; flexion/extension intact in bilateral knees and hips; slight tenderness to right hip) - Neurological Exam Neurological exam: Present: alert, oriented X3 - Psychiatric Psychiatric exam: Present: normal affect, normal mood - Skin Skin exam: Present: warm, dry, intact, normal color, ecchymosis ED Course Vital Signs 02/22/21 02/22/21 02/22/21 02:10 08:38 15:43 Temperature 98.3 F 98 F Pulse Rate 103 H 108 H 97 H Respiratory 18 18 16 Rate Blood Pressure 171/81 112/85 Blood Pressure 140/80 [Right] O2 Sat by Pulse 97 98 97 Oximetry 02/22/21 02/22/21 02/22/21 15:49 15:51 16:01 Temperature Pulse Rate 84 Respiratory 14 18 12 Rate Blood Pressure 160/78 Blood Pressure [Right] O2 Sat by Pulse 98 97 96 Oximetry 02/22/21 02/22/21 02/22/21 16:15 16:31 16:45 Temperature Pulse Rate 89 81 85 Respiratory 13 13 13 Rate Blood Pressure 160/78 169/84 169/84 Blood Pressure [Right] O2 Sat by Pulse 95 96 96 Oximetry 02/22/21 02/22/21 02/22/21 17:01 17:07 17:15 Temperature Pulse Rate 90 92 H 97 H Respiratory 14 18 14 Rate Blood Pressure 154/87 154/87 Blood Pressure 154/87 [Right] O2 Sat by Pulse 96 99 96 Oximetry 02/22/21 02/22/21 02/22/21 17:31 17:45 18:01 Temperature Pulse Rate 101 H 101 H 100 H Respiratory 13 14 13 Rate Blood Pressure 114/66 114/66 124/67 Blood Pressure [Right] O2 Sat by Pulse 95 96 95 Oximetry 02/22/21 02/22/21 02/22/21 18:15 18:31 18:45 Temperature Pulse Rate 97 H 94 H 87 Respiratory 12 16 13 Rate Blood Pressure 124/67 122/68 122/68 Blood Pressure [Right] O2 Sat by Pulse 98 98 99 Oximetry 02/22/21 02/22/21 02/22/21 19:01 19:15 19:31 Temperature Pulse Rate 90 87 90 Respiratory 10 L 16 19 Rate Blood Pressure 132/75 132/75 128/80 Blood Pressure [Right] O2 Sat by Pulse 98 97 98 Oximetry 02/22/21 02/22/21 02/22/21 19:45 20:01 20:15 Temperature Pulse Rate 80 81 81 Respiratory 13 14 12 Rate Blood Pressure 128/80 134/68 134/68 Blood Pressure [Right] O2 Sat by Pulse 96 92 96 Oximetry 02/22/21 02/22/21 20:31 20:47 Temperature Pulse Rate 82 Respiratory 12 Rate Blood Pressure 146/77 146/77 Blood Pressure [Right] O2 Sat by Pulse 96 Oximetry ED Medical Decision Making - Lab Data Result diagrams: 02/22/21 07:48 02/22/21 07:48 - EKG Data -: EKG Interpreted by Me EKG shows normal: sinus rhythm, axis, QRS complexes, ST-T waves Rate: normal - EKG Data Interpretation: LVH, other (LAFB, prolonged LA) - Radiology Data Radiology results: report reviewed, image reviewed - Medical Decision Making 70-year-old female, history of diabetes, presents to ED with elevated glucose and right hip pain. Glucose initially 582, without evidence of DKA. Patient was given IV fluids and insulin. Glucose eventually came down to 187. Patient also complained of some right hip pain. X-ray was done which is negative for any acute findings. Remainder of labs are unremarkable. EKG shows no ST changes. Patient will be discharged at this time. Outpatient follow-up advised, return precautions given. - Differential Diagnosis Hyperglycemia, DKA Critical care attestation.: If time is entered above; I have spent that time in minutes in the direct care of this critically ill patient, excluding procedure time. ED Disposition Clinical Impression: Hyperglycemia, Right hip pain Disposition: DC-01 TO HOME OR SELFCARE Is pt being admited?: No Condition: Stable Instructions: Type 2 Diabetes Mellitus, Self Care, Adult, [id number] Referrals: MIHIR GREER [Other] - 3-5 Days Time of Disposition: 20:10
--- NOTE | 2021-02-22 19:07 | XRay Report ---
XR hip 2-3V RT INDICATION / CLINICAL INFORMATION: DIFFICULTY WALKING RT HIP PAIN. COMPARISON: None available. FINDINGS: BONES/JOINT(S): No acute fracture or subluxation. Mild bilateral hip DJD. No focal bone lesions. SOFT TISSUES: No significant abnormality. ADDITIONAL FINDINGS: None. Signer Name: Jerry Gresham MD Signed: 02/22/2021 7:03 PM Workstation Name: [id number]
[2021-02-22 21:00] VITALS: BP 146/77
--- NOTE | 2021-02-23 11:01 | Electrocardiograph Report ---
[facility] Test Date: 2021-02-22 Test Time: 08:42:42 Pat Name: FABIENNE ARMENDARIZ Department: Room: Gender: F Gis Geographer: CECI MCDONOUGHB: 1950 Requested By: ED DOC Order Number: [id number] Reading MD: Marisa Paredes Measurements Intervals [place] Rate: 99 P: 44 HI: 238 QRS: -48 QRSD: 84 T: 104 QT: 363 QTc: 467 Interpretive Statements Sinus rhythm Prolonged HI interval Left anterior fascicular block LVH with secondary repolarization abnormality Anterior Q waves, possibly due to LVH Compared to ECG 01/22/2021 09:16:32 No significant change Electronically Signed On 02-23-2021 11:01:11 EDT by Marisa Paredes
== END 2021-02-22 20:30 | disposition home or self-care (01) ==
LOC: ED 23:47
DX: E11.65 Type 2 diabetes mellitus with hyperglycemia (principal); M25.551 Pain in right hip; I10 Essential (primary) hypertension; J44.9 Chronic obstructive pulmonary disease, unspecified; Z88.5 Allergy status to narcotic agent; Z88.0 Allergy status to penicillin; Z79.4 Long term (current) use of insulin; Z79.899 Other long term (current) drug therapy; Z79.82 Long term (current) use of aspirin
CPT/HCPCS: 36415; 73502; 80053; 81001; 82805; 82962; 84484; 85025; 87086; 93005; 96361; 96374; 99284; J7030; J1815

== ENCOUNTER 2021-02-23 17:02 | Inpatient (IN) | payer MEDICAID, MEDICARE ==
--- NOTE | 2021-02-23 18:57 | Emergency Department Report ---
HPI - General Chief Complaint: Extremity Injury, Lower Time Seen by Provider: 02/23/21 18:32 - HPI HPI: 70-year-old female with history of hypertension, CAD, DM 2, and thyroid cancer in the past status post partial thyroidectomy is brought in from the waiting room after the patient experienced a syncopal episode and hit the back of her head. The patient was here in our emergency department yesterday seen for hyperglycemia and right hip pain. She was assessed and her hyperglycemia was treated and she was eventually discharged earlier today. However the patient states that she had nowhere to go because she is homeless and missed her transportation to a senior care and so she was sitting outside the entrance to our hospital all day. At one point she went to the bathroom and after coming out of the bathroom she began to feel lightheaded and then blacked out. She woke up and was on the ground. Apparently she fell backwards and hit the back of her head and lost consciousness for a few seconds. She denies experiencing any preceding chest pain, shortness of breath, diaphoresis, palpitations, or any other symptoms other than lightheadedness. She says she takes aspirin and Plavix but is not on an anticoagulant. At present her only complaint is mild headache centered in the back of her head. She denies any vision changes, neck pain, back pain, hip pain, lower extremity pain, upper extremity pain, chest pain, cough, shortness of breath, abdominal pain, nausea/vomiting, or any other complaint. When I asked her why she came for evaluation yesterday she stated that she has not felt well for the past several days and has been unable to afford food or insulin. When asked about any specific symptoms however, she states that she "just did not feel well". She did say that she has been experiencing dysuria for the past several days. She denies experiencing any fever/chills, cough, loss of taste/smell, congestion, rhinorrhea, shortness of breath, or any other symptoms. She is not vaccinated against COVID-19. ED Past Medical Hx - Past Medical History Hx Hypertension: Yes Hx Heart Attack/AMI: Yes (stent x2) Hx Congestive Heart Failure: No Hx Diabetes: Yes Hx Asthma: Yes Hx COPD: Yes Additional medical history: Coronary artery disease, thyroid cancer - Surgical History Hx Coronary Stent: Yes (Stents x 2) Additional Surgical History: Partial Thyroid Removal due to Cancer - Social History Smoking Status: Never Smoker Substance Use Type: None - Medications Home Medications: Home Medications Medication Instructions Recorded Confirmed Last Taken Type Diabetic Supplies,Miscell [Cequr 1 each MC BID #1 miscell 12/26/20 02/09/21 Unknown 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] Gabapentin 600 mg PO TID #90 cap 12/26/20 02/09/21 Unknown Rx traZODone [Desyrel] 150 mg PO QHS #90 12/26/20 02/09/21 Unknown Rx Albuterol Mdi (or & Nicu Only) 2 puff IH QID PRN #8.5 gram 01/05/21 02/09/21 Unknown Rx [ProAir HFA Inhaler] Sennosides/Docusate Sodium [Senna 1 each PO QHS #12 tablet 01/27/21 02/09/21 Unknown Rx Plus 8.6-50 mg Tablet] Aspirin [Adult Aspirin] 81 mg PO QDAY #30 02/09/21 Unknown Rx AtorvaSTATin [Lipitor] 40 mg PO QHS #30 02/09/21 Unknown Rx Baclofen [Lioresal] 20 mg PO Q12HR PRN #10 tablet 02/09/21 Unknown Rx Ciprofloxacin HCl 500 mg PO Q12H #14 tablet 02/09/21 Unknown Rx Clopidogrel [Plavix] 75 mg PO QDAY #30 02/09/21 Unknown Rx Insulin NPH/Regular [Novolin 70/30] 20 unit SUB-Q BIDAC #10 ml 02/09/21 Unknown Rx Insulin Regular, Human [HumuLIN R] 0 unit SQ AC #1 vial 02/09/21 Unknown Rx Levothyroxine [Synthroid] 50 mcg PO QDAY #30 02/09/21 Unknown Rx Metoprolol [Lopressor TAB] 25 mg PO QDAY #30 02/09/21 Unknown Rx Nicotine [Habitrol] 21 mg TD QDAY #14 patch 02/09/21 Unknown Rx amLODIPine 10 mg PO DAILY #30 tablet 02/09/21 Unknown Rx busPIRone [Buspar] 5 mg PO TID #90 02/09/21 Unknown Rx hydrALAZINE [Apresoline TAB] 25 mg PO TID #90 02/09/21 Unknown Rx ED Review of Systems ROS: Stated complaint: BLISTERS ON FEET Other details as noted in HPI Constitutional: denies: chills, fever Eyes: denies: eye pain, vision change ENT: denies: throat pain, congestion Respiratory: denies: cough, shortness of breath Cardiovascular: syncope. denies: chest pain, palpitations Gastrointestinal: denies: abdominal pain, nausea, vomiting Genitourinary: dysuria. denies: frequency, hematuria Musculoskeletal: denies: back pain, joint swelling Skin: denies: rash, lesions Neurological: headache. denies: weakness, numbness, paresthesias Psychiatric: denies: anxiety Physical Exam - Physical Exam Vital Signs: Vital Signs 02/23/21 17:22 Temperature 98.7 F Pulse Rate 97 H Respiratory 20 Rate Blood Pressure 145/79 [Right] Physical Exam: GENERAL: Well developed and well nourished. No acute distress HEAD: Normocephalic. Possible contusion to the posterior occiput. No abrasions or lacerations. ENT: Very dry mucous membranes with dried snuff seen present in the mouth. No septal hematoma. No goins sign. No hemotympanum. EYES: Extraocular movements are intact. Pupils are equal round and reactive to light bilaterally NECK: C-collar is in place. C-collar was removed while holding in line stabilization and the patient has no midline tenderness. C-collar was reapplied. Trachea is midline. LUNGS: Nonlabored breathing. Equal chest rise bilaterally. Clear to auscultation bilaterally. CARDIOVASCULAR: Regular rate and rhythm. No murmurs or rubs. VASCULAR: Cap refill < 2 seconds. 2+ pitting edema of the bilateral lower extremities. Some superficial blistering seen to the distal lower extremities. ABDOMEN: Abdomen is soft and nondistended. There is no significant tenderness, guarding or rebound. SKIN: Skin is warm and dry NEURO: Patient is awake, alert, and oriented. 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 No focal deficits. Normal motor and sensory exam throughout. Normal speech. MUSCULOSKELETAL: No obvious deformities. No significant tenderness. Normal ROM throughout. BACK/SPINE: No midline tenderness or step-offs of the C/T/L spine. No costovertebral angle tenderness. ED Course Vital Signs 02/23/21 17:22 Temperature 98.7 F Pulse Rate 97 H Respiratory 20 Rate Blood Pressure 145/79 [Right] ED Medical Decision Making - Lab Data Result diagrams: 02/24/21 04:54 02/24/21 15:06 Lab Results 02/23/21 02/23/21 02/23/21 Range/Units 18:30 18:55 18:55 WBC 5.8 (4.5-11.0) K/mm3 RBC 4.49 (3.65-5.03) M/mm3 Hgb 13.7 (10.1-14.3) gm/dl Hct 41.0 (30.3-42.9) % MCV 91 (79-97) fl MCH 31 (28-32) pg MCHC 34 (30-34) % RDW 14.8 (13.2-15.2) % Plt Count 203 (140-440) K/mm3 Lymph % (Auto) 13.9 (13.4-35.0) % [place] % (Auto) 8.0 H (0.0-7.3) % Eos % (Auto) 2.2 (0.0-4.3) % Baso % (Auto) 0.6 (0.0-1.8) % Lymph # (Auto) 0.8 L (1.2-5.4) K/mm3 [place] # (Auto) 0.5 (0.0-0.8) K/mm3 Eos # (Auto) 0.1 (0.0-0.4) K/mm3 Baso # (Auto) 0.0 (0.0-0.1) K/mm3 Seg Neutrophils % 75.3 H (40.0-70.0) % Seg Neutrophils # 4.3 (1.8-7.7) K/mm3 PT 12.7 (12.2-14.9) Sec. INR 0.90 (0.87-1.13) APTT 23.8 L (24.2-36.6) Sec. VBG pH (7.320-7.420) Sodium (137-145) mmol/L Potassium (3.6-5.0) mmol/L Chloride (98-107) mmol/L Carbon Dioxide (22-30) mmol/L Anion Gap mmol/L BUN (7-17) mg/dL Creatinine (0.6-1.2) mg/dL Estimated GFR ml/min BUN/Creatinine Ratio % Glucose (65-100) mg/dL POC Glucose > 600 H (70-105) mg/dL Osmolality Mosm/kg Calcium (8.4-10.2) mg/dL Phosphorus (2.5-4.5) mg/dL Magnesium (1.7-2.3) mg/dL Total Bilirubin (0.1-1.2) mg/dL Direct Bilirubin (0-0.2) mg/dL Indirect Bilirubin mg/dL AST (5-40) units/L ALT (7-56) units/L Alkaline Phosphatase (35-129) units/L Troponin T (0.00-0.029) ng/mL NT-Pro-B Natriuret Pep (0-900) pg/mL Total Protein (6.3-8.2) g/dL Albumin (3.9-5) g/dL Albumin/Globulin Ratio % Lipase (13-60) units/L TSH (0.270-4.200) mlU/mL 02/23/21 02/23/21 02/23/21 Range/Units 18:55 18:55 18:55 WBC (4.5-11.0) K/mm3 RBC (3.65-5.03) M/mm3 Hgb (10.1-14.3) gm/dl Hct (30.3-42.9) % MCV (79-97) fl MCH (28-32) pg MCHC (30-34) % RDW (13.2-15.2) % Plt Count (140-440) K/mm3 Lymph % (Auto) (13.4-35.0) % [place] % (Auto) (0.0-7.3) % Eos % (Auto) (0.0-4.3) % Baso % (Auto) (0.0-1.8) % Lymph # (Auto) (1.2-5.4) K/mm3 [place] # (Auto) (0.0-0.8) K/mm3 Eos # (Auto) (0.0-0.4) K/mm3 Baso # (Auto) (0.0-0.1) K/mm3 Seg Neutrophils % (40.0-70.0) % Seg Neutrophils # (1.8-7.7) K/mm3 PT (12.2-14.9) Sec. INR (0.87-1.13) APTT (24.2-36.6) Sec. VBG pH 7.402 (7.320-7.420) Sodium 133 L (137-145) mmol/L Potassium 4.4 (3.6-5.0) mmol/L Chloride 97.8 L (98-107) mmol/L Carbon Dioxide 20 L D (22-30) mmol/L Anion Gap 20 mmol/L BUN 21 H (7-17) mg/dL Creatinine 1.1 (0.6-1.2) mg/dL Estimated GFR 49 ml/min BUN/Creatinine Ratio 19 % Glucose 632 H* (65-100) mg/dL POC Glucose (70-105) mg/dL Osmolality 319 Mosm/kg Calcium 8.5 (8.4-10.2) mg/dL Phosphorus (2.5-4.5) mg/dL Magnesium 2.00 (1.7-2.3) mg/dL Total Bilirubin 0.60 (0.1-1.2) mg/dL Direct Bilirubin < 0.2 (0-0.2) mg/dL Indirect Bilirubin 0.4 mg/dL AST 22 (5-40) units/L ALT 17 (7-56) units/L Alkaline Phosphatase 144 H (35-129) units/L Troponin T < 0.010 (0.00-0.029) ng/mL NT-Pro-B Natriuret Pep (0-900) pg/mL Total Protein 6.5 (6.3-8.2) g/dL Albumin 3.6 L (3.9-5) g/dL Albumin/Globulin Ratio 1.2 % Lipase 41 (13-60) units/L TSH (0.270-4.200) mlU/mL 02/23/21 02/23/21 02/23/21 Range/Units 18:55 20:04 20:07 WBC (4.5-11.0) K/mm3 RBC (3.65-5.03) M/mm3 Hgb (10.1-14.3) gm/dl Hct (30.3-42.9) % MCV (79-97) fl MCH (28-32) pg MCHC (30-34) % RDW (13.2-15.2) % Plt Count (140-440) K/mm3 Lymph % (Auto) (13.4-35.0) % [place] % (Auto) (0.0-7.3) % Eos % (Auto) (0.0-4.3) % Baso % (Auto) (0.0-1.8) % Lymph # (Auto) (1.2-5.4) K/mm3 [place] # (Auto) (0.0-0.8) K/mm3 Eos # (Auto) (0.0-0.4) K/mm3 Baso # (Auto) (0.0-0.1) K/mm3 Seg Neutrophils % (40.0-70.0) % Seg Neutrophils # (1.8-7.7) K/mm3 PT (12.2-14.9) Sec. INR (0.87-1.13) APTT (24.2-36.6) Sec. VBG pH (7.320-7.420) Sodium (137-145) mmol/L Potassium (3.6-5.0) mmol/L Chloride (98-107) mmol/L Carbon Dioxide (22-30) mmol/L Anion Gap mmol/L BUN (7-17) mg/dL Creatinine (0.6-1.2) mg/dL Estimated GFR ml/min BUN/Creatinine Ratio % Glucose (65-100) mg/dL POC Glucose > 600 H (70-105) mg/dL Osmolality Mosm/kg Calcium (8.4-10.2) mg/dL Phosphorus (2.5-4.5) mg/dL Magnesium (1.7-2.3) mg/dL Total Bilirubin (0.1-1.2) mg/dL Direct Bilirubin (0-0.2) mg/dL Indirect Bilirubin mg/dL AST (5-40) units/L ALT (7-56) units/L Alkaline Phosphatase (35-129) units/L Troponin T (0.00-0.029) ng/mL NT-Pro-B Natriuret Pep 375.7 (0-900) pg/mL Total Protein (6.3-8.2) g/dL Albumin (3.9-5) g/dL Albumin/Globulin Ratio % Lipase (13-60) units/L TSH 0.911 (0.270-4.200) mlU/mL 02/23/21 02/23/21 Range/Units 21:46 21:46 WBC (4.5-11.0) K/mm3 RBC (3.65-5.03) M/mm3 Hgb (10.1-14.3) gm/dl Hct (30.3-42.9) % MCV (79-97) fl MCH (28-32) pg MCHC (30-34) % RDW (13.2-15.2) % Plt Count (140-440) K/mm3 Lymph % (Auto) (13.4-35.0) % [place] % (Auto) (0.0-7.3) % Eos % (Auto) (0.0-4.3) % Baso % (Auto) (0.0-1.8) % Lymph # (Auto) (1.2-5.4) K/mm3 [place] # (Auto) (0.0-0.8) K/mm3 Eos # (Auto) (0.0-0.4) K/mm3 Baso # (Auto) (0.0-0.1) K/mm3 Seg Neutrophils % (40.0-70.0) % Seg Neutrophils # (1.8-7.7) K/mm3 PT (12.2-14.9) Sec. INR (0.87-1.13) APTT (24.2-36.6) Sec. VBG pH (7.320-7.420) Sodium 141 D (137-145) mmol/L Potassium 3.5 L D (3.6-5.0) mmol/L Chloride 104.0 (98-107) mmol/L Carbon Dioxide 24 (22-30) mmol/L Anion Gap 17 mmol/L BUN 20 H (7-17) mg/dL Creatinine 1.1 (0.6-1.2) mg/dL Estimated GFR 49 ml/min BUN/Creatinine Ratio 18 % Glucose 333 H (65-100) mg/dL POC Glucose (70-105) mg/dL Osmolality Mosm/kg Calcium 8.3 L (8.4-10.2) mg/dL Phosphorus 3.90 (2.5-4.5) mg/dL Magnesium 1.90 (1.7-2.3) mg/dL Total Bilirubin (0.1-1.2) mg/dL Direct Bilirubin (0-0.2) mg/dL Indirect Bilirubin mg/dL AST (5-40) units/L ALT (7-56) units/L Alkaline Phosphatase (35-129) units/L Troponin T (0.00-0.029) ng/mL NT-Pro-B Natriuret Pep (0-900) pg/mL Total Protein (6.3-8.2) g/dL Albumin (3.9-5) g/dL Albumin/Globulin Ratio % Lipase (13-60) units/L TSH (0.270-4.200) mlU/mL - EKG Data 02/24/21 20:32 Normal sinus rhythm. First-degree AV block. Left axis deviation. Left anterio r fascicular block. Otherwise normal intervals. No ectopy. No significant ST segment or T wave abnormalities. - Radiology Data CT HEAD WITHOUT CONTRAST INDICATION / CLINICAL INFORMATION: head trauma +LOC. TECHNIQUE: All CT scans at this location are performed using CT dose reduction for ALARA by means of automated exposure control. COMPARISON: Head CT 01/22/2021 FINDINGS: HEMORRHAGE: No evidence of intracranial hemorrhage or extra-axial fluid collection. EXTRA-AXIAL SPACES: Cortical sulci, sylvian fissures and basilar cisterns are within normal limits for size given the patient's age of 70 years. VENTRICULAR SYSTEM: The third and lateral ventricles are of normal size and configuration. CEREBRAL PARENCHYMA: Extensive periventricular and deep white matter lucencies noted compatible with advanced microvascular ischemic change. In addition small focal areas of decreased attenuation are seen in the head of the caudate nucleus on the left , in the left subinsular region and in the region of the posterior limb of the internal capsule on the left where remote small deep infarctions are suspected. Similar findings were present on previous study. MIDLINE SHIFT OR HERNIATION: There is no mass effect. CEREBELLUM / BRAINSTEM: Brainstem and cerebellum have an unremarkable appearance. MIDLINE STRUCTURES:No abnormalities of the pituitary gland or pineal region are identified. INTRACRANIAL VESSELS: Extensively calcified atherosclerotic plaque is seen along the course of the cavernous segments of both internal carotid arteries. Calcified plaque is also observed along the course of the distal right vertebral artery. ORBITS: Status post right-sided cataract surgery. No additional abnormality. SOFT TISSUES of HEAD: No significant abnormality. CALVARIUM: Evaluation of bone windows reveals no abnormalities. PARANASAL SINUSES / MASTOID AIR CELLS: Visualized portions of the paranasal sinuses are free from inflammatory mucosal disease. Mastoid air cells are normally pneumatized. ADDITIONAL FINDINGS: None. IMPRESSION: 1. Moderate microvascular ischemic change. 2. Remote small deep infarction is as described above. 3. No acute intracranial abnormality. Signer Name: Ryan Hughes MD Signed: 02/23/2021 7:34 PM Workstation Name: [id number] CT CERVICAL SPINE WITHOUT CONTRAST INDICATION / CLINICAL INFORMATION: Syncopal episode. Loss of consciousness. Neck injury. TECHNIQUE: Axial CT images were obtained through the cervical spine. Sagittal and coronal reformatted images were produced. All CT scans at this location are performed using CT dose reduction for ALARA by means of automated exposure control. COMPARISON: None available. FINDINGS: ALIGNMENT: Loss of the normal cervical lordosis is noted. No additional abnormality. No indication of traumatic subluxation. VERTEBRAE: No indication of fracture or bone destruction. DISC SPACES: Disc height is decreased at the C5-6, C6-7 and C7-T1 levels. DEGENERATIVE CHANGES: Widespread facet and uncovertebral arthropathy is noted resulting in multifocal neuroforaminal stenosis which is most pronounced at the C6 nerve root level bilaterally. CRANIOCERVICAL JUNCTION:No significant abnormality. SPINAL CANAL: Central spinal canal is adequately maintained throughout. PARASPINAL SOFT TISSUES: Postoperative changes are noted. Multiple surgical clips are seen in the vicinity of the thyroid gland status post right hemithyroidectomy. Correlation with surgical history is advised. ADDITIONAL FINDINGS: None. LUNG APICES: No significant abnormality of visualized lungs. IMPRESSION: 1. No indication of fracture or traumatic subluxation. 2. Widespread cervical spondylosis. Signer Name: Ryan Hughes MD Signed: 02/23/2021 7:39 PM Workstation Name: [id number] CHEST 2 VIEWS INDICATION / CLINICAL INFORMATION: hyperglycemia, syncope. COMPARISON: 01/15/2021 FINDINGS: Patient is rotated SUPPORT DEVICES: None. HEART / MEDIASTINUM: No significant abnormality. LUNGS / PLEURA: No acute pulmonary o r pleural abnormality is identified. There is mild elevation right hemidiaphragm. No pneumothorax. ADDITIONAL FINDINGS: No significant additional findings. IMPRESSION: 1. No significant change. Signer Name: Vinicius Guillen MD Signed: 02/23/2021 6:22 PM Workstation Name: [id number] DUPLEX DOPPLER LOWER EXTREMITY VEINS, BILATERAL INDICATION / CLINICAL INFORMATION: swelling and pain. TECHNIQUE: Duplex doppler imaging was performed through the veins of both lower extremities using venous compression and other maneuvers. COMPARISON: None available. FINDINGS: RIGHT COMMON FEMORAL VEIN: Negative. RIGHT FEMORAL VEIN: Negative. RIGHT POPLITEAL VEIN: Negative. RIGHT CALF VEINS: Negative. LEFT COMMON FEMORAL VEIN: Negative. LEFT FEMORAL VEIN: Negative. LEFT POPLITEAL VEIN: Negative. LEFT CALF VEINS: Negative. ADDITIONAL FINDINGS: None. IMPRESSION: 1. No sonographic evidence for DVT in either lower extremity. Signer Name: Vinicius Guillen MD Signed: 02/23/2021 6:58 PM Workstation Name: [employer] CTA CHEST WITH CONTRAST INDICATION / CLINICAL INFORMATION: syncope, rule out PE. TECHNIQUE: Axial CT images were obtained through the chest after injection of 100 cc of Omnipaque IV contrast. 3 plane MIP and/or 3D reconstructions were produced. All CT scans at this location are performed using CT dose reduction for ALARA by means of automated exposure control. COMPARISON: None available. FINDINGS: PULMONARY ARTERIES: No pulmonary emboli. THORACIC AORTA: No significant abnormality. HEART: No significant abnormality. CORONARY ARTERY CALCIFICATION: Moderate. MEDIASTINUM / KASANDRA: No significant abnormality. PLEURA: No pleural effusion. No pneumothorax. LUNGS: There is mild atelectasis in the lingula. There is a calcified granuloma in the right upper lobe. ADDITIONAL FINDINGS: Fat density nodules are noted in the superior left breast characteristic of fat necrosis. UPPER ABDOMEN: No acute findings. SKELETAL STRUCTURES: No acute abnormality IMPRESSION: 1. No CT evidence for pulmonary embolism. 2. No acute findings. Signer Name: Vinicius Guillen MD Signed: 02/23/2021 7:25 PM Workstation Name: [employer] - Medical Decision Making 70-year-old female with history of hypertension, CAD, DM 2, and thyroid cancer in the past status post partial thyroidectomy is brought in from the waiting room after the patient experienced a syncopal episode and hit the back of her head. The patient was here in our emergency department yesterday seen for hyperglycemia and right hip pain. She was assessed and her hyperglycemia was treated and she was eventually discharged earlier today. However the patient states that she had nowhere to go because she is homeless and missed her transportation to a senior care and so she was sitting outside the entrance to our hospital all day. At one point she went to the bathroom and after coming out of the bathroom she began to feel lightheaded and then blacked out. She woke up and was on the ground. Apparently she fell backwards and hit the back of her head and lost consciousness for a few seconds. On initial assessment, the patient is afebrile and with grossly normal vital signs with the exception of elevated blood pressure and heart rate in the 90s. Physical examination reveals very dry mucous membranes with dried snuff in the mouth. There is a possible contusion to the posterior occiput but no abrasion/laceration. She has a c- collar in place. However she had no midline tenderness of the C/T/L-spine. We will perform broad work-up with a full set of labs, chest x-ray, and CT of the head to assess for evidence of intracranial hemorrhage given patient with trauma above the clavicles and LOC as well as CT of the cervical spine to assess for evidence of fracture given the patient's fall and advanced age. Although I suspect that the patient's syncopal episode is related to her hyperglycemia and dehydration, given that she has a history of cancer and her heart rate is in the 90s, we will also obtain CTA of the chest to assess for evidence of pulmonary embolism. She does have 2+ pitting edema to the bilateral lower extremities and we will thus order bilateral DVT ultrasounds. The patient's fingerstick blood glucose here in the emergency room read high. We will give 1 L of IV fluids for now and if potassium returns within normal range we will give insulin. I reviewed the patient's labs from yesterday and I see that she had a urinalysis consistent with UTI. For this reason I have ordered blood/urine cultures and IV ceftriaxone. The patient's labs have resulted and there is no significant leukocytosis or anemia. However, the patient's glucose is greater than 600 and chemistry labs are most consistent with hyperosmolar hyper glycemic syndrome. I have ordered an additional 1 L of IV fluids and 8 units of IV insulin. I have also ordered an insulin drip per protocol including every 2 hour BMPs and other associated orders. The patient has removed her c-collar. I have explained to her the risks of refusing to wear the c-collar including possible worsening of any injury or temporary/permanent disability and she expressed understanding and still wants to keep it off. CT of the head reveals no acute abnormalities but microvascular changes consistent with prior basal ganglia strokes. CT of the C-spine reveals no acute abnormalities. Bilateral DVT ultrasounds are negative. CTA of the chest is negative for PE or any other acute abnormalities. On repeat assessment, the patient remains with stable vitals. She feels better after IV fluids. I explained the diagnostic results and the need for admission for management of likely HHS with UTI. She expressed understanding and agreement with the plan of care. At 9:45 PM I spoke with Dr. Pearce the on-call hospitalist regarding the case. He accepts the patient for admission and will assume care. Critical Care Time: Yes Critical care time in (mins) excluding proc time.: 45 Critical care attestation.: If time is entered above; I have spent that time in minutes in the direct care of this critically ill patient, excluding procedure time. Critical care time was spent in the evaluation/assessment, work-up, and management of syncope with head trauma as well as hyperglycemia and HHS requiring IV fluids, and IV insulin as well as initiation of an IV insulin drip and frequent reevaluation and reassessment. ED Disposition Clinical Impression: UTI (urinary tract infection), Syncope and collapse, Hyperosmolar hyperglycemic state (HHS), Head contusion, Diabetes type 2, uncontrolled, Hyperglycemia due to diabetes mellitus HTN (hypertension) Qualifiers: Hypertension type: essential hypertension Disposition: OP ADMIT IP TO THIS HOSP Is pt being admited?: Yes Condition: Serious
[2021-02-23] MEDS ORDERED: cefTRIAXone/NS 2 GM/100 ML 2 GM/100 ML BAG IV ONE (19:01)
--- NOTE | 2021-02-23 19:26 | XRay Report ---
CHEST 2 VIEWS INDICATION / CLINICAL INFORMATION: hyperglycemia, syncope. COMPARISON: 01/15/2021 FINDINGS: Patient is rotated SUPPORT DEVICES: None. HEART / MEDIASTINUM: No significant abnormality. LUNGS / PLEURA: No acute pulmonary or pleural abnormality is identified. There is mild elevation righ t hemidiaphragm. No pneumothorax. ADDITIONAL FINDINGS: No significant additional findings. IMPRESSION: 1. No significant change. Signer Name: Vinicius Guillen MD Signed: 02/23/2021 7:22 PM Workstation Name: [id number]
[2021-02-23 19:27] LABS: Basophils % (Auto) 0.6 % (0.0-1.8); Eosinophils # (Auto) 0.1 K/mm3 (0.0-0.4); Eosinophils % (Auto) 2.2 % (0.0-4.3); Hemoglobin 13.7 gm/dl (10.1-14.3); Lymphocytes # (Auto) 0.8 K/mm3 (1.2-5.4); Lymphocytes % (Auto) 13.9 % (13.4-35.0); Mean Corpuscular HGB Conc 34 % (30-34); Mean Corpuscular Volume 91 fl (79-97); Monocytes # (Auto) 0.5 K/mm3 (0.0-0.8); Platelet Count 203 K/mm3 (140-440); Red Blood Count 4.49 M/mm3 (3.65-5.03); Red Cell Distribution Width 14.8 % (13.2-15.2)
[2021-02-23 19:34] LABS: Alanine Aminotransferase 17 units/L (7-56); Albumin 3.6 g/dL (3.9-5); BUN/Creatinine Ratio 19; Blood Urea Nitrogen 21 mg/dL (7-17); Calcium 8.5 mg/dL (8.4-10.2); Hemolysis Index 32
[2021-02-23 19:37] LABS: Bilirubin,Direct < 0.2 mg/dL (0-0.2); INR 0.9 (0.87-1.13)
[2021-02-23 19:38] LABS: Partial Thromboplastin Time 23.8 Sec. (24.2-36.6)
[2021-02-23] MEDS ORDERED: INSULIN REGULAR, HUMAN 100 UNITS/1 ML IV ONE ×2 (19:45→19:56)
[2021-02-23] MEDS ORDERED: SODIUM CHLORIDE 0.9% 1000 ML 1,000 ML IV ONE (19:55)
--- NOTE | 2021-02-23 20:03 | Vascular Lab Report ---
DUPLEX DOPPLER LOWER EXTREMITY VEINS, BILATERAL INDICATION / CLINICAL INFORMATION: swelling and pain. TECHNIQUE: Duplex doppler imaging was performed through the veins of both lower extremities using shazia ous compression and other maneuvers. COMPARISON: None available. FINDINGS: RIGHT COMMON FEMORAL VEIN: Negative. RIGHT FEMORAL VEIN: Negative. RIGHT POPLITEAL VEIN: Negative. RIGHT CALF VEINS: Negative. LEFT COMMON FEMORAL VEIN: Negative. LEFT FEMORAL VEIN: Negative. LEFT POPLITEAL VEIN: Negative. LEFT CALF VEINS: Negative. ADDITIONAL FINDINGS: None. IMPRESSION: 1. No sonographic evidence for DVT in either lower extremity. Signer Name: Vinicius Guillen MD Signed: 02/23/2021 7:58 PM Workstation Name: [id number]
[2021-02-23] MEDS: SODIUM CHLORIDE 0.9% 1000 ML 1,000 ML IV ONE (20:10)
--- NOTE | 2021-02-23 20:30 | Cat Scan Report ---
CTA CHEST WITH CONTRAST INDICATION / CLINICAL INFORMATION: syncope, rule out PE. TECHNIQUE: Axial CT images were obtained through the chest after injection of 100 cc of Omnipaque IV contrast. 3 plane MIP and/or 3D reconstructions were produced. All CT scans at this location are perf ormed using CT dose reduction for ALARA by means of automated exposure control. COMPARISON: None available. FINDINGS: PULMONARY ARTERIES: No pulmonary emboli. THORACIC AORTA: No significant abnormality. HEART: No significant abnormality. CORONARY ARTERY CALCIFICATION: Moderate. MEDIASTINUM / KASANDRA: No significant abnormality. PLEURA: No pleural effusion. No pneumothorax. LUNGS: There is mild atelectasis in the lingula. There is a calcified granuloma in the right upper lo be. ADDITIONAL FINDINGS: Fat density nodules are noted in the superior left breast characteristic of fat necrosis. UPPER ABDOMEN: No acute findings. SKELETAL STRUCTURES: No acute abnormality IMPRESSION: 1. No CT evidence for pulmonary embolism. 2. No acute findings. Signer Name: Vinicius Guillen MD Signed: 02/23/2021 8:25 PM Workstation Name: [id number]
--- NOTE | 2021-02-23 20:38 | Cat Scan Report ---
CT HEAD WITHOUT CONTRAST INDICATION / CLINICAL INFORMATION: head trauma +LOC. TECHNIQUE: All CT scans at this location are performed using CT dose reduction for ALARA by means of automated e xposure control. COMPARISON: Head CT 01/22/2021 FINDINGS: HEMORRHAGE: No evidence of intracranial hemorrhage or extra-axial fluid collection. EXTRA-AXIAL SPACES: Cortical sulci, sylvian fissures and basilar cisterns are within normal limits fo r size given the patient's age of 70 years. VENTRICULAR SYSTEM: The third and lateral ventricles are of normal size and configuration. CEREBRAL PARENCHYMA: Extensive periventricular and deep white matter lucencies noted compatible with advanced microvascular ischemic change. In addition small focal areas of decreased attenuation are se en in the head of the caudate nucleus on the left , in the left subinsular region and in the region o f the posterior limb of the internal capsule on the left where remote small deep infarctions are susp ected. Similar findings were present on previous study. MIDLINE SHIFT OR HERNIATION: There is no mass effect. CEREBELLUM / BRAINSTEM: Brainstem and cerebellum have an unremarkable appearance. MIDLINE STRUCTURES:No abnormalities of the pituitary gland or pineal region are identified. INTRACRANIAL VESSELS: Extensively calcified atherosclerotic plaque is seen along the course of the ca vernous segments of both internal carotid arteries. Calcified plaque is also observed along the cours e of the distal right vertebral artery. ORBITS: Status post right-sided cataract surgery. No additional abnormality. SOFT TISSUES of HEAD: No significant abnormality. CALVARIUM: Evaluation of bone windows reveals no abnormalities. PARANASAL SINUSES / MASTOID AIR CELLS: Visualized portions of the paranasal sinuses are free from inf lammatory mucosal disease. Mastoid air cells are normally pneumatized. ADDITIONAL FINDINGS: None. IMPRESSION: 1. Moderate microvascular ischemic change. 2. Remote small deep infarction is as described above. 3. No acute intracranial abnormality. Signer Name: Ryan Hughes MD Signed: 02/23/2021 8:34 PM Workstation Name: [id number]
--- NOTE | 2021-02-23 20:43 | Cat Scan Report ---
CT CERVICAL SPINE WITHOUT CONTRAST INDICATION / CLINICAL INFORMATION: Syncopal episode. Loss of consciousness. Neck injury. TECHNIQUE: Axial CT images were obtained through the cervical spine. Sagittal and coronal reformatted images wer e produced. All CT scans at this location are performed using CT dose reduction for ALARA by means of automated exposure control. COMPARISON: None available. FINDINGS: ALIGNMENT: Loss of the normal cervical lordosis is noted. No additional abnormality. No indication of traumatic subluxation. VERTEBRAE: No indication of fracture or bone destruction. DISC SPACES: Disc height is decreased at the C5-6, C6-7 and C7-T1 levels. DEGENERATIVE CHANGES: Widespread facet and uncovertebral arthropathy is noted resulting in multifocal neuroforaminal stenosis which is most pronounced at the C6 nerve root level bilaterally. CRANIOCERVICAL JUNCTION:No significant abnormality. SPINAL CANAL: Central spinal canal is adequately maintained throughout. PARASPINAL SOFT TISSUES: Postoperative changes are noted. Multiple surgical clips are seen in the helga inity of the thyroid gland status post right hemithyroidectomy. Correlation with surgical history is advised. ADDITIONAL FINDINGS: None. LUNG APICES: No significant abnormality of visualized lungs. IMPRESSION: 1. No indication of fracture or traumatic subluxation. 2. Widespread cervical spondylosis. Signer Name: Ryan Hughes MD Signed: 02/23/2021 8:39 PM Workstation Name: [id number]
[2021-02-23] MEDS ORDERED: DEXTROSE 50% IN WATER (25GM) 50 ML SYRINGE IV PRN (21:42)
[2021-02-23] MEDS ORDERED: INSULIN REGULAR, HUMAN 100 UNITS in SODIUM CHLORIDE 0.9% 99 ML IV SCH ×2 (22:00→23:00)
[2021-02-23] MEDS ORDERED: MAGNESIUM HYDROXIDE (MOM) ORAL LIQD UDC PO PRN (22:18)
[2021-02-23] MEDS ORDERED: MORPHINE 4 MG/1 ML INJ IV PRN (22:18)
[2021-02-23] MEDS ORDERED: ACETAMINOPHEN 325 MG TAB PO PRN (22:18)
[2021-02-23] MEDS ORDERED: ONDANSETRON 4 MG/2 ML INJ IV PRN (22:18)
[2021-02-23 22:25] LABS: Calcium 8.3 mg/dL (8.4-10.2)
[2021-02-23] MEDS ORDERED: SODIUM CHLORIDE 0.9% 1000 ML 1,000 ML IV SCH (22:30)
--- NOTE | 2021-02-23 22:38 | History and Physical Report ---
History of Present Illness Date of examination: 02/23/21 Date of admission: Syncope Chief complaint: Syncope Hyperglycemia History of present illness: 70-year-old female with known history of coronary artery disease, hypertension, diabetes mellitus and thyroid cancer status post thyroidectomy presents to the emergency room today I will had an syncopal episode hitting the back of her head. She was seen in the emergency room yesterday with hypoglycemia right hip pain. She was evaluated and subsequently discharged home from the emergency room. She said to be homeless and missed her transportation to a correction and therefore was in the hospital vicinity all day. She was said to have gone into the bathroom today and subsequently became lightheaded and had a syncopal episode during which she hit the back of her head. Patient denies any headache, no blurry vision, no nausea or vomiting, no diaphoresis. She denies any chest pain, no shortness of breath, no palpitations. She has been experiencing some dysuria over the past few days but denies any hematuria. She denies any fever or chills. Denies any sick contacts and no contact with anyone with COVID-19. She has not had the COVID-19 vaccination. Work-up in the emergency room today reveals a blood glucose of greater than 600, chest x-ray showed no acute findings, CT scan of the head shows moderate microvascular ischemic change, remote small deep infection which had been present in previous studies otherwise no intracranial abnormality. Urinalysis done about 24 hours ago also reveals mild UTI. Past History Past Medical History: acute [place] (X 2 stents), COPD, diabetes, hypertension, other ( Coronary artery disease, thyroid cancer,) Past Surgical History: PTCA (x2 Stents), Other (Partial Thyroid Removal due to Cancer) Social history: no significant social history Family history: no significant family history Medications and Allergies Allergies Allergy/AdvReac Type Severity Reaction Status Date / Time codeine Allergy Unknown Verified 02/23/21 17:21 Penicillins Allergy Unknown Verified 02/23/21 17:21 Home Medications Medication Instructions Recorded Confirmed Last Taken Type Diabetic Supplies,Miscell [Cequr 1 each MC BID #1 miscell 12/26/20 02/09/21 Unknown Rx Simplicity Survey Party Chief] Gabapentin 600 mg PO TID #90 cap 12/26/20 02/09/21 Unknown Rx traZODone [Desyrel] 150 mg PO QHS #90 12/26/20 02/09/21 Unknown Rx Albuterol Mdi (or & Nicu Only) 2 puff IH QID PRN #8.5 gram 01/05/21 02/09/21 Unknown Rx [ProAir HFA Inhaler] Sennosides/Docusate Sodium [Senna 1 each PO QHS #12 tablet 01/27/21 02/09/21 Unknown Rx Plus 8.6-50 mg Tablet] Aspirin [Adult Aspirin] 81 mg PO QDAY #30 02/09/21 Unknown Rx AtorvaSTATin [Lipitor] 40 mg PO QHS #30 02/09/21 Unknown Rx Baclofen [Lioresal] 20 mg PO Q12HR PRN #10 tablet 02/09/21 Unknown Rx Ciprofloxacin HCl 500 mg PO Q12H #14 tablet 02/09/21 Unknown Rx Clopidogrel [Plavix] 75 mg PO QDAY #30 02/09/21 Unknown Rx Insulin NPH/Regular [Novolin 70/30] 20 unit SUB-Q BIDAC #10 ml 02/09/21 Unknown Rx Insulin Regular, Human [HumuLIN R] 0 unit SQ AC #1 vial 02/09/21 Unknown Rx Levothyroxine [Synthroid] 50 mcg PO QDAY #30 02/09/21 Unknown Rx Metoprolol [Lopressor TAB] 25 mg PO QDAY #30 02/09/21 Unknown Rx Nicotine [Habitrol] 21 mg TD QDAY #14 patch 02/09/21 Unknown Rx amLODIPine 10 mg PO DAILY #30 tablet 02/09/21 Unknown Rx busPIRone [Buspar] 5 mg PO TID #90 02/09/21 Unknown Rx hydrALAZINE [Apresoline TAB] 25 mg PO TID #90 02/09/21 Unknown Rx Active Meds: Active Medications Acetaminophen (Acetaminophen 325 Mg Tab) 650 mg PO Q6H PRN PRN Reason: Pain MILD(1-3)/Fever >100.5/MELCHOR Dextrose (Dextrose 50% In Water (25gm) 50 Ml Syringe) 0 ml IV Q30MIN PRN; Protocol PRN Reason: Hypoglycemia Insulin Human Regular 100 (units/ Sodium Chloride) 100 mls @ 1 mls/hr IV TITR ROSALEE; Protocol Insulin Human Regular 100 (units/ Sodium Chloride) 100 mls @ 1 mls/hr IV TITR ROSALEE; Protocol Sodium Chloride (Nacl 0.9% 1000 Ml) 1,000 mls @ 150 mls/hr IV DIRECT ROSALEE Potassium Chloride/Dextrose/Sod Cl (D5w/0.45% Nacl/Kcl 20 Meq) 20 meq in 1,000 mls @ 125 mls/hr IV DIRECT ROSALEE Magnesium Hydroxide (Magnesium Hydroxide (Mom) Oral Liqd Udc) 30 ml PO Q4H PRN PRN Reason: Constipation Morphine Sulfate (Morphine 2 Mg/1 Ml Inj) 2 mg IV Q4H PRN PRN Reason: Pain, Moderate (4-6) Morphine Sulfate (Morphine 4 Mg/1 Ml Inj) 4 mg IV Q4H PRN PRN Reason: Pain , Severe (7-10) Ondansetron HCl (Ondansetron 4 Mg/2 Ml Inj) 4 mg IV Q8H PRN PRN Reason: Nausea And Vomiting Sodium Chloride (Sodium Chloride 0.9% 10 Ml Flush Syringe) 10 ml IV BID ROSALEE Sodium Chloride (Sodium Chloride 0.9% 10 Ml Flush Syringe) 10 ml IV PRN PRN PRN Reason: LINE FLUSH Review of Systems Constitutional: no fever, no chills Ears, nose, mouth and throat: no nasal congestion, no sore throat Cardiovascular: no chest pain, no palpitations Respiratory: no cough, no shortness of breath Gastrointestinal: no abdominal pain, no nausea, no vomiting, no diarrhea Genitourinary Female: no pelvic pain, no flank pain, no dysuria, no hematuria Musculoskeletal: no neck pain, no low back pain Integumentary: no rash, no pruritis Neurological: syncope, no headaches, no confusion Psychiatric: no anxiety, no depression, no confusion Endocrine: no polyphagia, no polydipsia, no polyuria, no nocturia Exam - Constitutional Vitals: Temp Pulse Resp BP Pulse Ox 98.3 F 92 H 18 143/82 95 02/23/21 22:09 02/23/21 22:09 02/23/21 22:09 02/23/21 22:09 02/23/21 22:09 General appearance: Present: no acute distress, well-nourished - EENT Eyes: Present: PERRL, EOM intact. Absent: scleral icterus ENT: hearing intact, clear oral mucosa, dentition normal - Neck Neck: Present: supple, normal ROM - Respiratory Respiratory effort: normal Respiratory: bilateral: CTA - Cardiovascular Rhythm: regular Heart Sounds: Present: S1 & S2. Absent: gallop, systolic murmur, diastolic murmur, rub, click - Extremities Extremities: no ischemia, pulses intact, pulses symmetrical, normal temperature, normal color, Full ROM Extremity abnormal: edema (2+ Edema Bilaterally) Peripheral Pulses: within normal limits - Abdominal General gastrointestinal: Present: soft, non-tender, non-distended, normal bowel sounds. Absent: mass - Integumentary Integumentary: Present: clear, warm, dry. Absent: rash - Musculoskeletal Musculoskeletal: strength equal bilaterally - Psychiatric Psychiatric: appropriate mood/affect, intact judgment & insight, memory intact, cooperative - Neurologic Neurologic: CNII-XII intact, no focal deficits, moves all extremities HEART Score - HEART Score Troponin: Troponin T < 0.010 ng/mL (0.00-0.029) 02/23/21 18:55 Results - Labs CBC & Chem 7: 02/24/21 04:54 02/24/21 04:54 Labs: Abnormal lab results 02/23/21 02/23/21 02/23/21 Range/Units 18:30 18:55 18:55 [place] % (Auto) 8.0 H (0.0-7.3) % Lymph # (Auto) 0.8 L (1.2-5.4) K/mm3 Seg Neutrophils % 75.3 H (40.0-70.0) % APTT 23.8 L (24.2-36.6) Sec. Sodium (137-145) mmol/L Chloride (98-107) mmol/L Carbon Dioxide (22-30) mmol/L BUN (7-17) mg/dL Glucose (65-100) mg/dL POC Glucose > 600 H (70-105) mg/dL Alkaline Phosphatase (35-129) units/L Albumin (3.9-5) g/dL 02/23/21 02/23/21 Range/Units 18:55 20:07 [place] % (Auto) (0.0-7.3) % Lymph # (Auto) (1.2-5.4) K/mm3 Seg Neutrophils % (40.0-70.0) % APTT (24.2-36.6) Sec. Sodium 133 L (137-145) mmol/L Chloride 97.8 L (98-107) mmol/L Carbon Dioxide 20 L D (22-30) mmol/L BUN 21 H (7-17) mg/dL Glucose 632 H* (65-100) mg/dL POC Glucose > 600 H (70-105) mg/dL Alkaline Phosphatase 144 H (35-129) units/L Albumin 3.6 L (3.9-5) g/dL Assessment and Plan - Patient Problems (1) Hyperglycemia Current Visit: No Status: Acute Plan to address problem: Probably secondary to noncompliance with medications. Patient placed on IV fluid and insulin drip. We will monitor Accu-Cheks closely. (2) UTI (urinary tract infection) Current Visit: Yes Status: Acute Plan to address problem: Patient placed on empiric IV antibiotics. Will await urine culture result. (3) HTN (hypertension) Current Visit: No Status: Chronic Qualifiers: Hypertension type: essential hypertension Plan to address problem: We will resume routine home medications and monitor vital signs closely. (4) Homelessness Current Visit: No Status: Acute Plan to address problem: Consult to be placed to case management for evaluation. (5) DVT prophylaxis Current Visit: No Status: Acute Plan to address problem: Patient placed on subcutaneous heparin. (6) Full code status Current Visit: Yes Status: Acute Plan to address problem: Patient is full code.
[2021-02-23] MEDS ORDERED: D5W/0.45% NACL/KCL 20 MEQ 20 MEQ/1,000 ML BAG IV SCH (23:00)
[2021-02-24 05:41] LABS: Basophils # (Auto) 0.1 K/mm3 (0.0-0.1); Basophils % (Auto) 0.9 % (0.0-1.8); Eosinophils # (Auto) 0.3 K/mm3 (0.0-0.4); Eosinophils % (Auto) 4.5 % (0.0-4.3); Hematocrit 37.1 % (30.3-42.9); Hemoglobin 12.6 gm/dl (10.1-14.3); Lymphocytes # (Auto) 1.6 K/mm3 (1.2-5.4); Lymphocytes % (Auto) 24.1 % (13.4-35.0); Mean Corpuscular HGB Conc 34 % (30-34); Mean Corpuscular Volume 88 fl (79-97); Monocytes # (Auto) 0.6 K/mm3 (0.0-0.8); Monocytes % (Auto) 8.8 % (0.0-7.3); Platelet Count 202 K/mm3 (140-440); Red Blood Count 4.21 M/mm3 (3.65-5.03); Red Cell Distribution Width 14.3 % (13.2-15.2)
[2021-02-24 05:53] LABS: BUN/Creatinine Ratio 19; Blood Urea Nitrogen 15 mg/dL (7-17); Calcium 8.6 mg/dL (8.4-10.2); Hemolysis Index 7
[2021-02-24] MEDS ORDERED: POTASSIUM CHLORIDE 10 MEQ 10 MEQ/100 ML BAG IV ONE (06:00)
[2021-02-24] MEDS: HEPARIN 5,000 UNIT/1 ML VIAL SUB-Q SCH ×4 (06:17→22:06)
[2021-02-24] MEDS ORDERED: ALBUTEROL 8.5 GM MDI INHALATION IH PRN (11:02)
[2021-02-24] MEDS ORDERED: BACLOFEN 10 MG TAB PO PRN (11:02)
--- NOTE | 2021-02-24 11:05 | Progress Note ---
Assessment and Plan Assessment and plan: 70-year-old female with known history of coronary artery disease, hypertension, diabetes mellitus and thyroid cancer status post thyroidectomy presented to the emergency room yesterday(02/23/2021) with reportedly a syncopal episode hitting the back of her head. She was seen in the emergency room on 02/22/2021 with hypoglycemia right hip pain. She was evaluated and subsequently discharged home from the emergency room. She is said to be homeless and missed her transportation to a assisted and therefore was in the hospital all day. She was said to have gone into the bathroom on the day of admission and subsequently became lightheaded and had a syncopal episode during which she hit the back of her head. Work-up in the emergency room today reveals a blood glucose of greater than 600, chest x-ray showed no acute findings, CT scan of the head shows moderate microvascular ischemic change, remote small deep infection which had been present in previous studies otherwise no intracranial abnormality. Urinalysis done about 24 hours ago also reveals mild UTI. Sepsis. Patient meets criteria given the tachycardia, tachypnea and diagnosis of UTI. UTI. Hypertension Diabetes mellitus type 2 Peripheral neuropathy CAD Thyroid cancer s/p thyroidectomy Homelessness DVT prophylaxis 02/24/2021. Follow-up blood and urine cultures. Continue IV antibiotics. Continue SSRI and Accu-Cheks. Hypoglycemia secondary to the IV fluids of D5W started by the admitting physician. We will discontinue D5 IV fluids and start normal saline. Transfer the patient to a medical floor. Patient complains of severe peripheral neuropathy and difficulty ambulating. PT/OT. Continue gabapentin. Case management follow-up for homelessness. History Interval history: No new issues overnight. Hospitalist Physical - Constitutional Vitals: Temp Pulse Resp BP Pulse Ox 98.5 F 76 12 150/60 97 02/24/21 02:00 02/24/21 07:01 02/24/21 07:01 02/24/21 07:01 02/24/21 07:01 General appearance: Present: no acute distress, well-nourished - EENT Eyes: Present: PERRL, EOM intact ENT: hearing intact, clear oral mucosa, dentition normal - Neck Neck: Present: supple, normal ROM - Respiratory Respiratory effort: normal Respiratory: bilateral: CTA - Cardiovascular Rhythm: regular Heart Sounds: Present: S1 & S2. Absent: gallop, rub - Extremities Extremities: no ischemia, No edema, Full ROM - Abdominal General gastrointestinal: soft, non-tender, non-distended, normal bowel sounds - Integumentary Integumentary: Present: clear, warm, dry - Neurologic Neurologic: CNII-XII intact, moves all extremities HEART Score - HEART Score Troponin: Troponin T < 0.010 ng/mL (0.00-0.029) 02/23/21 18:55 Results - Labs CBC & Chem 7: 02/24/21 04:54 02/24/21 04:54 Labs: Laboratory Last Values WBC 6.5 K/mm3 (4.5-11.0) 02/24/21 04:54 RBC 4.21 M/mm3 (3.65-5.03) 02/24/21 04:54 Hgb 12.6 gm/dl (10.1-14.3) 02/24/21 04:54 Hct 37.1 % (30.3-42.9) 02/24/21 04:54 MCV 88 fl (79-97) 02/24/21 04:54 MCH 30 pg (28-32) 02/24/21 04:54 MCHC 34 % (30-34) 02/24/21 04:54 RDW 14.3 % (13.2-15.2) 02/24/21 04:54 Plt Count 202 K/mm3 (140-440) 02/24/21 04:54 Lymph % (Auto) 24.1 % (13.4-35.0) 02/24/21 04:54 [place] % (Auto) 8.8 % (0.0-7.3) H 02/24/21 04:54 Eos % (Auto) 4.5 % (0.0-4.3) H 02/24/21 04:54 Baso % (Auto) 0.9 % (0.0-1.8) 02/24/21 04:54 Lymph # (Auto) 1.6 K/mm3 (1.2-5.4) 02/24/21 04:54 [place] # (Auto) 0.6 K/mm3 (0.0-0.8) 02/24/21 04:54 Eos # (Auto) 0.3 K/mm3 (0.0-0.4) 02/24/21 04:54 Baso # (Auto) 0.1 K/mm3 (0.0-0.1) 02/24/21 04:54 Seg Neutrophils % 61.7 % (40.0-70.0) 02/24/21 04:54 Seg Neutrophils # 4.0 K/mm3 (1.8-7.7) 02/24/21 04:54 PT 12.7 Sec. (12.2-14.9) 02/23/21 18:55 INR 0.90 (0.87-1.13) 02/23/21 18:55 APTT 23.8 Sec. (24.2-36.6) L 02/23/21 18:55 VBG pH 7.402 (7.320-7.420) 02/23/21 18:55 Sodium 141 mmol/L (137-145) 02/24/21 04:54 Potassium 4.2 mmol/L (3.6-5.0) 02/24/21 04:54 Chloride 103.5 mmol/L (98-107) 02/24/21 04:54 Carbon Dioxide 27 mmol/L (22-30) 02/24/21 04:54 Anion Gap 15 mmol/L 02/24/21 04:54 BUN 15 mg/dL (7-17) 02/24/21 04:54 Creatinine 0.8 mg/dL (0.6-1.2) 02/24/21 04:54 Estimated GFR > 60 ml/min 02/24/21 04:54 BUN/Creatinine Ratio 19 % 02/24/21 04:54 Glucose 301 mg/dL (65-100) H 02/24/21 04:54 POC Glucose 192 mg/dL (70-105) H 02/24/21 06:34 Hemoglobin A1c 10.9 % (4-6) H 02/24/21 04:54 Osmolality 319 Mosm/kg 02/23/21 18:55 Calcium 8.6 mg/dL (8.4-10.2) 02/24/21 04:54 Phosphorus 3.90 mg/dL (2.5-4.5) 02/23/21 21:46 Magnesium 1.90 mg/dL (1.7-2.3) 02/23/21 21:46 Total Bilirubin 0.60 mg/dL (0.1-1.2) 02/23/21 18:55 Direct Bilirubin < 0.2 mg/dL (0-0.2) 02/23/21 18:55 Indirect Bilirubin 0.4 mg/dL 02/23/21 18:55 AST 22 units/L (5-40) 02/23/21 18:55 ALT 17 units/L (7-56) 02/23/21 18:55 Alkaline Phosphatase 144 units/L (35-129) H 02/23/21 18:55 Troponin T < 0.010 ng/mL (0.00-0.029) 02/23/21 18:55 NT-Pro-B Natriuret Pep 375.7 pg/mL (0-900) 02/23/21 18:55 Total Protein 6.5 g/dL (6.3-8.2) 02/23/21 18:55 Albumin 3.6 g/dL (3.9-5) L 02/23/21 18:55 Albumin/Globulin Ratio 1.2 % 02/23/21 18:55 Lipase 41 units/L (13-60) 02/23/21 18:55 TSH 0.911 mlU/mL (0.270-4.200) 02/23/21 20:04 Microbiology: Microbiology 02/23/21 20:11 Peripheral/Venous Blood Culture - Preliminary Culture in Progress 02/23/21 20:04 Peripheral/Venous Blood Culture - Preliminary Culture in Progress Active Medications - Current Medications Current Medications: Generic Name Dose Route Start Last Admin Trade Name Freq PRN Reason Stop Dose Admin Acetaminophen 650 mg 02/23/21 22:18 Acetaminophen 325 Mg Tab PO Q6H PRN Pain MILD(1-3)/Fever >100.5/MELCHOR Dextrose 0 ml 02/23/21 21:42 Dextrose 50% In Water (25gm) 50 Ml Syringe IV Q30MIN PRN Hypoglycemia Protocol Heparin Sodium (Porcine) 5,000 unit 02/24/21 06:00 Heparin 5,000 Unit/1 Ml Vial SUB-Q Q8HR ROSALEE Insulin Human Regular 100 100 mls @ 1 mls/hr 02/23/21 22:00 02/24/21 06:39 units/ Sodium Chloride IV 3 units/hr TITR ROSALEE 3 mls/hr Titration Protocol 1 UNITS/HR Sodium Chloride 1,000 mls @ 150 mls/hr 02/23/21 22:30 Nacl 0.9% 1000 Ml IV DIRECT ROSALEE Potassium Chloride/Dextrose/Sod Cl 20 meq in 1,000 mls @ 125 mls/hr 02/23/21 23:00 02/24/21 04:48 D5w/0.45% Nacl/Kcl 20 Meq IV 125 mls/hr DIRECT ROSALEE Administration Magnesium Hydroxide 30 ml 02/23/21 22:18 Magnesium Hydroxide (Mom) Oral Liqd Udc PO Q4H PRN Constipation Morphine Sulfate 2 mg 02/23/21 22:18 Morphine 2 Mg/1 Ml Inj IV Q4H PRN Pain, Moderate (4-6) Morphine Sulfate 4 mg 02/23/21 22:18 02/24/21 03:55 Morphine 4 Mg/1 Ml Inj IV 4 mg Q4H PRN Administration Pain , Severe (7-10) Ondansetron HCl 4 mg 02/23/21 22:18 02/24/21 03:55 Ondansetron 4 Mg/2 Ml Inj IV 4 mg Q8H PRN Administration Nausea And Vomiting Sodium Chloride 10 ml 02/24/21 10:00 Sodium Chloride 0.9% 10 Ml Flush Syringe IV BID ROSALEE Sodium Chloride 10 ml 02/23/21 22:18 Sodium Chloride 0.9% 10 Ml Flush Syringe IV PRN PRN LINE FLUSH Nutrition/Malnutrition Assess - Dietary Evaluation Nutrition/Malnutrition Findings: Nutrition Notes Start: 02/24/21 07:41 Freq: Status: Active Protocol: Document 02/24/21 07:41 (Rec: 02/24/21 07:46 [id number]) Nutrition Notes Need for Assessment generated from: MD Order Initial or Follow up Brief Note Current Diagnosis Coronary Artery Disease, Diabetes,Hypertension Other Pertinent Diagnosis thyroid cancer s/p thyroidectomy, syncope, UTI Labs/Tests A1c 10.9 Subjective/Other Information MD consult for diet education. Pt with DKA due to inability to afford insulin. Pt is experiencing homelessness. Pt on hold in ED. Nutrition Intervention Follow-Up By: 02/28/21 Additional Comments F/u: diet education
[2021-02-24] MEDS ORDERED: ALBUTEROL 2.5 MG/3 ML NEBU IH PRN (11:32)
--- NOTE | 2021-02-24 13:04 | Electrocardiograph Report ---
[facility] Test Date: 2021-02-24 Test Time: 04:07:42 Pat Name: FABIENNE ARMENDARIZ Department: Room: [facility] Gender: F Clinical Trial Assistant: BAUDILIO : 1950 Requested By: WHITNEY COSTA Order Number: [id number] Reading MD: Marisa Paredes Measurements Intervals [place] Rate: 82 P: 10 KS: 238 QRS: -40 QRSD: 87 T: 69 QT: 408 QTc: 477 Interpretive Statements Sinus rhythm Prolonged KS interval Left anterior fascicular block Left ventricular hypertrophy Anterior Q waves, possibly due to LVH Compared to ECG 02/24/2021 03:23:43 No significant change Electronically Signed On 02-24-2021 13:04:48 EDT by Marisa Paredes
--- NOTE | 2021-02-24 13:04 | Electrocardiograph Report ---
[facility] Test Date: 2021-02-24 Test Time: 03:23:43 Pat Name: FABIENNE ARMENDARIZ Department: Room: [facility] Gender: F Environmental Sciences Professor: BAUDILIO : 1950 Requested By: WHITNEY COSTA Order Number: [id number] Reading MD: Marisa Paredes Measurements Intervals [place] Rate: 91 P: RI: QRS: -57 QRSD: 90 T: 87 QT: 396 QTc: 489 Interpretive Statements Sinus rhythm with first-degree AV block Left ventricular hypertrophy Anterior Q waves, possibly due to LVH Compared to ECG 02/22/2021 08:42:42 No significant change Electronically Signed On 02-24-2021 13:04:31 EDT by Marisa Paredes
--- NOTE | 2021-02-24 14:40 | Consultation ---
History of Present Illness Consult date: 02/24/21 Requesting physician: TYE WRIGHT Reason for consult: other (HONK) History of present illness: PULMONARY/CCM CONSULT NOTE (Full dictation # ) Please see dictated notes for full details Past History Past Medical History: acute CO (X 2 stents), COPD, diabetes, hypertension, other ( Coronary artery disease, thyroid cancer,) Past Surgical History: PTCA (x2 Stents), Other (Partial Thyroid Removal due to Cancer) Social history: no significant social history Family history: no significant family history Medications and Allergies Allergies Allergy/AdvReac Type Severity Reaction Status Date / Time codeine Allergy Unknown Verified 02/23/21 17:21 Penicillins Allergy Unknown Verified 02/23/21 17:21 Home Medications Medication Instructions Recorded Confirmed Last Taken Type Diabetic Supplies,Miscell [Cequr 1 each MC BID #1 miscell 12/26/20 02/09/21 Unknown Rx Simplicity [employer]] Gabapentin 600 mg PO TID #90 cap 12/26/20 02/09/21 Unknown Rx traZODone [Desyrel] 150 mg PO QHS #90 12/26/20 02/09/21 Unknown Rx Albuterol Mdi (or & Nicu Only) 2 puff IH QID PRN #8.5 gram 01/05/21 02/09/21 Unknown Rx [ProAir HFA Inhaler] Sennosides/Docusate Sodium [Senna 1 each PO QHS #12 tablet 01/27/21 02/09/21 Unknown Rx Plus 8.6-50 mg Tablet] Aspirin [Adult Aspirin] 81 mg PO QDAY #30 02/09/21 Unknown Rx AtorvaSTATin [Lipitor] 40 mg PO QHS #30 02/09/21 Unknown Rx Baclofen [Lioresal] 20 mg PO Q12HR PRN #10 tablet 02/09/21 Unknown Rx Ciprofloxacin HCl 500 mg PO Q12H #14 tablet 02/09/21 Unknown Rx Clopidogrel [Plavix] 75 mg PO QDAY #30 02/09/21 Unknown Rx Insulin NPH/Regular [Novolin 70/30] 20 unit SUB-Q BIDAC #10 ml 02/09/21 Unknown Rx Insulin Regular, Human [HumuLIN R] 0 unit SQ AC #1 vial 02/09/21 Unknown Rx Levothyroxine [Synthroid] 50 mcg PO QDAY #30 02/09/21 Unknown Rx Metoprolol [Lopressor TAB] 25 mg PO QDAY #30 02/09/21 Unknown Rx Nicotine [Habitrol] 21 mg TD QDAY #14 patch 02/09/21 Unknown Rx amLODIPine 10 mg PO DAILY #30 tablet 02/09/21 Unknown Rx busPIRone [Buspar] 5 mg PO TID #90 02/09/21 Unknown Rx hydrALAZINE [Apresoline TAB] 25 mg PO TID #90 02/09/21 Unknown Rx Active Meds: Active Medications Acetaminophen (Acetaminophen 325 Mg Tab) 650 mg PO Q6H PRN PRN Reason: Pain MILD(1-3)/Fever >100.5/MELCHOR Albuterol (Albuterol 2.5 Mg/3 Ml Nebu) 2.5 mg IH QIDRT PRN PRN Reason: Wheezing Amlodipine Besylate (Amlodipine 10 Mg Tab) 10 mg PO DAILY [facility]AL[facility] Aspirin (Aspirin Ec 81 Mg Tab) 81 mg PO QDAY [facility] Atorvastatin Calcium (Atorvastatin 40 Mg Tab) 40 mg PO QHS [facility] Baclofen (Baclofen 10 Mg Tab) 20 mg PO Q12HR PRN PRN Reason: Muscle Spasm Buspirone HCl (Buspirone 5 Mg Tab) 5 mg PO TID [facility] Clopidogrel Bisulfate (Clopidogrel 75 Mg Tab) 75 mg PO QDAY [facility] Dextrose (Dextrose 50% In Water (25gm) 50 Ml Syringe) 0 ml IV Q30MIN PRN; Protocol PRN Reason: Hypoglycemia Gabapentin (Gabapentin 300 Mg Cap) 600 mg PO TID [facility] Heparin Sodium (Porcine) (Heparin 5,000 Unit/1 Ml Vial) 5,000 unit SUB-Q Q8HR [facility] Last Admin: 02/24/21 06:17 Dose: Not Given Documented by: Hydralazine HCl (Hydralazine 25 Mg Tab) 25 mg PO TID [facility] Insulin Human Regular 100 (units/ Sodium Chloride) 100 mls @ 1 mls/hr IV TITR [facility]AL[facility]; Protocol Last Titration: 02/24/21 11:00 Dose: Infused Documented by: Sodium Chloride (Nacl 0.9% 1000 Ml) 1,000 mls @ 75 mls/hr IV DIRECT [facility]AL[facility] Ceftriaxone Sodium (Rocephin/Ns 2 Gm/100 Ml) 2 gm in 100 mls @ 200 mls/hr IV Q24H [facility]; Protocol Stop: 03/01/21 15:59 Insulin Human Isoph/Insulin Regular (Insulin Nph/Regular 70/30 Inj) 20 unit SUB-Q BIDAC [facility] Levothyroxine Sodium (Levothyroxine 50 Mcg Tab) 50 mcg PO DAILY@0600 [facility] Magnesium Hydroxide (Magnesium Hydroxide (Mom) Oral Liqd Udc) 30 ml PO Q4H PRN PRN Reason: Constipation Metoprolol Tartrate (Metoprolol Tartrate 25 Mg Tab) 25 mg PO QDAY [facility] Morphine Sulfate (Morphine 2 Mg/1 Ml Inj) 2 mg IV Q4H PRN PRN Reason: Pain, Moderate (4-6) Morphine Sulfate (Morphine 4 Mg/1 Ml Inj) 4 mg IV Q4H PRN PRN Reason: Pain , Severe (7-10) Last Admin: 02/24/21 03:55 Dose: 4 mg Documented by: Ondansetron HCl (Ondansetron 4 Mg/2 Ml Inj) 4 mg IV Q8H PRN PRN Reason: Nausea And Vomiting Last Admin: 02/24/21 03:55 Dose: 4 mg Documented by: Senna/Docusate Sodium (Sennosides/Docusate Sodium 8.6/50 Mg Tab) 1 tab PO QHS [facility] Sodium Chloride (Sodium Chloride 0.9% 10 Ml Flush Syringe) 10 ml IV BID [facility] Last Admin: 02/24/21 10:15 Dose: 10 ml Documented by: Sodium Chloride (Sodium Chloride 0.9% 10 Ml Flush Syringe) 10 ml IV PRN PRN PRN Reason: LINE FLUSH Trazodone HCl (Trazodone 50 Mg Tab) 150 mg PO QHS [facility] Physical Examination Vital signs: Vital Signs Temp Pulse Resp BP 98.7 F 97 H 20 145/79 02/23/21 17:22 02/23/21 17:22 02/23/21 17:22 02/23/21 17:22 Results - Laboratory Findings CBC and BMP: 02/24/21 04:54 02/24/21 04:54 PT/INR, D-dimer PT 12.7 Sec. (12.2-14.9) 02/23/21 18:55 INR 0.90 (0.87-1.13) 02/23/21 18:55 Abnormal lab findings: Abnormal Labs 02/23/21 02/23/21 02/23/21 18:30 18:55 18:55 [place] % (Auto) 8.0 H Eos % (Auto) Lymph # (Auto) 0.8 L Seg Neutrophils % 75.3 H APTT 23.8 L Sodium Potassium Chloride Carbon Dioxide BUN Glucose POC Glucose > 600 H Hemoglobin A1c Calcium Alkaline Phosphatase Albumin 02/23/21 02/23/21 02/23/21 18:55 20:07 21:46 [place] % (Auto) Eos % (Auto) Lymph # (Auto) Seg Neutrophils % APTT Sodium 133 L Potassium 3.5 L D Chloride 97.8 L Carbon Dioxide 20 L D BUN 21 H 20 H Glucose 632 H* 333 H POC Glucose > 600 H Hemoglobin A1c Calcium 8.3 L Alkaline Phosphatase 144 H Albumin 3.6 L 02/24/21 02/24/21 02/24/21 04:31 04:54 04:54 [place] % (Auto) Eos % (Auto) Lymph # (Auto) Seg Neutrophils % APTT Sodium Potassium Chloride Carbon Dioxide BUN Glucose 301 H POC Glucose 264 H Hemoglobin A1c 10.9 H Calcium Alkaline Phosphatase Albumin 02/24/21 02/24/21 02/24/21 04:54 06:34 11:13 [place] % (Auto) 8.8 H Eos % (Auto) 4.5 H Lymph # (Auto) Seg Neutrophils % APTT Sodium Potassium Chloride Carbon Dioxide BUN Glucose POC Glucose 192 H 41 L Hemoglobin A1c Calcium Alkaline Phosphatase Albumin 02/24/21 12:14 [place] % (Auto) Eos % (Auto) Lymph # (Auto) Seg Neutrophils % APTT Sodium Potassium Chloride Carbon Dioxide BUN Glucose POC Glucose 166 H Hemoglobin A1c Calcium Alkaline Phosphatase Albumin
[2021-02-24 15:55] LABS: BUN/Creatinine Ratio 16; Blood Urea Nitrogen 14 mg/dL (7-17); Calcium 8.4 mg/dL (8.4-10.2); Hemolysis Index 6
[2021-02-24] MEDS: busPIRone 5 MG TAB PO SCH ×2 (17:19→21:17)
[2021-02-24] MEDS: hydrALAZINE 25 MG TAB PO SCH ×2 (17:19→21:11)
[2021-02-24] MEDS: GABAPENTIN 300 MG CAP PO SCH ×2 (17:19→21:17)
[2021-02-24] MEDS: cefTRIAXone/NS 2 GM/100 ML 2 GM/100 ML BAG IV SCH (17:20)
[2021-02-24] MEDS: INSULIN NPH/REGULAR 70/30 INJ SUB-Q SCH (21:35)
[2021-02-24] MEDS: SENNOSIDES/DOCUSATE SODIUM 8.6/50 MG TAB PO SCH (22:06)
[2021-02-24] MEDS: SODIUM CHLORIDE 0.9% 1000 ML 1,000 ML IV SCH (22:09)
[2021-02-24] MEDS: traZODone 50 MG TAB PO SCH (22:43)
--- NOTE | 2021-02-25 05:11 | Progress Note ---
Assessment and Plan Sepsis secondary to UTI. Hypertension Diabetes mellitus type 2 Peripheral neuropathy h/o CAD Thyroid cancer s/p thyroidectomy -Continue with antibiotics. De-escalate based on culture data and clinical response -Follow cultures- urine and blood -Accuchecks with glycemic control, target blood glucose 140-180mg/dL, avoid hypoglycemia -VTE prophylaxis -Chronic home medications -Monitor hemodynamics closely -Chronic home medications as clinically indicated Subjective Date of service: 02/25/21 Interval history: Follow up for Sepsis secondary to UTI; Hyperglycemia; s/p fall with negative imaging Seen and examined. Vitals, labs, medications, chart , imaging reviewed. No adverse overnight events, she denies any chest pain, no shortness of breath, no fevers or chills, no nausea or vomiting. Objective - Exam Narrative Exam: - EENT Eyes: Present: PERRL, EOM intact ENT: hearing intact, clear oral mucosa, dentition normal - Neck Neck: Present: supple, normal ROM - Respiratory Respiratory effort: normal Respiratory: bilateral: CTA - Cardiovascular Rhythm: regular Heart Sounds: Present: S1 & S2. Absent: gallop, rub - Extremities Extremities: no ischemia, No edema, some tenderness on right hip. - Abdominal General gastrointestinal: soft, non-tender, non-distended, normal bowel sounds - Integumentary Integumentary: Present: clear, warm, dry - Neurologic Neurologic: CNII-XII intact, moves all extremities Vital Signs - 12hr 02/24/21 02/24/21 02/24/21 17:19 17:21 17:31 Pulse Rate 86 85 79 Respiratory 10 L 12 Rate Blood Pressure 136/68 124/55 124/55 O2 Sat by Pulse Oximetry 02/24/21 02/24/21 02/24/21 17:41 17:51 18:01 Pulse Rate 76 77 73 Respiratory 13 11 L 11 L Rate Blood Pressure 124/55 124/55 100/45 O2 Sat by Pulse Oximetry 02/24/21 02/24/21 02/24/21 18:11 18:21 18:31 Pulse Rate 77 85 81 Respiratory 10 L 12 10 L Rate Blood Pressure 100/45 100/45 100/45 O2 Sat by Pulse 81 L Oximetry 02/24/21 02/24/21 02/24/21 18:41 18:51 19:01 Pulse Rate 82 83 82 Respiratory 10 L 11 L 9 L Rate Blood Pressure 100/45 100/45 130/66 O2 Sat by Pulse Oximetry 02/24/21 02/24/21 02/24/21 19:11 19:21 19:31 Pulse Rate 80 80 79 Respiratory 10 L 9 L 10 L Rate Blood Pressure 130/66 130/66 130/66 O2 Sat by Pulse Oximetry 02/24/21 02/24/21 02/24/21 19:41 19:51 20:01 Pulse Rate 83 86 80 Respiratory 11 L 12 10 L Rate Blood Pressure 130/66 130/66 140/74 O2 Sat by Pulse Oximetry 02/24/21 02/24/21 02/24/21 20:11 20:21 20:31 Pulse Rate 82 81 84 Respiratory 9 L 9 L 10 L Rate Blood Pressure 140/74 140/74 140/74 O2 Sat by Pulse Oximetry 02/24/21 02/24/21 02/24/21 20:41 20:51 21:01 Pulse Rate 80 80 82 Respiratory 9 L 11 L 10 L Rate Blood Pressure 140/74 140/74 118/63 O2 Sat by Pulse Oximetry 02/24/21 02/24/21 02/24/21 21:11 21:21 21:30 Pulse Rate 79 80 Respiratory 10 L 10 L Rate Blood Pressure 118/63 118/63 118/63 O2 Sat by Pulse Oximetry 02/24/21 02/24/21 02/24/21 21:47 22:14 22:38 Pulse Rate Respiratory Rate Blood Pressure 118/63 118/63 118/63 O2 Sat by Pulse 99 Oximetry 02/24/21 02/24/21 02/24/21 22:41 22:51 23:01 Pulse Rate 74 71 68 Respiratory 12 16 15 Rate Blood Pressure 122/66 122/66 114/66 O2 Sat by Pulse 98 98 100 Oximetry 02/24/21 02/24/21 02/25/21 23:11 23:21 01:38 Pulse Rate 63 70 Respiratory 12 13 Rate Blood Pressure 114/66 118/63 O2 Sat by Pulse 100 99 98 Oximetry CBC and BMP: 02/26/21 05:18 02/26/21 05:18 ABG, PT/INR, D-dimer: PT/INR, D-dimer PT 12.7 Sec. (12.2-14.9) 02/23/21 18:55 INR 0.90 (0.87-1.13) 02/23/21 18:55 Abnormal lab findings: Abnormal Labs 02/23/21 02/23/21 02/23/21 18:30 18:55 18:55 [place] % (Auto) 8.0 H Eos % (Auto) Lymph # (Auto) 0.8 L Seg Neutrophils % 75.3 H APTT 23.8 L Sodium Potassium Chloride Carbon Dioxide BUN Glucose POC Glucose > 600 H Hemoglobin A1c Calcium Alkaline Phosphatase Albumin 02/23/21 02/23/21 02/23/21 18:55 20:07 21:46 [place] % (Auto) Eos % (Auto) Lymph # (Auto) Seg Neutrophils % APTT Sodium 133 L Potassium 3.5 L D Chloride 97.8 L Carbon Dioxide 20 L D BUN 21 H 20 H Glucose 632 H* 333 H POC Glucose > 600 H Hemoglobin A1c Calcium 8.3 L Alkaline Phosphatase 144 H Albumin 3.6 L 02/24/21 02/24/21 02/24/21 04:31 04:54 04:54 [place] % (Auto) Eos % (Auto) Lymph # (Auto) Seg Neutrophils % APTT Sodium Potassium Chloride Carbon Dioxide BUN Glucose 301 H POC Glucose 264 H Hemoglobin A1c 10.9 H Calcium Alkaline Phosphatase Albumin 02/24/21 02/24/21 02/24/21 04:54 06:34 11:13 [place] % (Auto) 8.8 H Eos % (Auto) 4.5 H Lymph # (Auto) Seg Neutrophils % APTT Sodium Potassium Chloride Carbon Dioxide BUN Glucose POC Glucose 192 H 41 L Hemoglobin A1c Calcium Alkaline Phosphatase Albumin 02/24/21 02/24/21 02/24/21 12:14 15:06 19:22 [place] % (Auto) Eos % (Auto) Lymph # (Auto) Seg Neutrophils % APTT Sodium Potassium Chloride Carbon Dioxide BUN Glucose 247 H POC Glucose 166 H 207 H Hemoglobin A1c Calcium Alkaline Phosphatase Albumin 02/24/21 22:45 [place] % (Auto) Eos % (Auto) Lymph # (Auto) Seg Neutrophils % APTT Sodium Potassium Chloride Carbon Dioxide BUN Glucose 240 H POC Glucose Hemoglobin A1c Calcium 8.0 L Alkaline Phosphatase Albumin Chest x-ray: image reviewed Allied health notes reviewed: nursing
[2021-02-25] MEDS: HEPARIN 5,000 UNIT/1 ML VIAL SUB-Q SCH ×3 (05:48→21:25)
[2021-02-25] MEDS: LEVOTHYROXINE 50 MCG TAB PO SCH (05:48)
--- NOTE | 2021-02-25 08:24 | Progress Note ---
Assessment and Plan Assessment and plan: 70-year-old female with known history of coronary artery disease, hypertension, diabetes mellitus and thyroid cancer status post thyroidectomy presented to the emergency room yesterday(02/23/2021) with reportedly a syncopal episode hitting the back of her head. She was seen in the emergency room on 02/22/2021 with hypoglycemia right hip pain. She was evaluated and subsequently discharged home from the emergency room. She is said to be homeless and missed her transportation to a [facility] and therefore was in the hospital all day. She was said to have gone into the bathroom on the day of admission and subsequently became lightheaded and had a syncopal episode during which she hit the back of her head. Work-up in the emergency room today reveals a blood glucose of greater than 600, chest x-ray showed no acute findings, CT scan of the head shows moderate microvascular ischemic change, remote small deep infection which had been present in previous studies otherwise no intracranial abnormality. Urinalysis done about 24 hours ago also reveals mild UTI. Sepsis. Patient meets criteria given the tachycardia, tachypnea and diagnosis of UTI. UTI. Hypertension Diabetes mellitus type 2 Peripheral neuropathy CAD Thyroid cancer s/p thyroidectomy Homelessness DVT prophylaxis 02/24/2021. Follow-up blood and urine cultures. Continue IV antibiotics. Continue SSRI and Accu-Cheks. Hypoglycemia secondary to the IV fluids of D5W started by the admitting physician. We will discontinue D5 IV fluids and start normal saline. Transfer the patient to a medical floor. Patient complains of severe peripheral neuropathy and difficulty ambulating. PT/OT. Continue gabapentin. Case management follow-up for homelessness. 02/25/2021. Blood cultures negative x24 hours. Continue IV antibiotics. Continue 70/30 insulin 20 units twice daily. BG improved with discontinuation of D5 IV fluids. PT evaluation with regards to severe peripheral neuropathy and difficulty ambulating. Case management follow-up for homelessness. History Interval history: No new issues overnight. Hospitalist Physical - Constitutional Vitals: Temp Pulse Resp BP Pulse Ox 97.9 F 72 16 113/50 96 02/25/21 08:08 02/25/21 08:02 02/25/21 05:02 02/25/21 08:08 02/25/21 08:02 General appearance: Present: no acute distress, well-nourished - EENT Eyes: Present: PERRL, EOM intact ENT: hearing intact, clear oral mucosa, dentition normal - Neck Neck: Present: supple, normal ROM - Respiratory Respiratory effort: normal Respiratory: bilateral: CTA - Cardiovascular Rhythm: regular Heart Sounds: Present: S1 & S2. Absent: gallop, rub - Extremities Extremities: no ischemia, No edema, Full ROM - Abdominal General gastrointestinal: soft, non-tender, non-distended, normal bowel sounds - Integumentary Integumentary: Present: clear, warm, dry - Neurologic Neurologic: CNII-XII intact, moves all extremities HEART Score - HEART Score Troponin: Troponin T < 0.010 ng/mL (0.00-0.029) 02/23/21 18:55 Results - Labs CBC & Chem 7: 02/24/21 04:54 02/24/21 22:45 Labs: Laboratory Last Values WBC 6.5 K/mm3 (4.5-11.0) 02/24/21 04:54 RBC 4.21 M/mm3 (3.65-5.03) 02/24/21 04:54 Hgb 12.6 gm/dl (10.1-14.3) 02/24/21 04:54 Hct 37.1 % (30.3-42.9) 02/24/21 04:54 MCV 88 fl (79-97) 02/24/21 04:54 MCH 30 pg (28-32) 02/24/21 04:54 MCHC 34 % (30-34) 02/24/21 04:54 RDW 14.3 % (13.2-15.2) 02/24/21 04:54 Plt Count 202 K/mm3 (140-440) 02/24/21 04:54 Lymph % (Auto) 24.1 % (13.4-35.0) 02/24/21 04:54 [place] % (Auto) 8.8 % (0.0-7.3) H 02/24/21 04:54 Eos % (Auto) 4.5 % (0.0-4.3) H 02/24/21 04:54 Baso % (Auto) 0.9 % (0.0-1.8) 02/24/21 04:54 Lymph # (Auto) 1.6 K/mm3 (1.2-5.4) 02/24/21 04:54 [place] # (Auto) 0.6 K/mm3 (0.0-0.8) 02/24/21 04:54 Eos # (Auto) 0.3 K/mm3 (0.0-0.4) 02/24/21 04:54 Baso # (Auto) 0.1 K/mm3 (0.0-0.1) 02/24/21 04:54 Seg Neutrophils % 61.7 % (40.0-70.0) 02/24/21 04:54 Seg Neutrophils # 4.0 K/mm3 (1.8-7.7) 02/24/21 04:54 PT 12.7 Sec. (12.2-14.9) 02/23/21 18:55 INR 0.90 (0.87-1.13) 02/23/21 18:55 APTT 23.8 Sec. (24.2-36.6) L 02/23/21 18:55 VBG pH 7.402 (7.320-7.420) 02/23/21 18:55 Sodium 140 mmol/L (137-145) 02/24/21 22:45 Potassium 4.1 mmol/L (3.6-5.0) 02/24/21 22:45 Chloride 104.0 mmol/L (98-107) 02/24/21 22:45 Carbon Dioxide 24 mmol/L (22-30) 02/24/21 22:45 Anion Gap 16 mmol/L 02/24/21 22:45 BUN 13 mg/dL (7-17) 02/24/21 22:45 Creatinine 1.0 mg/dL (0.6-1.2) 02/24/21 22:45 Estimated GFR 55 ml/min 02/24/21 22:45 BUN/Creatinine Ratio 13 % 02/24/21 22:45 Glucose 240 mg/dL (65-100) H 02/24/21 22:45 POC Glucose 207 mg/dL (70-105) H 02/24/21 19:22 Hemoglobin A1c 10.9 % (4-6) H 02/24/21 04:54 Osmolality 319 Mosm/kg 02/23/21 18:55 Calcium 8.0 mg/dL (8.4-10.2) L 02/24/21 22:45 Phosphorus 3.90 mg/dL (2.5-4.5) 02/23/21 21:46 Magnesium 1.90 mg/dL (1.7-2.3) 02/23/21 21:46 Total Bilirubin 0.60 mg/dL (0.1-1.2) 02/23/21 18:55 Direct Bilirubin < 0.2 mg/dL (0-0.2) 02/23/21 18:55 Indirect Bilirubin 0.4 mg/dL 02/23/21 18:55 AST 22 units/L (5-40) 02/23/21 18:55 ALT 17 units/L (7-56) 02/23/21 18:55 Alkaline Phosphatase 144 units/L (35-129) H 02/23/21 18:55 Troponin T < 0.010 ng/mL (0.00-0.029) 02/23/21 18:55 NT-Pro-B Natriuret Pep 375.7 pg/mL (0-900) 02/23/21 18:55 Total Protein 6.5 g/dL (6.3-8.2) 02/23/21 18:55 Albumin 3.6 g/dL (3.9-5) L 02/23/21 18:55 Albumin/Globulin Ratio 1.2 % 02/23/21 18:55 Lipase 41 units/L (13-60) 02/23/21 18:55 TSH 0.911 mlU/mL (0.270-4.200) 02/23/21 20:04 Microbiology: Microbiology 02/23/21 20:11 Peripheral/Venous Blood Culture - Preliminary NO GROWTH AFTER 24 HOURS 02/23/21 20:04 Peripheral/Venous Blood Culture - Preliminary NO GROWTH AFTER 24 HOURS Sun/IV: Voiding Method Toilet Active Medications - Current Medications Current Medications: Generic Name Dose Route Start Last Admin Trade Name Freq PRN Reason Stop Dose Admin Acetaminophen 650 mg 02/23/21 22:18 Acetaminophen 325 Mg Tab PO Q6H PRN Pain MILD(1-3)/Fever >100.5/MELCHOR Albuterol 2.5 mg 02/24/21 11:32 Albuterol 2.5 Mg/3 Ml Nebu IH QIDRT PRN Wheezing Amlodipine Besylate 10 mg 02/25/21 10:00 Amlodipine 10 Mg Tab PO DAILY [facility]AL[facility] Aspirin 81 mg 02/25/21 10:00 Aspirin Ec 81 Mg Tab PO QDAY [facility] Atorvastatin Calcium 40 mg 02/24/21 22:00 02/24/21 22:05 Atorvastatin 40 Mg Tab PO 40 mg QHS [facility] Administration Baclofen 20 mg 02/24/21 11:02 Baclofen 10 Mg Tab PO Q12HR PRN Muscle Spasm Buspirone HCl 5 mg 02/24/21 14:00 02/24/21 21:17 Buspirone 5 Mg Tab PO 5 mg TID ROSALEE Administration Clopidogrel Bisulfate 75 mg 02/25/21 10:00 Clopidogrel 75 Mg Tab PO QDAY [facility] Dextrose 0 ml 02/23/21 21:42 Dextrose 50% In Water (25gm) 50 Ml Syringe IV Q30MIN PRN Hypoglycemia Protocol Gabapentin 600 mg 02/24/21 14:00 02/24/21 21:17 Gabapentin 300 Mg Cap PO 600 mg TID [facility]ALEE Administration Heparin Sodium (Porcine) 5,000 unit 02/24/21 06:00 02/25/21 05:48 Heparin 5,000 Unit/1 Ml Vial SUB-Q 5,000 unit Q8HR [facility] Administration Hydralazine HCl 25 mg 02/24/21 14:00 02/24/21 21:11 Hydralazine 25 Mg Tab PO Not Given TID [facility]EE Insulin Human Regular 100 100 mls @ 1 mls/hr 02/23/21 22:00 02/24/21 11:00 units/ Sodium Chloride IV Infused TITR [facility] Titration Protocol 1 UNITS/HR Sodium Chloride 1,000 mls @ 75 mls/hr 02/24/21 11:15 02/24/21 22:09 Nacl 0.9% 1000 Ml IV 75 mls/hr DIRECT [facility] Administration Ceftriaxone Sodium 2 gm in 100 mls @ 200 mls/hr 02/24/21 16:00 02/24/21 17:20 Rocephin/Ns 2 Gm/100 Ml IV 03/01/21 15:59 200 mls/hr Q24H [facility] Administration Protocol Insulin Human Isoph/Insulin Regular 20 unit 02/24/21 16:30 02/24/21 21:35 Insulin Nph/Regular 70/30 Inj SUB-Q 20 unit BIDAC [facility] Administration Levothyroxine Sodium 50 mcg 02/25/21 06:00 02/25/21 05:48 Levothyroxine 50 Mcg Tab PO 50 mcg DAILY@0600 [facility] Administration Magnesium Hydroxide 30 ml 02/23/21 22:18 Magnesium Hydroxide (Mom) Oral Liqd Udc PO Q4H PRN Constipation Metoprolol Tartrate 25 mg 02/25/21 10:00 Metoprolol Tartrate 25 Mg Tab PO QDAY [facility] Morphine Sulfate 2 mg 02/23/21 22:18 Morphine 2 Mg/1 Ml Inj IV Q4H PRN Pain, Moderate (4-6) Morphine Sulfate 4 mg 02/23/21 22:18 02/24/21 03:55 Morphine 4 Mg/1 Ml Inj IV 4 mg Q4H PRN Administration Pain , Severe (7-10) Ondansetron HCl 4 mg 02/23/21 22:18 02/24/21 03:55 Ondansetron 4 Mg/2 Ml Inj IV 4 mg Q8H PRN Administration Nausea And Vomiting Senna/Docusate Sodium 1 tab 02/24/21 22:00 02/24/21 22:06 Sennosides/Docusate Sodium 8.6/50 Mg Tab PO 1 tab QHS [facility] Administration Sodium Chloride 10 ml 02/24/21 10:00 02/24/21 22:07 Sodium Chloride 0.9% 10 Ml Flush Syringe IV 10 ml BID [facility] Administration Sodium Chloride 10 ml 02/23/21 22:18 Sodium Chloride 0.9% 10 Ml Flush Syringe IV PRN PRN LINE FLUSH Trazodone HCl 150 mg 02/24/21 22:00 02/24/21 22:43 Trazodone 50 Mg Tab PO 150 mg QHS [facility] Administration Nutrition/Malnutrition Assess - Dietary Evaluation Nutrition/Malnutrition Findings: Nutrition Notes Start: 02/24/21 07:41 Freq: Status: Active Protocol: Document 02/24/21 07:41 (Rec: 02/24/21 07:46 MK [id number]) Nutrition Notes Need for Assessment generated from: MD Order Initial or Follow up Brief Note Current Diagnosis Coronary Artery Disease, Diabetes,Hypertension Other Pertinent Diagnosis thyroid cancer s/p thyroidectomy, syncope, UTI Labs/Tests A1c 10.9 Subjective/Other Information MD consult for diet education. Pt with DKA due to inability to afford insulin. Pt is experiencing homelessness. Pt on hold in ED. Nutrition Intervention Follow-Up By: 02/28/21 Additional Comments F/u: diet education
[2021-02-25] MEDS: INSULIN NPH/REGULAR 70/30 INJ SUB-Q SCH ×2 (10:22→17:21)
[2021-02-25] MEDS: busPIRone 5 MG TAB PO SCH ×3 (10:23→21:24)
[2021-02-25] MEDS: METOPROLOL TARTRATE 25 MG TAB PO SCH (10:23)
[2021-02-25] MEDS: hydrALAZINE 25 MG TAB PO SCH ×3 (10:23→21:24)
[2021-02-25] MEDS: ASPIRIN EC 81 MG TAB PO SCH (10:23)
[2021-02-25] MEDS: GABAPENTIN 300 MG CAP PO SCH ×3 (10:23→21:24)
[2021-02-25] MEDS: CLOPIDOGREL 75 MG TAB PO SCH (10:23)
[2021-02-25] MEDS: amLODIPine 10 MG TAB PO SCH (10:23)
[2021-02-25] MEDS: SODIUM CHLORIDE 0.9% 1000 ML 1,000 ML IV SCH (10:25)
[2021-02-25] MEDS: cefTRIAXone/NS 2 GM/100 ML 2 GM/100 ML BAG IV SCH (17:28)
[2021-02-25] MEDS: SENNOSIDES/DOCUSATE SODIUM 8.6/50 MG TAB PO SCH (21:24)
[2021-02-25] MEDS: traZODone 50 MG TAB PO SCH (21:24)
[2021-02-26] MEDS: HEPARIN 5,000 UNIT/1 ML VIAL SUB-Q SCH ×3 (05:17→21:44)
[2021-02-26] MEDS: LEVOTHYROXINE 50 MCG TAB PO SCH (05:18)
[2021-02-26] MEDS: MORPHINE 2 MG/1 ML INJ IV PRN (05:34)
[2021-02-26 06:38] LABS: Basophils # (Auto) 0.1 K/mm3 (0.0-0.1); Eosinophils # (Auto) 0.3 K/mm3 (0.0-0.4); Eosinophils % (Auto) 5.7 % (0.0-4.3); Hematocrit 35.8 % (30.3-42.9); Lymphocytes # (Auto) 2.1 K/mm3 (1.2-5.4); Lymphocytes % (Auto) 36.1 % (13.4-35.0); Mean Corpuscular HGB Conc 34 % (30-34); Mean Corpuscular Volume 90 fl (79-97); Monocytes # (Auto) 0.5 K/mm3 (0.0-0.8); Monocytes % (Auto) 7.9 % (0.0-7.3); Platelet Count 193 K/mm3 (140-440); Red Blood Count 3.98 M/mm3 (3.65-5.03); Red Cell Distribution Width 14.6 % (13.2-15.2)
[2021-02-26 06:47] LABS: Calcium 8.2 mg/dL (8.4-10.2)
--- NOTE | 2021-02-26 09:00 | Progress Note ---
Assessment and Plan Assessment and plan: 70-year-old female with known history of coronary artery disease, hypertension, diabetes mellitus and thyroid cancer status post thyroidectomy presented to the emergency room yesterday(02/23/2021) with reportedly a syncopal episode hitting the back of her head. She was seen in the emergency room on 02/22/2021 with hypoglycemia right hip pain. She was evaluated and subsequently discharged home from the emergency room. She is said to be homeless and missed her transportation to a jail and therefore was in the hospital all day. She was said to have gone into the bathroom on the day of admission and subsequently became lightheaded and had a syncopal episode during which she hit the back of her head. Work-up in the emergency room today reveals a blood glucose of greater than 600, chest x-ray showed no acute findings, CT scan of the head shows moderate microvascular ischemic change, remote small deep infection which had been present in previous studies otherwise no intracranial abnormality. Urinalysis done about 24 hours ago also reveals mild UTI. Sepsis. Patient meets criteria given the tachycardia, tachypnea and diagnosis of UTI. UTI. Hypertension Diabetes mellitus type 2 Peripheral neuropathy CAD Thyroid cancer s/p thyroidectomy Homelessness DVT prophylaxis 02/24/2021. Follow-up blood and urine cultures. Continue IV antibiotics. Continue SSRI and Accu-Cheks. Hypoglycemia secondary to the IV fluids of D5W started by the admitting physician. We will discontinue D5 IV fluids and start normal saline. Transfer the patient to a medical floor. Patient complains of severe peripheral neuropathy and difficulty ambulating. PT/OT. Continue gabapentin. Case management follow-up for homelessness. 02/25/2021. Blood cultures negative x24 hours. Continue IV antibiotics. Continue 70/30 insulin 20 units twice daily. BG improved with discontinuation of D5 IV fluids. PT evaluation with regards to severe peripheral neuropathy and difficulty ambulating. Case management follow-up for homelessness. 02/26/2021. Blood and urine cultures remain negative. Consider discontinuation of antibiotics. BG is well controlled. Await PT evaluation and case management recommendations for discharge planning. History Interval history: No new issues overnight. Hospitalist Physical - Constitutional Vitals: Temp Pulse Resp BP Pulse Ox 98.1 F 76 18 140/67 91 02/26/21 08:22 02/26/21 08:08 02/26/21 04:19 02/26/21 08:22 02/26/21 08:08 General appearance: Present: no acute distress, well-nourished - EENT Eyes: Present: PERRL, EOM intact ENT: hearing intact, clear oral mucosa, dentition normal - Neck Neck: Present: supple, normal ROM - Respiratory Respiratory effort: normal Respiratory: bilateral: CTA - Cardiovascular Rhythm: regular Heart Sounds: Present: S1 & S2. Absent: gallop, rub - Extremities Extremities: no ischemia, No edema, Full ROM - Abdominal General gastrointestinal: soft, non-tender, non-distended, normal bowel sounds - Integumentary Integumentary: Present: clear, warm, dry - Neurologic Neurologic: CNII-XII intact, moves all extremities HEART Score - HEART Score Troponin: Troponin T < 0.010 ng/mL (0.00-0.029) 02/23/21 18:55 Results - Labs CBC & Chem 7: 02/26/21 05:18 02/26/21 05:18 Labs: Laboratory Last Values WBC 5.9 K/mm3 (4.5-11.0) 02/26/21 05:18 RBC 3.98 M/mm3 (3.65-5.03) 02/26/21 05:18 Hgb 12.0 gm/dl (10.1-14.3) 02/26/21 05:18 Hct 35.8 % (30.3-42.9) 02/26/21 05:18 MCV 90 fl (79-97) 02/26/21 05:18 MCH 30 pg (28-32) 02/26/21 05:18 MCHC 34 % (30-34) 02/26/21 05:18 RDW 14.6 % (13.2-15.2) 02/26/21 05:18 Plt Count 193 K/mm3 (140-440) 02/26/21 05:18 Lymph % (Auto) 36.1 % (13.4-35.0) H 02/26/21 05:18 [place] % (Auto) 7.9 % (0.0-7.3) H 02/26/21 05:18 Eos % (Auto) 5.7 % (0.0-4.3) H 02/26/21 05:18 Baso % (Auto) 1.0 % (0.0-1.8) 02/26/21 05:18 Lymph # (Auto) 2.1 K/mm3 (1.2-5.4) 02/26/21 05:18 [place] # (Auto) 0.5 K/mm3 (0.0-0.8) 02/26/21 05:18 Eos # (Auto) 0.3 K/mm3 (0.0-0.4) 02/26/21 05:18 Baso # (Auto) 0.1 K/mm3 (0.0-0.1) 02/26/21 05:18 Seg Neutrophils % 49.3 % (40.0-70.0) 02/26/21 05:18 Seg Neutrophils # 2.9 K/mm3 (1.8-7.7) 02/26/21 05:18 PT 12.7 Sec. (12.2-14.9) 02/23/21 18:55 INR 0.90 (0.87-1.13) 02/23/21 18:55 APTT 23.8 Sec. (24.2-36.6) L 02/23/21 18:55 VBG pH 7.402 (7.320-7.420) 02/23/21 18:55 Sodium 144 mmol/L (137-145) 02/26/21 05:18 Potassium 4.2 mmol/L (3.6-5.0) 02/26/21 05:18 Chloride 109.0 mmol/L (98-107) H 02/26/21 05:18 Carbon Dioxide 27 mmol/L (22-30) 02/26/21 05:18 Anion Gap 12 mmol/L 02/26/21 05:18 BUN 15 mg/dL (7-17) 02/26/21 05:18 Creatinine 1.0 mg/dL (0.6-1.2) 02/26/21 05:18 Estimated GFR 55 ml/min 02/26/21 05:18 BUN/Creatinine Ratio 15 % 02/26/21 05:18 Glucose 165 mg/dL (65-100) H 02/26/21 05:18 POC Glucose 205 mg/dL (70-105) H 02/26/21 07:38 Hemoglobin A1c 10.9 % (4-6) H 02/24/21 04:54 Osmolality 319 Mosm/kg 02/23/21 18:55 Calcium 8.2 mg/dL (8.4-10.2) L 02/26/21 05:18 Phosphorus 3.90 mg/dL (2.5-4.5) 02/23/21 21:46 Magnesium 1.90 mg/dL (1.7-2.3) 02/23/21 21:46 Total Bilirubin 0.60 mg/dL (0.1-1.2) 02/23/21 18:55 Direct Bilirubin < 0.2 mg/dL (0-0.2) 02/23/21 18:55 Indirect Bilirubin 0.4 mg/dL 02/23/21 18:55 AST 22 units/L (5-40) 02/23/21 18:55 ALT 17 units/L (7-56) 02/23/21 18:55 Alkaline Phosphatase 144 units/L (35-129) H 02/23/21 18:55 Troponin T < 0.010 ng/mL (0.00-0.029) 02/23/21 18:55 NT-Pro-B Natriuret Pep 375.7 pg/mL (0-900) 02/23/21 18:55 Total Protein 6.5 g/dL (6.3-8.2) 02/23/21 18:55 Albumin 3.6 g/dL (3.9-5) L 02/23/21 18:55 Albumin/Globulin Ratio 1.2 % 02/23/21 18:55 Lipase 41 units/L (13-60) 02/23/21 18:55 TSH 0.911 mlU/mL (0.270-4.200) 02/23/21 20:04 Microbiology: Microbiology 02/24/21 Unknown Urine,Clean Catch Urine Culture - Final NO GROWTH AFTER 48 HOURS 02/23/21 20:11 Peripheral/Venous Blood Culture - Preliminary NO GROWTH AFTER 48 HOURS 02/23/21 20:04 Peripheral/Venous Blood Culture - Preliminary NO GROWTH AFTER 48 HOURS Sun/IV: Voiding Method Bedside Commode Active Medications - Current Medications Current Medications: Generic Name Dose Route Start Last Admin Trade Name Freq PRN Reason Stop Dose Admin Acetaminophen 650 mg 02/23/21 22:18 Acetaminophen 325 Mg Tab PO Q6H PRN Pain MILD(1-3)/Fever >100.5/MELCHOR Albuterol 2.5 mg 02/24/21 11:32 Albuterol 2.5 Mg/3 Ml Nebu IH QIDRT PRN Wheezing Amlodipine Besylate 10 mg 02/25/21 10:00 02/25/21 10:23 Amlodipine 10 Mg Tab PO 10 mg DAILY ROSALEE Administration Aspirin 81 mg 02/25/21 10:00 02/25/21 10:23 Aspirin Ec 81 Mg Tab PO 81 mg QDAY ROSALEE Administration Atorvastatin Calcium 40 mg 02/24/21 22:00 02/25/21 21:24 Atorvastatin 40 Mg Tab PO 40 mg QHS ROSALEE Administration Baclofen 20 mg 02/24/21 11:02 Baclofen 10 Mg Tab PO Q12HR PRN Muscle Spasm Buspirone HCl 5 mg 02/24/21 14:00 02/25/21 21:24 Buspirone 5 Mg Tab PO 5 mg TID ROSALEE Administration Clopidogrel Bisulfate 75 mg 02/25/21 10:00 02/25/21 10:23 Clopidogrel 75 Mg Tab PO 75 mg QDAY ROSALEE Administration Dextrose 0 ml 02/23/21 21:42 Dextrose 50% In Water (25gm) 50 Ml Syringe IV Q30MIN PRN Hypoglycemia Protocol Gabapentin 600 mg 02/24/21 14:00 02/25/21 21:24 Gabapentin 300 Mg Cap PO 600 mg TID ROSALEE Administration Heparin Sodium (Porcine) 5,000 unit 02/24/21 06:00 02/26/21 05:17 Heparin 5,000 Unit/1 Ml Vial SUB-Q 5,000 unit Q8HR ROSALEE Administration Hydralazine HCl 25 mg 02/24/21 14:00 02/25/21 21:24 Hydralazine 25 Mg Tab PO 25 mg TID ROSALEE Administration Insulin Human Regular 100 100 mls @ 1 mls/hr 02/23/21 22:00 02/24/21 11:00 units/ Sodium Chloride IV Infused TITR ROSALEE Titration Protocol 1 UNITS/HR Sodium Chloride 1,000 mls @ 75 mls/hr 02/24/21 11:15 02/25/21 10:25 Nacl 0.9% 1000 Ml IV 75 mls/hr DIRECT ROSALEE Administration Ceftriaxone Sodium 2 gm in 100 mls @ 200 mls/hr 02/24/21 16:00 02/25/21 17:28 Rocephin/Ns 2 Gm/100 Ml IV 03/01/21 15:59 200 mls/hr Q24H ROSALEE Administration Protocol Insulin Human Isoph/Insulin Regular 20 unit 02/24/21 16:30 02/25/21 17:21 Insulin Nph/Regular 70/30 Inj SUB-Q Not Given BIDAC ROSALEE Levothyroxine Sodium 50 mcg 02/25/21 06:00 02/26/21 05:18 Levothyroxine 50 Mcg Tab PO 50 mcg DAILY@0600 ROSALEE Administration Magnesium Hydroxide 30 ml 02/23/21 22:18 Magnesium Hydroxide (Mom) Oral Liqd Udc PO Q4H PRN Constipation Metoprolol Tartrate 25 mg 02/25/21 10:00 02/25/21 10:23 Metoprolol Tartrate 25 Mg Tab PO 25 mg QDAY ROSALEE Administration Morphine Sulfate 2 mg 02/23/21 22:18 02/26/21 05:34 Morphine 2 Mg/1 Ml Inj IV 2 mg Q4H PRN Administration Pain, Moderate (4-6) Morphine Sulfate 4 mg 02/23/21 22:18 02/24/21 03:55 Morphine 4 Mg/1 Ml Inj IV 4 mg Q4H PRN Administration Pain , Severe (7-10) Ondansetron HCl 4 mg 02/23/21 22:18 02/24/21 03:55 Ondansetron 4 Mg/2 Ml Inj IV 4 mg Q8H PRN Administration Nausea And Vomiting Senna/Docusate Sodium 1 tab 02/24/21 22:00 02/25/21 21:24 Sennosides/Docusate Sodium 8.6/50 Mg Tab PO 1 tab QHS ROSALEE Administration Sodium Chloride 10 ml 02/24/21 10:00 02/25/21 21:25 Sodium Chloride 0.9% 10 Ml Flush Syringe IV 10 ml BID ROSALEE Administration Sodium Chloride 10 ml 02/23/21 22:18 Sodium Chloride 0.9% 10 Ml Flush Syringe IV PRN PRN LINE FLUSH Trazodone HCl 150 mg 02/24/21 22:00 02/25/21 21:24 Trazodone 50 Mg Tab PO 150 mg QHS ROSALEE Administration Nutrition/Malnutrition Assess - Dietary Evaluation Nutrition/Malnutrition Findings: Nutrition Notes Start: 02/24/21 07:41 Freq: Status: Active Protocol: Document 02/24/21 07:41 JOY (Rec: 02/24/21 07:46 JOY [email or web address]) Nutrition Notes Need for Assessment generated from: MD Order Initial or Follow up Brief Note Current Diagnosis Coronary Artery Disease, Diabetes,Hypertension Other Pertinent Diagnosis thyroid cancer s/p thyroidectomy, syncope, UTI Labs/Tests A1c 10.9 Subjective/Other Information MD consult for diet education. Pt with DKA due to inability to afford insulin. Pt is experiencing homelessness. Pt on hold in ED. Nutrition Intervention Follow-Up By: 02/28/21 Additional Comments F/u: diet education
[2021-02-26] MEDS: METOPROLOL TARTRATE 25 MG TAB PO SCH (10:43)
[2021-02-26] MEDS: ASPIRIN EC 81 MG TAB PO SCH (10:43)
[2021-02-26] MEDS: amLODIPine 10 MG TAB PO SCH (10:43)
[2021-02-26] MEDS: INSULIN NPH/REGULAR 70/30 INJ SUB-Q SCH ×2 (10:43→17:29)
[2021-02-26] MEDS: CLOPIDOGREL 75 MG TAB PO SCH (10:43)
[2021-02-26] MEDS: hydrALAZINE 25 MG TAB PO SCH ×3 (10:46→21:36)
[2021-02-26] MEDS: busPIRone 5 MG TAB PO SCH ×3 (10:46→21:36)
[2021-02-26] MEDS: GABAPENTIN 300 MG CAP PO SCH ×3 (10:46→21:36)
[2021-02-26] MEDS: SODIUM CHLORIDE 0.9% 1000 ML 1,000 ML IV SCH (10:46)
[2021-02-26] MEDS: cefTRIAXone/NS 2 GM/100 ML 2 GM/100 ML BAG IV SCH (15:09)
[2021-02-26] MEDS: INSULIN LISPRO 100 UNIT/ML SUB-Q SCH ×2 (17:29→21:52)
--- NOTE | 2021-02-26 21:03 | Progress Note ---
Assessment and Plan Sepsis secondary to UTI. Hypertension Diabetes mellitus type 2 Peripheral neuropathy h/o CAD Thyroid cancer s/p thyroidectomy -Continue with antibiotics. De-escalate based on culture data and clinical response Blood cultures negative x24 hours. -Accuchecks with glycemic control, target blood glucose 140-180mg/dL, avoid hypoglycemia -VTE prophylaxis -Monitor hemodynamics closely -Chronic home medications as clinically indicated -PT/OT increase activity as tolerated Discharge planning Subjective Date of service: 02/26/21 Interval history: Follow up for Sepsis secondary to UTI; Hyperglycemia; s/p fall with negative imaging Seen and examined. Vitals, labs, medications, chart , imaging reviewed. No adverse overnight events, she denies any chest pain, no shortness of breath, no fevers or chills, no nausea or vomiting. No new complaints Objective - Exam Narrative Exam: - EENT Eyes: Present: PERRL, EOM intact ENT: hearing intact, clear oral mucosa, dentition normal - Neck Neck: Present: supple, normal ROM - Respiratory Respiratory effort: normal Respiratory: bilateral: CTA - Cardiovascular Rhythm: regular Heart Sounds: Present: S1 & S2. Absent: gallop, rub - Extremities Extremities: no ischemia, No edema, some tenderness on right hip. - Abdominal General gastrointestinal: soft, non-tender, non-distended, normal bowel sounds - Integumentary Integumentary: Present: clear, warm, dry - Neurologic Neurologic: CNII-XII intact, moves all extremities Vital Signs - 12hr 02/26/21 02/26/21 02/26/21 10:00 20:36 20:38 Pulse Rate 79 79 O2 Sat by Pulse 96 98 Oximetry CBC and BMP: 02/26/21 05:18 02/26/21 05:18 ABG, PT/INR, D-dimer: PT/INR, D-dimer PT 12.7 Sec. (12.2-14.9) 02/23/21 18:55 INR 0.90 (0.87-1.13) 02/23/21 18:55 Abnormal lab findings: Abnormal Labs 02/23/21 02/23/21 02/23/21 18:30 18:55 18:55 Lymph % (Auto) [place] % (Auto) 8.0 H Eos % (Auto) Lymph # (Auto) 0.8 L Seg Neutrophils % 75.3 H APTT 23.8 L Sodium Potassium Chloride Carbon Dioxide BUN Glucose POC Glucose > 600 H Hemoglobin A1c Calcium Alkaline Phosphatase Albumin 02/23/21 02/23/21 02/23/21 18:55 20:07 21:46 Lymph % (Auto) [place] % (Auto) Eos % (Auto) Lymph # (Auto) Seg Neutrophils % APTT Sodium 133 L Potassium 3.5 L D Chloride 97.8 L Carbon Dioxide 20 L D BUN 21 H 20 H Glucose 632 H* 333 H POC Glucose > 600 H Hemoglobin A1c Calcium 8.3 L Alkaline Phosphatase 144 H Albumin 3.6 L 02/24/21 02/24/21 02/24/21 04:31 04:54 04:54 Lymph % (Auto) [place] % (Auto) Eos % (Auto) Lymph # (Auto) Seg Neutrophils % APTT Sodium Potassium Chloride Carbon Dioxide BUN Glucose 301 H POC Glucose 264 H Hemoglobin A1c 10.9 H Calcium Alkaline Phosphatase Albumin 02/24/21 02/24/21 02/24/21 04:54 06:34 11:13 Lymph % (Auto) [place] % (Auto) 8.8 H Eos % (Auto) 4.5 H Lymph # (Auto) Seg Neutrophils % APTT Sodium Potassium Chloride Carbon Dioxide BUN Glucose POC Glucose 192 H 41 L Hemoglobin A1c Calcium Alkaline Phosphatase Albumin 02/24/21 02/24/21 02/24/21 12:14 15:06 19:22 Lymph % (Auto) [place] % (Auto) Eos % (Auto) Lymph # (Auto) Seg Neutrophils % APTT Sodium Potassium Chloride Carbon Dioxide BUN Glucose 247 H POC Glucose 166 H 207 H Hemoglobin A1c Calcium Alkaline Phosphatase Albumin 02/24/21 02/25/21 02/25/21 22:45 10:16 12:23 Lymph % (Auto) [place] % (Auto) Eos % (Auto) Lymph # (Auto) Seg Neutrophils % APTT Sodium Potassium Chloride Carbon Dioxide BUN Glucose 240 H POC Glucose 195 H 152 H Hemoglobin A1c Calcium 8.0 L Alkaline Phosphatase Albumin 02/25/21 02/25/21 02/26/21 17:10 18:21 05:18 Lymph % (Auto) 36.1 H [place] % (Auto) 7.9 H Eos % (Auto) 5.7 H Lymph # (Auto) Seg Neutrophils % APTT Sodium Potassium Chloride Carbon Dioxide BUN Glucose POC Glucose 33 L 67 L Hemoglobin A1c Calcium Alkaline Phosphatase Albumin 02/26/21 02/26/2102/26/21 05:18 07:38 11:06 Lymph % (Auto) [place] % (Auto) Eos % (Auto) Lymph # (Auto) Seg Neutrophils % APTT Sodium Potassium Chloride 109.0 H Carbon Dioxide BUN Glucose 165 H POC Glucose 205 H 305 H Hemoglobin A1c Calcium 8.2 L Alkaline Phosphatase Albumin 02/26/21 16:40 Lymph % (Auto) [place] % (Auto) Eos % (Auto) Lymph # (Auto) Seg Neutrophils % APTT Sodium Potassium Chloride Carbon Dioxide BUN Glucose POC Glucose 197 H Hemoglobin A1c Calcium Alkaline Phosphatase Albumin
[2021-02-26] MEDS: SENNOSIDES/DOCUSATE SODIUM 8.6/50 MG TAB PO SCH (21:36)
[2021-02-26] MEDS: traZODone 50 MG TAB PO SCH (21:40)
[2021-02-27] MEDS: MORPHINE 2 MG/1 ML INJ IV PRN ×3 (03:34→21:49)
[2021-02-27] MEDS: HEPARIN 5,000 UNIT/1 ML VIAL SUB-Q SCH ×3 (05:27→21:49)
[2021-02-27] MEDS: LEVOTHYROXINE 50 MCG TAB PO SCH (05:27)
[2021-02-27] MEDS: METOPROLOL TARTRATE 25 MG TAB PO SCH (08:22)
[2021-02-27] MEDS: INSULIN NPH/REGULAR 70/30 INJ SUB-Q SCH ×2 (08:22→16:56)
[2021-02-27] MEDS: INSULIN LISPRO 100 UNIT/ML SUB-Q SCH ×4 (08:22→22:00)
--- NOTE | 2021-02-27 08:24 | Progress Note ---
Assessment and Plan Assessment and plan: 70-year-old female with known history of coronary artery disease, hypertension, diabetes mellitus and thyroid cancer status post thyroidectomy presented to the emergency room yesterday(02/23/2021) with reportedly a syncopal episode hitting the back of her head. She was seen in the emergency room on 02/22/2021 with hypoglycemia right hip pain. She was evaluated and subsequently discharged home from the emergency room. She is said to be homeless and missed her transportation to a nursing home and therefore was in the hospital all day. She was said to have gone into the bathroom on the day of admission and subsequently became lightheaded and had a syncopal episode during which she hit the back of her head. Work-up in the emergency room today reveals a blood glucose of greater than 600, chest x-ray showed no acute findings, CT scan of the head shows moderate microvascular ischemic change, remote small deep infection which had been present in previous studies otherwise no intracranial abnormality. Urinalysis done about 24 hours ago also reveals mild UTI. Sepsis. Patient meets criteria given the tachycardia, tachypnea and diagnosis of UTI. UTI. Hypertension Diabetes mellitus type 2 Peripheral neuropathy CAD Thyroid cancer s/p thyroidectomy Homelessness DVT prophylaxis 02/24/2021. Follow-up blood and urine cultures. Continue IV antibiotics. Continue SSRI and Accu-Cheks. Hypoglycemia secondary to the IV fluids of D5W started by the admitting physician. We will discontinue D5 IV fluids and start normal saline. Transfer the patient to a medical floor. Patient complains of severe peripheral neuropathy and difficulty ambulating. PT/OT. Continue gabapentin. Case management follow-up for homelessness. 02/25/2021. Blood cultures negative x24 hours. Continue IV antibiotics. Continue 70/30 insulin 20 units twice daily. BG improved with discontinuation of D5 IV fluids. PT evaluation with regards to severe peripheral neuropathy and difficulty ambulating. Case management follow-up for homelessness. 02/26/2021. Blood and urine cultures remain negative. Consider discontinuation of antibiotics. BG is well controlled. Await PT evaluation and case management recommendations for discharge planning. 02/27/2021. Blood and urine cultures remain negative. Consider discontinuation of antibiotics. BG is well controlled. Await PT evaluation and case management recommendations for discharge planning. Patient complains of right hip pain today but did not previously report any pain associated with her syncope on 02/23. Check right hip films. History Interval history: No new issues overnight. Hospitalist Physical - Constitutional Vitals: Temp Pulse Resp BP Pulse Ox 98.4 F 73 18 143/65 96 02/27/21 04:37 02/27/21 04:37 02/27/21 04:37 02/27/21 04:37 02/27/21 04:37 General appearance: Present: no acute distress, well-nourished - EENT Eyes: Present: PERRL, EOM intact ENT: hearing intact, clear oral mucosa, dentition normal - Neck Neck: Present: supple, normal ROM - Respiratory Respiratory effort: normal Respiratory: bilateral: CTA - Cardiovascular Rhythm: regular Heart Sounds: Present: S1 & S2. Absent: gallop, rub - Extremities Extremities: no ischemia, No edema, Full ROM - Abdominal General gastrointestinal: soft, non-tender, non-distended, normal bowel sounds - Integumentary Integumentary: Present: clear, warm, dry - Neurologic Neurologic: CNII-XII intact, moves all extremities HEART Score - HEART Score Troponin: Troponin T < 0.010 ng/mL (0.00-0.029) 02/23/21 18:55 Results - Labs CBC & Chem 7: 02/26/21 05:18 02/26/21 05:18 Labs: Laboratory Last Values WBC 5.9 K/mm3 (4.5-11.0) 02/26/21 05:18 RBC 3.98 M/mm3 (3.65-5.03) 02/26/21 05:18 Hgb 12.0 gm/dl (10.1-14.3) 02/26/21 05:18 Hct 35.8 % (30.3-42.9) 02/26/21 05:18 MCV 90 fl (79-97) 02/26/21 05:18 MCH 30 pg (28-32) 02/26/21 05:18 MCHC 34 % (30-34) 02/26/21 05:18 RDW 14.6 % (13.2-15.2) 02/26/21 05:18 Plt Count 193 K/mm3 (140-440) 02/26/21 05:18 Lymph % (Auto) 36.1 % (13.4-35.0) H 02/26/21 05:18 [place] % (Auto) 7.9 % (0.0-7.3) H 02/26/21 05:18 Eos % (Auto) 5.7 % (0.0-4.3) H 02/26/21 05:18 Baso % (Auto) 1.0 % (0.0-1.8) 02/26/21 05:18 Lymph # (Auto) 2.1 K/mm3 (1.2-5.4) 02/26/21 05:18 [place] # (Auto) 0.5 K/mm3 (0.0-0.8) 02/26/21 05:18 Eos # (Auto) 0.3 K/mm3 (0.0-0.4) 02/26/21 05:18 Baso # (Auto) 0.1 K/mm3 (0.0-0.1) 02/26/21 05:18 Seg Neutrophils % 49.3 % (40.0-70.0) 02/26/21 05:18 Seg Neutrophils # 2.9 K/mm3 (1.8-7.7) 02/26/21 05:18 PT 12.7 Sec. (12.2-14.9) 02/23/21 18:55 INR 0.90 (0.87-1.13) 02/23/21 18:55 APTT 23.8 Sec. (24.2-36.6) L 02/23/21 18:55 VBG pH 7.402 (7.320-7.420) 02/23/21 18:55 Sodium 144 mmol/L (137-145) 02/26/21 05:18 Potassium 4.2 mmol/L (3.6-5.0) 02/26/21 05:18 Chloride 109.0 mmol/L (98-107) H 02/26/21 05:18 Carbon Dioxide 27 mmol/L (22-30) 02/26/21 05:18 Anion Gap 12 mmol/L 02/26/21 05:18 BUN 15 mg/dL (7-17) 02/26/21 05:18 Creatinine 1.0 mg/dL (0.6-1.2) 02/26/21 05:18 Estimated GFR 55 ml/min 02/26/21 05:18 BUN/Creatinine Ratio 15 % 02/26/21 05:18 Glucose 165 mg/dL (65-100) H 02/26/21 05:18 POC Glucose 195 mg/dL (70-105) H 02/27/21 07:45 Hemoglobin A1c 10.9 % (4-6) H 02/24/21 04:54 Osmolality 319 Mosm/kg 02/23/21 18:55 Calcium 8.2 mg/dL (8.4-10.2) L 02/26/21 05:18 Phosphorus 3.90 mg/dL (2.5-4.5) 02/23/21 21:46 Magnesium 1.90 mg/dL (1.7-2.3) 02/23/21 21:46 Total Bilirubin 0.60 mg/dL (0.1-1.2) 02/23/21 18:55 Direct Bilirubin < 0.2 mg/dL (0-0.2) 02/23/21 18:55 Indirect Bilirubin 0.4 mg/dL 02/23/21 18:55 AST 22 units/L (5-40) 02/23/21 18:55 ALT 17 units/L (7-56) 02/23/21 18:55 Alkaline Phosphatase 144 units/L (35-129) H 02/23/21 18:55 Troponin T < 0.010 ng/mL (0.00-0.029) 02/23/21 18:55 NT-Pro-B Natriuret Pep 375.7 pg/mL (0-900) 02/23/21 18:55 Total Protein 6.5 g/dL (6.3-8.2) 02/23/21 18:55 Albumin 3.6 g/dL (3.9-5) L 02/23/21 18:55 Albumin/Globulin Ratio 1.2 % 02/23/21 18:55 Lipase 41 units/L (13-60) 02/23/21 18:55 TSH 0.911 mlU/mL (0.270-4.200) 02/23/21 20:04 Microbiology: Microbiology 02/23/21 20:11 Peripheral/Venous Blood Culture - Preliminary NO GROWTH AFTER 72 HOURS 02/23/21 20:04 Peripheral/Venous Blood Culture - Preliminary NO GROWTH AFTER 72 HOURS 02/24/21 Unknown Urine,Clean Catch Urine Culture - Final NO GROWTH AFTER 48 HOURS Sun/IV: Voiding Method Toilet Active Medications - Current Medications Current Medications: Generic Name Dose Route Start Last Admin Trade Name Freq PRN Reason Stop Dose Admin Acetaminophen 650 mg 02/23/21 22:18 Acetaminophen 325 Mg Tab PO Q6H PRN Pain MILD(1-3)/Fever >100.5/MELCHOR Albuterol 2.5 mg 02/24/21 11:32 Albuterol 2.5 Mg/3 Ml Nebu IH QIDRT PRN Wheezing Amlodipine Besylate 10 mg 02/25/21 10:00 02/26/21 10:43 Amlodipine 10 Mg Tab PO 10 mg DAILY ROSALEE Administration Aspirin 81 mg 02/25/21 10:00 02/26/21 10:43 Aspirin Ec 81 Mg Tab PO 81 mg QDAY ROSALEE Administration Atorvastatin Calcium 40 mg 02/24/21 22:00 02/26/21 21:36 Atorvastatin 40 Mg Tab PO 40 mg QHS ROSALEE Administration Baclofen 20 mg 02/24/21 11:02 02/26/21 14:08 Baclofen 10 Mg Tab PO 20 mg Q12HR PRN Administration Muscle Spasm Buspirone HCl 5 mg 02/24/21 14:00 02/26/21 21:36 Buspirone 5 Mg Tab PO 5 mg TID ROSALEE Administration Clopidogrel Bisulfate 75 mg 02/25/21 10:00 02/26/21 10:43 Clopidogrel 75 Mg Tab PO 75 mg QDAY ROSALEE Administration Dextrose 0 ml 02/23/21 21:42 Dextrose 50% In Water (25gm) 50 Ml Syringe IV Q30MIN PRN Hypoglycemia Protocol Gabapentin 600 mg 02/24/21 14:00 02/26/21 21:36 Gabapentin 300 Mg Cap PO 600 mg TID ROSALEE Administration Heparin Sodium (Porcine) 5,000 unit 02/24/21 06:00 02/27/21 05:27 Heparin 5,000 Unit/1 Ml Vial SUB-Q 5,000 unit Q8HR ROSALEE Administration Hydralazine HCl 25 mg 02/24/21 14:00 02/26/21 21:36 Hydralazine 25 Mg Tab PO 25 mg TID ROSALEE Administration Insulin Human Regular 100 100 mls @ 1 mls/hr 02/23/21 22:00 02/24/21 11:00 units/ Sodium Chloride IV 02/27/21 10:00 Infused TITR ROSALEE Titration Protocol 1 UNITS/HR Sodium Chloride 1,000 mls @ 75 mls/hr 02/24/21 11:15 02/26/21 10:46 Nacl 0.9% 1000 Ml IV 75 mls/hr DIRECT ROSALEE Administration Ceftriaxone Sodium 2 gm in 100 mls @ 200 mls/hr 02/24/21 16:00 02/26/21 15:09 Rocephin/Ns 2 Gm/100 Ml IV 03/01/21 15:59 200 mls/hr Q24H ROSALEE Administration Protocol Insulin Human Isoph/Insulin Regular 20 unit 02/24/21 16:30 02/26/21 17:29 Insulin Nph/Regular 70/30 Inj SUB-Q 20 unit BIDAC ROSALEE Administration Insulin Human Lispro 0 unit 02/26/21 16:30 02/26/21 21:52 Insulin Lispro 100 Unit/Ml SUB-Q Not Given ACHS [facility] Protocol Levothyroxine Sodium 50 mcg 02/25/21 06:00 02/27/21 05:27 Levothyroxine 50 Mcg Tab PO 50 mcg DAILY@0600 ROSALEE Administration Magnesium Hydroxide 30 ml 02/23/21 22:18 Magnesium Hydroxide (Mom) Oral Liqd Udc PO Q4H PRN Constipation Metoprolol Tartrate 25 mg 02/25/21 10:00 02/26/21 10:43 Metoprolol Tartrate 25 Mg Tab PO 25 mg QDAY ROSALEE Administration Morphine Sulfate 2 mg 02/23/21 22:18 02/27/21 03:34 Morphine 2 Mg/1 Ml Inj IV 2 mg Q4H PRN Administration Pain, Moderate (4-6) Morphine Sulfate 4 mg 02/23/21 22:18 02/24/21 03:55 Morphine 4 Mg/1 Ml Inj IV 4 mg Q4H PRN Administration Pain , Severe (7-10) Ondansetron HCl 4 mg 02/23/21 22:18 02/24/21 03:55 Ondansetron 4 Mg/2 Ml Inj IV 4 mg Q8H PRN Administration Nausea And Vomiting Senna/Docusate Sodium 1 tab 02/24/21 22:00 02/26/21 21:36 Sennosides/Docusate Sodium 8.6/50 Mg Tab PO 1 tab QHS ROSALEE Administration Sodium Chloride 10 ml 02/24/21 10:00 02/26/21 21:52 Sodium Chloride 0.9% 10 Ml Flush Syringe IV 10 ml BID ROSALEE Administration Sodium Chloride 10 ml 02/23/21 22:18 Sodium Chloride 0.9% 10 Ml Flush Syringe IV PRN PRN LINE FLUSH Trazodone HCl 150 mg 02/24/21 22:00 02/26/21 21:40 Trazodone 50 Mg Tab PO 150 mg QHS ROSALEE Administration Nutrition/Malnutrition Assess - Dietary Evaluation Nutrition/Malnutrition Findings: Nutrition Notes Start: 02/24/21 07:41 Freq: Status: Active Protocol: Document 02/24/21 07:41 MK (Rec: 02/24/21 07:46 MK [id number]) Nutrition Notes Need for Assessment generated from: MD Order Initial or Follow up Brief Note Current Diagnosis Coronary Artery Disease, Diabetes,Hypertension Other Pertinent Diagnosis thyroid cancer s/p thyroidectomy, syncope, UTI Labs/Tests A1c 10.9 Subjective/Other Information MD consult for diet education. Pt with DKA due to inability to afford insulin. Pt is experiencing homelessness. Pt on hold in ED. Nutrition Intervention Follow-Up By: 02/28/21 Additional Comments F/u: diet education
[2021-02-27] MEDS: hydrALAZINE 25 MG TAB PO SCH ×3 (08:30→21:49)
[2021-02-27] MEDS: CLOPIDOGREL 75 MG TAB PO SCH (09:21)
[2021-02-27] MEDS: GABAPENTIN 300 MG CAP PO SCH ×3 (09:21→21:48)
[2021-02-27] MEDS: busPIRone 5 MG TAB PO SCH ×3 (09:22→21:49)
[2021-02-27] MEDS: ASPIRIN EC 81 MG TAB PO SCH (09:22)
[2021-02-27] MEDS: amLODIPine 10 MG TAB PO SCH (09:22)
--- NOTE | 2021-02-27 10:45 | XRay Report ---
Pelvis and right hip 3 views INDICATION: Fall FINDINGS: There is moderate degenerative change in bilateral hips. Superior and inferior pubic rami a ppear intact. No acute fracture or dislocation is definitely seen. IMPRESSION: Degenerative change in bilateral hips. Signer Name: Lenard Oden MD Signed: 02/27/2021 10:41 AM Workstation Name: [id number]
--- NOTE | 2021-02-27 13:03 | Progress Note ---
Assessment and Plan 70-year-old female with known history of coronary artery disease, hypertension, diabetes mellitus and thyroid cancer status post thyroidectomy presented to the emergency room following a syncopal episode hitting the back of her head. She was seen in the emergency room the day prior with hypoglycemia right hip pain. She was evaluated and subsequently discharged home from the emergency room. She said to be homeless and missed her transportation to a penitentiary and therefore was in the hospital vicinity all day. She was said to have gone into the bathroom and subsequently became lightheaded and had a syncopal episode during which she hit the back of her head. Patient denied any headache, no blurry vision, no nausea or vomiting, no diaphoresis. She denied any chest pain, no shortness of breath, no palpitations. She had some dysuria over the past few days but denied any hematuria. She denied any fever or chills. Denied any sick contacts and no contact with anyone with COVID-19. She has not had the COVID-19 vaccination. Work-up in the emergency room revealed a blood glucose of greater than 600, chest x-ray showed no acute findings, CT scan of the head shows moderate microvascular ischemic change, remote small deep infection which had been present in previous studies otherwise no intracranial abnormality. Urinalysis done revealed mild UTI at the time. Social history: She denies history of smoking, alcohol, or illicit drug use. She is and has 2 children. Today, patient is on room air, O2 sat 96%. Her respiratory rate is 16, in no respiratory distress. She denies shortness of breath, cough. She is afebrile. Blood pressure is 127/59, heart rate is 69. She has no leukocytosis. ] CXR (02/23/21) showed no significant change from 01/15/21). Patient is currently on Albuterol, Ceftriaxone, Plavix, and SubQ Heparin. - Patient Problems (1) Hyperosmolar hyperglycemic state (HHS) Current Visit: Yes Status: Acute Plan to address problem: Management as per primary care team. (2) Syncope and collapse Current Visit: Yes Status: Acute Plan to address problem: Management as per neurology and primary care team (3) Diabetes type 2, uncontrolled Current Visit: Yes Status: Chronic Plan to address problem: Management as per primary care team (4) HTN (hypertension) Current Visit: Yes Status: Chronic Qualifiers: Hypertension type: essential hypertension Plan to address problem: Management as per primary care team (5) Head contusion Current Visit: Yes Status: Acute Plan to address problem: Management as per neurology and primary care team (6) UTI (urinary tract infection) Current Visit: Yes Status: Acute Plan to address problem: Management as per primary care team Continue ceftriaxone (7) Acute chest pain Current Visit: No Status: Acute Plan to address problem: Management as per primary care team (8) Acute coronary syndrome Current Visit: No Status: Acute Plan to address problem: Management as per primary care team (9) Metabolic acidosis Current Visit: No Status: Acute Plan to address problem: Management as per primary care team (10) CAD (coronary artery disease) Current Visit: No Status: Chronic Qualifiers: Coronary Disease-Associated Artery/Lesion type: [place] artery [place] vs. transplanted heart: [place] heart Plan to address problem: Management as per primary care team Subjective Date of service: 02/27/21 Interval history: 70-year-old female with known history of coronary artery disease, hypertension, diabetes mellitus and thyroid cancer status post thyroidectomy presented to the emergency room following a syncopal episode hitting the back of her head. She was seen in the emergency room the day prior with hypoglycemia right hip pain. She was evaluated and subsequently discharged home from the emergency room. She said to be homeless and missed her transportation to a penitentiary and therefore was in the hospital vicinity all day. She was said to have gone into the bathroom and subsequently became lightheaded and had a syncopal episode during which she hit the back of her head. Patient denied any headache, no blurry vision, no nausea or vomiting, no diaphoresis. She denied any chest pain, no shortness of breath, no palpitations. She had some dysuria over the past few days but denied any hematuria. She denied any fever or chills. Denied any sick contacts and no contact with anyone with COVID-19. She has not had the COVID-19 vaccination. Work-up in the emergency room revealed a blood glucose of greater than 600, chest x-ray showed no acute findings, CT scan of the head shows moderate microvascular ischemic change, remote small deep infection which had been present in previous studies otherwise no intracranial abnormality. Urinalysis done revealed mild UTI at the time. Social history: She denies history of smoking, alcohol, or illicit drug use. She is and has 2 children. Today, patient is on room air, O2 sat 96%. Her respiratory rate is 16, in no respiratory distress. She denies shortness of breath, cough. She is afebrile. Blood pressure is 127/59, heart rate is 69. She has no leukocytosis. ] CXR (02/23/21) showed no significant change from 01/15/21). Patient is currently on Albuterol, Ceftriaxone, Plavix, and SubQ Heparin. Objective Vital Signs - 12hr 02/27/21 02/27/21 02/27/21 03:34 04:37 09:17 Temperature 98.4 F 97.9 F Pulse Rate 73 79 Respiratory 20 18 20 Rate Blood Pressure 143/65 147/61 O2 Sat by Pulse 96 95 Oximetry 02/27/21 02/27/21 02/27/21 10:00 10:47 11:17 Temperature Pulse Rate Respiratory 17 18 15 Rate Blood Pressure O2 Sat by Pulse 96 Oximetry 02/27/21 11:38 Temperature 98.3 F Pulse Rate 69 Respiratory 20 Rate Blood Pressure 132/60 O2 Sat by Pulse 95 Oximetry Constitutional: no acute distress, other (Obese) Eyes: non-icteric ENT: oropharynx moist Neck: supple Effort: normal Ascultation: Bilateral: clear Cardiovascular: regular rate and rhythm Gastrointestinal: normoactive bowel sounds, soft, non-tender Integumentary: normal Extremities: no cyanosis, no edema Neurologic: normal mental status Psychiatric: mood appropriate CBC and BMP: 02/26/21 05:18 02/26/21 05:18 ABG, PT/INR, D-dimer: PT/INR, D-dimer PT 12.7 Sec. (12.2-14.9) 02/23/21 18:55 INR 0.90 (0.87-1.13) 02/23/21 18:55 Abnormal lab findings: Abnormal Labs 02/23/21 02/23/21 02/23/21 18:30 18:55 18:55 Lymph % (Auto) [place] % (Auto) 8.0 H Eos % (Auto) Lymph # (Auto) 0.8 L Seg Neutrophils % 75.3 H APTT 23.8 L Sodium Potassium Chloride Carbon Dioxide BUN Glucose POC Glucose > 600 H Hemoglobin A1c Calcium Alkaline Phosphatase Albumin 02/23/21 02/23/21 02/23/21 18:55 20:07 21:46 Lymph % (Auto) [place] % (Auto) Eos % (Auto) Lymph # (Auto) Seg Neutrophils % APTT Sodium 133 L Potassium 3.5 L D Chloride 97.8 L Carbon Dioxide 20 L D BUN 21 H 20 H Glucose 632 H* 333 H POC Glucose > 600 H Hemoglobin A1c Calcium 8.3 L Alkaline Phosphatase 144 H Albumin 3.6 L 02/24/21 02/24/21 02/24/21 04:31 04:54 04:54 Lymph % (Auto) [place] % (Auto) Eos % (Auto) Lymph # (Auto) Seg Neutrophils % APTT Sodium Potassium Chloride Carbon Dioxide BUN Glucose 301 H POC Glucose 264 H Hemoglobin A1c 10.9 H Calcium Alkaline Phosphatase Albumin 02/24/21 02/24/21 02/24/21 04:54 06:34 11:13 Lymph % (Auto) [place] % (Auto) 8.8 H Eos % (Auto) 4.5 H Lymph # (Auto) Seg Neutrophils % APTT Sodium Potassium Chloride Carbon Dioxide BUN Glucose POC Glucose 192 H 41 L Hemoglobin A1c Calcium Alkaline Phosphatase Albumin 02/24/21 02/24/21 02/24/21 12:14 15:06 19:22 Lymph % (Auto) [place] % (Auto) Eos % (Auto) Lymph # (Auto) Seg Neutrophils % APTT Sodium Potassium Chloride Carbon Dioxide BUN Glucose 247 H POC Glucose 166 H 207 H Hemoglobin A1c Calcium Alkaline Phosphatase Albumin 02/24/21 02/25/21 02/25/21 22:45 10:16 12:23 Lymph % (Auto) [place] % (Auto) Eos % (Auto) Lymph # (Auto) Seg Neutrophils % APTT Sodium Potassium Chloride Carbon Dioxide BUN Glucose 240 H POC Glucose 195 H 152 H Hemoglobin A1c Calcium 8.0 L Alkaline Phosphatase Albumin 02/25/21 02/25/21 02/26/21 17:10 18:21 05:18 Lymph % (Auto) 36.1 H [place] % (Auto) 7.9 H Eos % (Auto) 5.7 H Lymph # (Auto) Seg Neutrophils % APTT Sodium Potassium Chloride Carbon Dioxide BUN Glucose POC Glucose 33 L 67 L Hemoglobin A1c Calcium Alkaline Phosphatase Albumin 02/26/21 02/26/21 02/26/21 05:18 07:38 11:06 Lymph % (Auto) [place] % (Auto) Eos % (Auto) Lymph # (Auto) Seg Neutrophils % APTT Sodium Potassium Chloride 109.0 H Carbon Dioxide BUN Glucose 165 H POC Glucose 205 H 305 H Hemoglobin A1c Calcium 8.2 L Alkaline Phosphatase Albumin 02/26/21 02/27/21 02/27/21 16:40 07:45 11:37 Lymph % (Auto) [place] % (Auto) Eos % (Auto) Lymph # (Auto) Seg Neutrophils % APTT Sodium Potassium Chloride Carbon Dioxide BUN Glucose POC Glucose 197 H 195 H 165 H Hemoglobin A1c Calcium Alkaline Phosphatase Albumin Chest x-ray: report reviewed, image reviewed CT scan - chest: report reviewed, image reviewed Additional Studies: CHEST 2 VIEWS 02/23/21 INDICATION / CLINICAL INFORMATION: hyperglycemia, syncope. COMPARISON: 01/15/2021 FINDINGS: Patient is rotated SUPPORT DEVICES: None. HEART / MEDIASTINUM: No significant abnormality. LUNGS / PLEURA: No acute pulmonary or pleural abnormality is identified. There is mild elevation right hemidiaphragm. No pneumothorax. ADDITIONAL FINDINGS: No significant additional findings. IMPRESSION: 1. No significant change. CTA CHEST WITH CONTRAST 08/26/20 INDICATION / CLINICAL INFORMATION: syncope, rule out PE. TECHNIQUE: Axial CT images were obtained through the chest after injection of 100 cc of Omnipaque IV contrast. 3 plane MIP and/or 3D reconstructions were produced. All CT scans at this location are performed using CT dose reduction for ALARA by means of automated exposure control. COMPARISON: None available. FINDINGS: PULMONARY ARTERIES: No pulmonary emboli. THORACIC AORTA: No significant abnormality. HEART: No significant abnormality. CORONARY ARTERY CALCIFICATION: Moderate. MEDIASTINUM / KASANDRA: No significant abnormality. PLEURA: No pleural effusion. No pneumothorax. LUNGS: There is mild atelectasis in the lingula. There is a calcified granuloma in the right upper lobe. ADDITIONAL FINDINGS: Fat density nodules are noted in the superior left breast characteristic of fat necrosis. UPPER ABDOMEN: No acute findings. SKELETAL STRUCTURES: No acute abnormality IMPRESSION: 1. No CT evidence for pulmonary embolism. 2. No acute findings.
[2021-02-27] MEDS: cefTRIAXone/NS 2 GM/100 ML 2 GM/100 ML BAG IV SCH (16:57)
[2021-02-27] MEDS: traZODone 50 MG TAB PO SCH (21:48)
[2021-02-27] MEDS: SENNOSIDES/DOCUSATE SODIUM 8.6/50 MG TAB PO SCH (21:49)
[2021-02-27] MEDS: SODIUM CHLORIDE 0.9% 1000 ML 1,000 ML IV SCH (22:46)
[2021-02-28] MEDS: HEPARIN 5,000 UNIT/1 ML VIAL SUB-Q SCH ×2 (06:37→13:19)
[2021-02-28] MEDS: LEVOTHYROXINE 50 MCG TAB PO SCH (06:37)
[2021-02-28] MEDS: INSULIN LISPRO 100 UNIT/ML SUB-Q SCH ×3 (09:00→17:28)
[2021-02-28] MEDS: MORPHINE 2 MG/1 ML INJ IV PRN (09:13)
[2021-02-28] MEDS: ASPIRIN EC 81 MG TAB PO SCH (09:14)
[2021-02-28] MEDS: METOPROLOL TARTRATE 25 MG TAB PO SCH (09:14)
[2021-02-28] MEDS: amLODIPine 10 MG TAB PO SCH (09:14)
[2021-02-28] MEDS: GABAPENTIN 300 MG CAP PO SCH ×2 (09:14→13:18)
[2021-02-28] MEDS: hydrALAZINE 25 MG TAB PO SCH ×2 (09:14→13:18)
[2021-02-28] MEDS: busPIRone 5 MG TAB PO SCH ×2 (09:14→13:18)
[2021-02-28] MEDS: CLOPIDOGREL 75 MG TAB PO SCH (09:15)
[2021-02-28] MEDS: INSULIN NPH/REGULAR 70/30 INJ SUB-Q SCH ×2 (10:36→17:30)
--- NOTE | 2021-02-28 11:12 | Discharge Summary ---
Providers - Providers Date of Admission: 02/23/21 22:19 Date of discharge: 02/28/21 Attending physician: DEN MCKEON MD 02/23/21 21:42 Consult to Dietitian/Nutrition [CONS] Routine Physician Instructions: Reason For Exam: DKA Reason for Consult: Nutrition Recommendations Reason for Consult: Diet education 02/23/21 22:19 Consult to Physician [CONS] Routine Comment: Consulting Provider: KAREN HURD Physician Instructions: Reason For Exam: Hyperosmolar Hyperglycemic non-ketotic state 02/24/21 05:36 Consult to Case Management [CONS] Routine Services Needed at Discharge: Batter Dep[employer]itor Notified:: case management Comment:: Patient is homeless 02/25/21 08:22 Physical Therapy Evaluation and Treat [CONS] Routine Comment: Reason For Exam: dconditioning 02/26/21 15:36 Physical Therapy Evaluation and Treat [CONS] Routine Comment: Reason For Exam: PT for gait eval Primary care physician: [employer]ING [employer]INTER Hospitalization Reason for admission: syncope Condition: Fair Hospital course: HPI: 70-year-old female with known history of coronary artery disease, hypertension, diabetes mellitus and thyroid cancer status post thyroidectomy presented to the emergency room yesterday(02/23/2021) with reportedly a syncopal episode hitting the back of her head. She was seen in the emergency room on 02/22/2021 with hypoglycemia right hip pain. She was evaluated and subsequently discharged home from the emergency room. She is said to be homeless and missed her transportation to a snf and therefore was in the hospital all day. She was said to have gone into the bathroom on the day of admission and subsequently became lightheaded and had a syncopal episode during which she hit the back of her head. Work-up in the emergency room today reveals a blood glucose of greater than 600, chest x-ray showed no acute findings, CT scan of the head shows moderate microvascular ischemic change, remote small deep infection which had been present in previous studies otherwise no intracranial abnormality. Urinalysis done about 24 hours ago also reveals mild UTI. Sepsis. Patient meets criteria given the tachycardia, tachypnea and diagnosis of UTI. UTI. Hypertension Diabetes mellitus type 2 Peripheral neuropathy CAD Thyroid cancer s/p thyroidectomy Homelessness DVT prophylaxis 02/24/2021. Follow-up blood and urine cultures. Continue IV antibiotics. Continue SSRI and Accu-Cheks. Hypoglycemia secondary to the IV fluids of D5W started by the admitting physician. We will discontinue D5 IV fluids and start normal saline. Transfer the patient to a medical floor. Patient complains of severe peripheral neuropathy and difficulty ambulating. PT/OT. Continue gabapentin. Case management follow-up for homelessness. 02/25/2021. Blood cultures negative x24 hours. Continue IV antibiotics. Continue 70/30 insulin 20 units twice daily. BG improved with discontinuation o f D5 IV fluids. PT evaluation with regards to severe peripheral neuropathy and difficulty ambulating. Case management follow-up for homelessness. 02/26/2021. Blood and urine cultures remain negative. Consider discontinuation of antibiotics. BG is well controlled. Await PT evaluation and case management recommendations for discharge planning. 02/27/2021. Blood and urine cultures remain negative. Consider discontinuation of antibiotics. BG is well controlled. Await PT evaluation and case management recommendations for discharge planning. Patient complains of right hip pain today but did not previously report any pain associated with her syncope on 02/23. Check right hip films. 02/28/2021: Antibiotics discontinued. XR hip negative for acute fractures. Patieent advised to take prn tylenol for pain. Patient has completed therapy. PT recommends home with rolling walker. No additional needs. Discussed with CM this morning. Patient will be dsicharged home. Disposition: TO HOME OR SELFCARE Final Discharge Diagnosis (Prints w/discharge instructions): Sepsis, UTI Core Measure Documentation - Palliative Care Palliative Care/ Comfort Measures: Not Applicable - Core Measures Any of the following diagnoses?: none Exam - Physical Exam Narrative exam: - EENT Eyes: Present: PERRL, EOM intact ENT: hearing intact, clear oral mucosa, dentition normal - Neck Neck: Present: supple, normal ROM - Respiratory Respiratory effort: normal Respiratory: bilateral: CTA - Cardiovascular Rhythm: regular Heart Sounds: Present: S1 & S2. Absent: gallop, rub - Extremities Extremities: no ischemia, No edema, some tenderness on right hip. - Abdominal General gastrointestinal: soft, non-tender, non-distended, normal bowel sounds - Integumentary Integumentary: Present: clear, warm, dry - Neurologic Neurologic: CNII-XII intact, moves all extremities - Constitutional Vitals: Temp Pulse Resp BP Pulse Ox 98.1 F 77 18 158/75 96 02/28/21 07:54 02/28/21 09:14 02/28/21 08:26 02/28/21 09:14 02/28/21 08:26 Plan Activity: fall precautions Weight Bearing Status: Weight Bear as Tolerated Diet: diabetic Durable Medical Equipment Needed Upon Discharge: Walker-Rolling Follow up with: PRIMARY CARE, [Primary Care Provider] - 3-5 Days Prescriptions: AtorvaSTATin [Lipitor] 40 mg PO QHS #30 Acetaminophen [Acetaminophen TAB] 650 mg PO Q8H PRN 30 Days #90 tablet PRN Reason: . amLODIPine 10 mg PO DAILY 30 Days #30 tablet hydrALAZINE [Apresoline TAB] 25 mg PO TID 90 Days #30 tablet busPIRone [Buspar] 5 mg PO TID 30 Days #90 tablet Gabapentin 600 mg PO TID 30 Days #90 capsule Aspirin EC [Halfprin EC] 81 mg PO QDAY 30 Days #30 tablet Metoprolol [Lopressor TAB] 25 mg PO QDAY 30 Days #60 tab Insulin NPH/Regular [NovoLIN 70/30] 20 unit SUB-Q BIDAC 30 Days #1 vial Clopidogrel [Plavix] 75 mg PO QDAY 30 Days #30 tablet
[2021-02-28 11:51] VITALS: BP 130/63
[2021-02-28] MEDS: cefTRIAXone/NS 2 GM/100 ML 2 GM/100 ML BAG IV SCH (17:13)
== END 2021-02-28 17:58 | disposition home or self-care (01) | DRG 871 ==
LOC: ED 17:02 → CC1 22:19 → 3A 02-24 11:15 → 4A 02-24 17:04
PROVIDERS: ADMIT Internal Medicine Geriatric Medicine; ATTEND Internal Medicine
DX: A41.9 Sepsis, unspecified organism (principal); E11.00 Type 2 diabetes mellitus with hyperosmolarity without nonketotic hyperglycemic-hyperosmolar coma (NKHHC); N39.0 Urinary tract infection, site not specified; I24.9 Acute ischemic heart disease, unspecified; E87.2 Acidosis; Z59.0 Homelessness; G62.9 Polyneuropathy, unspecified; C73 Malignant neoplasm of thyroid gland; E11.65 Type 2 diabetes mellitus with hyperglycemia; I10 Essential (primary) hypertension; I25.10 Atherosclerotic heart disease of native coronary artery without angina pectoris; W22.01XA Walked into wall, initial encounter; E11.40 Type 2 diabetes mellitus with diabetic neuropathy, unspecified; J44.9 Chronic obstructive pulmonary disease, unspecified; J45.909 Unspecified asthma, uncomplicated; S00.93XA Contusion of unspecified part of head, initial encounter; Z85.850 Personal history of malignant neoplasm of thyroid; Z95.5 Presence of coronary angioplasty implant and graft; Z79.899 Other long term (current) drug therapy; Z79.82 Long term (current) use of aspirin; Z79.4 Long term (current) use of insulin; I25.2 Old myocardial infarction; Z88.5 Allergy status to narcotic agent; Z88.2 Allergy status to sulfonamides; Y93.89 Activity, other specified; Y92.89 Other specified places as the place of occurrence of the external cause; Y99.8 Other external cause status
CPT/HCPCS: 36415; 70450; 71046; 71275; 72125; 80048; 80053; 80076; 81001; 82805; 82962; 83036; 83690; 83735; 83880; 83930; 84100; 84443; 84484; 85025; 85610; 85730; 87040; 87086; 93005; 93970; 94640; 96361; 96374; 99284; G0378; A9270-GY; J0696; J1644; J1815; J2270; J2405; J7030; Q9967